=== PATIENT | female | born 1985 | race Caucasian/White ===

== ENCOUNTER 2018-09-29 18:09 | Emergency (ER) | payer SELFPAY ==
[2018-09-29] MEDS ORDERED: NA CHLORIDE 0.9% 1,000 ML ONE (18:46)
[2018-09-29 19:09] LABS: Absolute Lymphocytes (CBC) 2.2 K/uL (0.7-4.9); Basophils % 0.5 % (0-1.3); Eosinophils % 0.6 % (0-4.4); Hematocrit 40.8 % (36.0-45.0); Lymphocytes % 21.9 % (15.3-44.8); MPV 8.2 fL (7.6-11.3); Monocytes % 4.4 % (3.3-12.3); RBC Red Blood Cell Count 4.85 M/uL (3.86-4.86)
[2018-09-29 19:17] LABS: Albumin 3.6 g/dL (3.4-5.0); Bilirubin Direct 0.1 mg/dL (0-0.2); Bilirubin Total 0.5 mg/dL (0.2-1.0); Potassium 3.6 mmol/L (3.5-5.1); Protein, Total 6.9 g/dL (6.4-8.2)
--- NOTE | 2018-09-29 20:03 | RAD REPORT ---
EXAM DESCRIPTION: CTAbdomen Pelvis W Contrast - 09/29/2018 7:55 pm CLINICAL HISTORY: Abdominal pain. gi bleeding COMPARISON: Head C Spine Cap W Con dated 03/24/2017 TECHNIQUE: Biphasic CT imaging of the abdomen and pelvis was performed with 100 ml non-ionic IV cont rast. All CT scans are performed using dose optimization technique as appropriate and may include automated exposure control or mA/KV adjustment according to patient size. FINDINGS: The lung bases are clear. The liver, spleen, pancreas, adrenal glands and kidneys are within normal limits. No bowel obstruction, free air, free fluid or abscess. The appendix is not identified as a discrete structure, however, no secondary findings of appendicitis are identified. No evidence of significan t lymphadenopathy. No suspicious bony findings. IMPRESSION: No acute intra-abdominal or pelvic finding.
--- NOTE | 2018-09-29 20:43 | ER ---
Nurse's Notes [facility] Name: Latosha Wilkinson Age: 32 yrs Sex: Female : 1985 Arrival Date: 09/29/2018 Time: 18:11 Bed 17 Private MD: Diagnosis: Diarrhea, unspecified Presentation: 09/29 18:13 Presenting complaint: Patient states: valerio been having blood on my bowel movement for 2 hj weeks now and its daily and today im light headed; reports abd pain, N/V;. Transition of care: patient was not received from another setting of care. Onset of symptoms was September 29, 2018. Risk Assessment: Do you want to hurt yourself or someone else? Patient reports no desire to harm self or others. Initial Sepsis Screen: Does the patient meet any 2 criteria? No. Patient's initial sepsis screen is negative. Does the patient have a suspected source of infection? No. Patient's initial sepsis screen is negative. Care prior to arrival: None. 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 - Social history:: Smoking status: . - Ebola Screening: : Patient denies travel to an Ebola-affected area in the 21 days before illness onset. Screenin:21 Abuse screen: Denies threats or abuse. Nutritional screening: No deficits noted. tw2 Tuberculosis screening: No symptoms or risk factors identified. Fall Risk None identified. Assessment: 18:24 General: Appears in no apparent distress. slender, Behavior is calm, cooperative, tw2 appropriate for age. Pain: Denies pain. Neuro: Level of Consciousness is awake, alert, obeys commands, Oriented to person, place, time, situation. Cardiovascular: Heart tones S1 S2 Patient's skin is warm and dry. Respiratory: Airway is patent Respiratory effort is even, unlabored, Respiratory pattern is regular, symmetrical, Breath sounds are clear bilaterally. GI: Abdomen is flat, Bowel sounds present X 4 quads. Reports bloody stool. : No signs and/or symptoms were reported regarding the genitourinary system. EENT: No signs and/or symptoms were reported regarding the EENT system. Derm: No signs and/or symptoms reported regarding the dermatologic system. Musculoskeletal: Range of motion: intact in all extremities. 19:13 Reassessment: Patient appears in no apparent distress at this time. Patient and/or tl2 family updated on plan of care and expected duration. Pain level reassessed. Patient is alert, oriented x 3, equal unlabored respirations, skin warm/dry/pink. awaiting lab results, pt resting, no questions or concerns at this time. 21:10 Reassessment: Patient appears in no apparent distress at this time. Patient and/or tl2 family updated on plan of care and expected duration. Pain level reassessed. Patient is alert, oriented x 3, equal unlabored respirations, skin warm/dry/pink. pt verbalized understanding of discharge instructions, need for follow up and prescription usage. Vital Signs: 18:15 BP 100 / 62; Pulse 72; Resp 18; Temp 97.8(TE); Pulse Ox 99% on R/A; Weight 61.23 kg; hj Height 5 ft. 3 in. (160.02 cm); 19:14 BP 94 / 61; Pulse 66; Resp 18; Pulse Ox 98% on R/A; tl2 20:26 BP 100 / 68; Pulse 62; Resp 18; Pulse Ox 98% on R/A; tl2 20:26 BP 99 / 71 Supine; Pulse 58; tl2 20:26 BP 100 / 68 Sitting; Pulse 62; tl2 20:26 BP 102 / 77 Standing; Pulse 61; tl2 18:15 Body Mass Index 23.91 (61.23 kg, 160.02 cm) ED Course: 18:11 Patient arrived in ED. as 18:14 Triage completed. hj 18:14 Arm band placed on right wrist. hj 18:18 Charlie Rueda PA is PHCP. [facility] 18:18 Felix Diamond MD is Attending Physician. [facility] 18:21 Shi Lacey RN is Primary Nurse. tw2 18:21 Bed in low position. Call light in reach. Adult w/ patient. tw2 18:45 Inserted saline lock: 22 gauge in right antecubital area, using aseptic technique. tw2 Blood collected. 19:07 Report given to Nohemy,RN - pending results at this time. tw2 19:34 Radiology exam delayed due to test not completed at this time. vm2 19:57 CT Abd/Pelvis - IV Contrast Only In Process Unspecified. EDMS 20:43 Leo Kent MD is Referral Physician. jmm 21:10 No provider procedures requiring assistance completed. IV discontinued, intact, tl2 bleeding controlled, No redness/swelling at site. Pressure dressing applied. Administered Medications: 18:47 Drug: NS 0.9% 1000 ml Route: IV; Rate: 1 bolus; Site: right antecubital; tw2 19:50 Follow up: IV Status: Completed infusion; IV Intake: 1000ml tl2 Intake: 19:50 IV: 1000ml; Total: 1000ml. tl2 Outcome: 20:42 Discharge ordered by . jmm 21:10 Discharged to home ambulatory, with family. tl2 21:10 Condition: stable 21:10 Discharge instructions given to patient, Instructed on discharge instructions, follow up and referral plans. medication usage, Demonstrated understanding of instructions, follow-up care, medications, Prescriptions given X 1. 21:14 Patient left the ED. tl2 Signatures: Dispatcher [employer] EDMS Charlie Rueda PA PA jmm Martinez, Amelia as Joaquin, Henry, RN RN hj Wise, Tara, RN RN 2 Nohemy Zhou RN RN 2 Milvia Caputo 2 Corrections: (The following items were deleted from the chart) 18:16 18:15 61.23 kg; Height 5 ft. 3 in.; BMI: 23.9; hj hj 18:16 18:15 Pulse 72bpm; Resp 18bpm; Pulse Ox 99% RA; Temp 97.8F Temporal; 61.23 kg; Height 5 hj ft. 3 in.; BMI: 23.9; hj
--- NOTE | 2018-09-29 20:43 | EDPHYS ---
Physician Documentation [facility] Name: Latosha Wilkinson Age: 32 yrs Sex: Female : 1985 Arrival Date: 09/29/2018 Time: 18:11 Bed 17 Private MD: ED Physician Felix Diamond HPI: 09/29 18:21 This 32 yrs old Female presents to ER via Ambulatory with complaints of jmm Bloody Stools. 18:21 The patient presents to the emergency department with nausea, diarrhea, abdominal pain. jmm Onset: The symptoms/episode began/occurred gradually, 2 week(s) ago. Possible causes: unknown. The symptoms are aggravated by nothing. The symptoms are alleviated by nothing. Associated signs and symptoms: Pertinent positives: abdominal pain, diarrhea, Pertinent negatives: fever. The patient has experienced similar episodes in the past. This is a 32 year old female with no known chronic medical conditions that presents to the ED with complaints of abdominal pain, diarrhea, and blood stools for the past 2 weeks. Patient also complains of weakness and fatigue. Patient denies fever. Patient has had similar episode in the past when diagnosed with hemorrhoids. . 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 - Social history:: Smoking status: . - Ebola Screening: : Patient denies travel to an Ebola-affected area in the 21 days before illness onset. ROS: 18:21 Constitutional: Negative for fever, chills, and weight loss, Cardiovascular: Negative jmm for chest pain, palpitations, and edema, Respiratory: Negative for shortness of breath, cough, wheezing, and pleuritic chest pain. 18:21 Abdomen/GI: Positive for abdominal pain, diarrhea. 18:21 Neuro: Positive for weakness. 18:21 All other systems are negative. Exam: 18:21 Constitutional: This is a well developed, well nourished patient who is awake, alert, jmm and in no acute distress. Head/Face: atraumatic. Eyes: EOMI, no conjunctival erythema appreciated ENT: Moist Mucus Membranes Neck: Trachea midline, Supple Chest/axilla: Normal chest wall appearance and motion. Cardiovascular: Regular rate and rhythm. No edema appreciated Respiratory: Normal respirations, no respiratory distress appreciated 18:21 Back: Normal ROM Skin: General appearance color normal MS/ Extremity: Moves all extremities, no obvious deformities appreciated, no edema noted to the lower extremities Neuro: Awake and alert, normal gait Psych: Behavior is normal, Mood is normal, Patient is cooperative and pleasant 18:21 Abdomen/GI: Inspection: abdomen appears normal, Bowel sounds: normal, Palpation: abdomen is soft and non-tender, in all quadrants. Vital Signs: 18:15 BP 100 / 62; Pulse 72; Resp 18; Temp 97.8(TE); Pulse Ox 99% on R/A; Weight 61.23 kg; hj Height 5 ft. 3 in. (160.02 cm); 19:14 BP 94 / 61; Pulse 66; Resp 18; Pulse Ox 98% on R/A; tl2 20:26 BP 100 / 68; Pulse 62; Resp 18; Pulse Ox 98% on R/A; tl2 20:26 BP 99 / 71 Supine; Pulse 58; tl2 20:26 BP 100 / 68 Sitting; Pulse 62; tl2 20:26 BP 102 / 77 Standing; Pulse 61; tl2 18:15 Body Mass Index 23.91 (61.23 kg, 160.02 cm) hj MDM: 18:21 Patient medically screened. [facility] 20:40 Data reviewed: vital signs, nurses notes. Counseling: I had a detailed discussion with alexis the patient and/or guardian regarding: the historical points, exam findings, and any diagnostic results supporting the discharge/admit diagnosis, lab results, radiology results, the need for outpatient follow up, to return to the emergency department if symptoms worsen or persist or if there are any questions or concerns that arise at home. 21:09 ED course: Patient is alert and non toxic in appearance in the ED. Orthostatics normal. [facility] patient is advised to follow up with gi for further evaluation. patient is otherwise given strict return precautions. patient understood and agrees with the plan of care. . 09/29 18: Order name: Basic Metabolic Panel; Complete Time: 19:29 [facility] 09/29 18:27 Order name: CBC with Diff; Complete Time: 19:29 [facility] 09/29 18:27 Order name: Creatinine for Radiology; Complete Time: 19:29 [facility] 09/29 18:27 Order name: Hepatic Function; Complete Time: 19:29 [facility] 09/29 18:27 Order name: Lipase; Complete Time: 19:29 [facility] 09/29 18:27 Order name: Type And Screen; Complete Time: 19:43 [facility] 09/29 18:27 Order name: IV Saline Lock; Complete Time: 18:48 [facility] 09/29 18:27 Order name: Labs collected and sent; Complete Time: 18:48 [facility] 09/29 19:31 Order name: CT Abd/Pelvis - IV Contrast Only; Complete Time: 20:11 [facility] 09/29 19:31 Order name: Urine Test (obtain specimen); Complete Time: 19:35 [facility] 09/29 20:09 Order name: Urine Dipstick--Ancillary (enter results); Complete Time: 21:10 [facility] 09/29 20:09 Order name: Urine --Ancillary (enter results); Complete Time: 21:10 [facility] 09/29 20:22 Order name: Orthostatic Blood Pressure; Complete Time: 20:27 [facility] Administered Medications: 18:47 Drug: NS 0.9% 1000 ml Route: IV; Rate: 1 bolus; Site: right antecubital; tw2 19:50 Follow up: IV Status: Completed infusion; IV Intake: 1000ml tl2 Disposition: 09/29/18 20:42 Discharged to Home. Impression: Diarrhea, unspecified. - Condition is Stable. - Discharge Instructions: Food Choices to Help Relieve Diarrhea, Adult, Bloody Diarrhea. - Prescriptions for Bentyl 20 mg Oral Tablet - take 1 tablet by ORAL route every 6 hours As needed; 20 tablet. - Medication Reconciliation Form, Thank You Letter, Antibiotic Education, Prescription Opioid Use form. - Follow up: Private Physician; When: 2 - 3 days; Reason: Recheck today's complaints, Continuance of care, Re-evaluation by your physician. Follow up: Leo Kent MD; When: 2 - 3 days; Reason: Recheck today's complaints, Continuance of care, Re-evaluation by your physician. Signatures: Dispatcher [employer] EDMS Charlie Rueda PA PA jmm Joaquin, Henry, RN RN hj Wise, Tara, RN RN tw2 Nohemy Zhou RN RN tl2 Corrections: (The following items were deleted from the chart) 20:43 20:42 09/29/2018 20:42 Discharged to Home. Impression: Diarrhea, unspecified. Condition jmm is Stable. Forms are Medication Reconciliation Form, Thank You Letter, Antibiotic Education, Prescription Opioid Use. Follow up: Private Physician; When: 2 - 3 days; Reason: Recheck today's complaints, Continuance of care, Re-evaluation by your physician. [email or web address] 21:14 20:43 09/29/2018 20:42 Discharged to Home. Impression: Diarrhea, unspecified. Condition tl2 is Stable. Discharge Instructions: Food Choices to Help Relieve Diarrhea, Adult, Bloody Diarrhea. Forms are Medication Reconciliation Form, Thank You Letter, Antibiotic Education, Prescription Opioid Use. Follow up: Private Physician; When: 2 - 3 days; Reason: Recheck today's complaints, Continuance of care, Re-evaluation by your physician. Follow up: Leo Kent; When: 2 - 3 days; Reason: Recheck today's complaints, Continuance of care, Re-evaluation by your physician. [facility]
[2018-09-29 21:07] LABS: Urine Blood NEGATIVE (NEG); Urine Glucose NEGATIVE (NEG); Urine Protein 2+ (NEG); Urine Specific Gravity >1.030 (1.005-1.030)
== END 2018-09-29 21:14 | disposition home or self-care (01) ==
LOC: ER 18:09
DX: R19.7 Diarrhea, unspecified (principal)
CPT/HCPCS: 36415; 74177; 80048; 80076; 81003; 81025; 83690; 85025; 86850; 86900; 86901; J7030; Q9967

== ENCOUNTER 2019-06-02 10:22 | Emergency (ER) | payer SELFPAY ==
[2019-06-02] MEDS ORDERED: LIDOCAINE 1% MPF 5 ML VIAL ONE ×2 (11:49→12:23)
--- NOTE | 2019-06-02 12:45 | ER ---
Nurse's Notes [facility] Name: Latosha Wilkinson Age: 33 yrs Sex: Female : 1985 Arrival Date: 06/02/2019 Time: 10:28 Bed 20 Private MD: Diagnosis: Abscess of Bartholin's gland Presentation: 06/01 10:55 Chief complaint: Patient states: right side of labia is swollen X 4 days, feels like a iw knot is in it. Coronavirus screen: The patient has NOT traveled to a country currently being monitored by the [facility] within the last 14 days. Proceed with normal triage procedures. The patient has NOT had contact with any known and/or suspected case of coronavirus. Proceed with normal triage procedures. Ebola Screen: Patient negative for fever greater than or equal to 101.5 degrees Fahrenheit, and additional compatible Ebola Virus Disease symptoms Patient denies exposure to infectious person. Patient denies travel to an Ebola-affected area in the 21 days before illness onset. No symptoms or risks identified at this time. Initial Sepsis Screen: Does the patient meet any 2 criteria? No. Patient's initial sepsis screen is negative. Does the patient have a suspected source of infection? No. Patient's initial sepsis screen is negative. Risk Assessment: Do you want to hurt yourself or someone else? Patient reports no desire to harm self or others. 10:55 Method Of Arrival: Ambulatory iw 10:55 Acuity: MARIANNE 4 iw 11:15 Onset of symptoms is unknown. 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 - Social history:: Smoking status: Patient reports the use of cigarette tobacco products, smokes one-half pack cigarettes per day. Screenin:15 Abuse screen: Denies threats or abuse. Denies injuries from another. Nutritional screening: No deficits noted. Tuberculosis screening: No symptoms or risk factors identified. Fall Risk None identified. Assessment: 11:15 General: Appears in no apparent distress. Behavior is calm, cooperative, appropriate wh for age. Pain: Denies pain. Neuro: Level of Consciousness is awake, alert, obeys commands, Oriented to person, place, time, situation, Appropriate for age. Cardiovascular: Capillary refill < 3 seconds. Respiratory: Airway is patent Respiratory effort is even, unlabored, Respiratory pattern is regular, symmetrical. GI: Abdomen is flat, non-distended. : Reports right side of labia swelling. EENT: No signs and/or symptoms were reported regarding the EENT system. Derm: Skin is intact, is healthy with good turgor, Skin is pink, warm \T\ dry. normal. Musculoskeletal: Circulation, motion, and sensation intact. 12:22 Reassessment: Patient appears in no apparent distress at this time. No changes from previously documented assessment. Patient and/or family updated on plan of care and expected duration. Pain level reassessed. Patient is alert, oriented x 3, equal unlabored respirations, skin warm/dry/pink. I\T\D at bedside by provider. 13:01 Reassessment: Patient appears in no apparent distress at this time. No changes from previously documented assessment. Patient and/or family updated on plan of care and expected duration. Pain level reassessed. Patient is alert, oriented x 3, equal unlabored respirations, skin warm/dry/pink. Vital Signs: 10:55 BP 99 / 74; Pulse 82; Resp 16; Temp 97.4; Pulse Ox 100% on R/A; Weight 54.43 kg; Height iw 5 ft. 3 in. (160.02 cm); Pain 8/10; 12:30 BP 99 / 63; Pulse 78; Resp 18; Pulse Ox 99% ; wh 10:55 Body Mass Index 21.26 (54.43 kg, 160.02 cm) iw ED Course: 10:28 Patient arrived in ED. mr 10:56 Triage completed. iw 10:57 Arm band placed on. iw 11:12 Juan Carlos Snider is Primary Nurse. wh 11:15 Patient has correct armband on for positive identification. Placed in gown. Bed in low wh position. Call light in reach. Side rails up X 1. Pulse ox on. NIBP on. 11:17 Lex Pinedo PA is PHCP. jr8 11:17 Omid Duong MD is Attending Physician. jr8 12:19 Assist provider with I \T\ D: of an abscess on right labia Set up I\T\D tray. Performed by Lex HEDRICK Wound packed. Dressing with Patient tolerated well. 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 Patient did not have IV access during this emergency room visit. Administered Medications: 12:19 Drug: Lidocaine (1 %) 5 mg {Note: Administered by Provider Shahida.} Route: Infiltration; Outcome: 12:44 Discharge ordered by MD. hernandez 13:01 Discharged to home ambulatory. 13:01 Condition: stable 13:01 Discharge instructions given to patient, Instructed on discharge instructions, follow up and referral plans. no drinking with medication, no driving heavy equipment, medication usage, wound care, Demonstrated understanding of instructions, follow-up care, medications, wound care, POC Prescriptions given X 3. 13:02 Patient left the ED. Signatures: Anita Huertas HenryBailey RN Lex Ibrahim PA PA jr8 Juan Carlos Snider
--- NOTE | 2019-06-02 12:45 | EDPHYS ---
Physician Documentation [facility] Name: Latosha Wilkinson Age: 33 yrs Sex: Female : 1985 Arrival Date: 06/02/2019 Time: 10:28 Bed 20 Private MD: ED Physician Omid Duong HPI: 06/01 11:45 This 33 yrs old Female presents to ER via Ambulatory with complaints of jr8 Vaginal swelling. 11:45 The patient presents with vaginal swelling. Onset: The symptoms/episode began/occurred jr8 gradually, 4 day(s) ago. Modifying factors: The symptoms are alleviated by nothing, the symptoms are aggravated by movement, pressure, walking. Associated signs and symptoms: The patient has no apparent associated signs or symptoms. Severity of symptoms: At their worst the symptoms were moderate, in the emergency department the symptoms are unchanged. The patient has not experienced similar symptoms in the past. The patient has not recently seen a physician. 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 - Social history:: Smoking status: Patient reports the use of cigarette tobacco products, smokes one-half pack cigarettes per day. ROS: 11:45 Eyes: Negative for injury, pain, redness, and discharge, ENT: Negative for injury, jr8 pain, and discharge, Neck: Negative for injury, pain, and swelling, Cardiovascular: Negative for chest pain, palpitations, and edema, Respiratory: Negative for shortness of breath, cough, wheezing, and pleuritic chest pain, Abdomen/GI: Negative for abdominal pain, nausea, vomiting, diarrhea, and constipation, Back: Negative for injury and pain, MS/Extremity: Negative for injury and deformity, Skin: Negative for injury, rash, and discoloration, Neuro: Negative for headache, weakness, numbness, tingling, and seizure. 11:45 : Positive for vaginal swelling/pain. Exam: 11:56 Eyes: Pupils equal round and reactive to light, extra-ocular motions intact. Lids and jr8 lashes normal. Conjunctiva and sclera are non-icteric and not injected. Cornea within normal limits. Periorbital areas with no swelling, redness, or edema. ENT: Nares patent. No nasal discharge, no septal abnormalities noted. Tympanic membranes are normal and external auditory canals are clear. Oropharynx with no redness, swelling, or masses, exudates, or evidence of obstruction, uvula midline. Mucous membranes moist. Neck: Trachea midline, no thyromegaly or masses palpated, and no cervical lymphadenopathy. Supple, full range of motion without nuchal rigidity, or vertebral point tenderness. No Meningismus. Cardiovascular: Regular rate and rhythm with a normal S1 and S2. No gallops, murmurs, or rubs. Normal PMI, no JVD. No pulse deficits. Respiratory: Lungs have equal breath sounds bilaterally, clear to auscultation and percussion. No rales, rhonchi or wheezes noted. No increased work of breathing, no retractions or nasal flaring. Abdomen/GI: Soft, non-tender, with normal bowel sounds. No distension or tympany. No guarding or rebound. No evidence of tenderness throughout. Back: No spinal tenderness. No costovertebral tenderness. Full range of motion. Skin: Warm, dry with normal turgor. Normal color with no rashes, no lesions, and no evidence of cellulitis. MS/ Extremity: Pulses equal, no cyanosis. Neurovascular intact. Full, normal range of motion. Neuro: Awake and alert, GCS 15, oriented to person, place, time, and situation. Cranial nerves II-XII grossly intact. Motor strength 5/5 in all extremities. Sensory grossly intact. Cerebellar exam normal. Normal gait. 11:56 : Pelvic Exam: External exam: Bartholin's cyst present, erythema is noted, fluctuance noted suggestive of abscess formation . Vital Signs: 10:55 BP 99 / 74; Pulse 82; Resp 16; Temp 97.4; Pulse Ox 100% on R/A; Weight 54.43 kg; Height iw 5 ft. 3 in. (160.02 cm); Pain 8/10; 12:30 BP 99 / 63; Pulse 78; Resp 18; Pulse Ox 99% ; wh 10:55 Body Mass Index 21.26 (54.43 kg, 160.02 cm) iw Procedures: 12:43 I \T\ D: Incision and drainage was performed for an abscess of the right Bartholin's jr8 gland. Prepped with Betadine, Anesthetized with 6 ml's 1% Lidocaine. Incised with #11 blade. Drained moderate amount purulent fluid. bloody fluid. Loculations removed. Abscess cavity explored. Packed with word catheter . Dressing: None the patient tolerated the procedure well. MDM: 11:30 Patient medically screened. jr8 12:43 Data reviewed: vital signs, nurses notes, and as a result, I will discharge patient. jr8 Data interpreted: Pulse oximetry: on room air is 100 %. Interpretation: normal. Counseling: I had a detailed discussion with the patient and/or guardian regarding: the historical points, exam findings, and any diagnostic results supporting the discharge/admit diagnosis, the need for outpatient follow up, a family practitioner, to return to the emergency department if symptoms worsen or persist or if there are any questions or concerns that arise at home. 12:49 ED course: [facility] website for patient reviewed. Last and only prescription was in 08/2018. jr8 Patient at very low risk of abuse. Ok to have medication at this time . 06/01 11:39 Order name: I\T\D Setup; Complete Time: 11:47 jr8 Administered Medications: 12:19 Drug: Lidocaine (1 %) 5 mg {Note: Administered by Provider Shahida.} Route: Infiltration;wh Disposition: 18:29 Co-signature as Attending Physician, Omid Duong MD Signature for administrative ps1 purposes. Did not see or evaluate patient. . Disposition: 06/02/19 12:44 Discharged to Home. Impression: Abscess of Bartholin's gland. - Condition is Stable. - Discharge Instructions: Bartholin Cyst or Abscess, Incision and Drainage. - Prescriptions for Clindamycin HCl 300 mg Oral Capsule - take 1 capsule by ORAL route every 6 hours for 10 days; 40 capsule. Ibuprofen 800 mg Oral Tablet - take 1 tablet by ORAL route every 12 hours As needed take with food; 20 tablet. Tylenol- Codeine #3 300-30 mg Oral Tablet - take 2 tablets by ORAL route every 6 hours As needed; 20 tablet. - Medication Reconciliation Form, Thank You Letter, Antibiotic Education, Prescription Opioid Use form. - Follow up: Private Physician; When: 48 Hours; Reason: Wound Recheck, Recheck today's complaints, Continuance of care, Re-evaluation by your physician. - Problem is new. - Symptoms have improved. Signatures: Bailey Figueroa RN RN iw Lex Pinedo PA PA jr8 Juan Carlos Snider Omid Duong MD MD ps1 Corrections: (The following items were deleted from the chart) 13:02 12:44 06/02/2019 12:44 Discharged to Home. Impression: Abscess of Bartholin's gland. Condition is Stable. Forms are Medication Reconciliation Form, Thank You Letter, Antibiotic Education, Prescription Opioid Use. Follow up: Private Physician; When: 48 Hours; Reason: Wound Recheck, Recheck today's complaints, Continuance of care, Re-evaluation by your physician. Problem is new. Symptoms have improved. jr8
[2019-06-02 13:15] VITALS: TEMP 97.4
[2019-06-02 13:16] VITALS: BP 99/63; O2SAT 99
== END 2019-06-02 13:02 | disposition home or self-care (01) ==
LOC: ER 10:22
PROC: 0U9L0ZZ Drainage of Vestibular Gland, Open Approach (ICD-10-PCS; principal; 2019-06-02)
DX: N75.1 Abscess of Bartholin's gland (principal)
CPT/HCPCS: 99284

== ENCOUNTER 2019-11-10 14:37 | Emergency (ER) | payer SELFPAY ==
--- OUTSIDE RECORDS SUMMARY | 2019-11-10 14:40 | XMS REPORT | Summary of Care ---
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 0 Active DEXTRIN, Indications: OTC ORALIndications: OTC SUPPLEMENT SUPPLEMENT documented as of this encounter (statuses as of 10/24/2019) Active Problems Problem Noted Date Rectal adenocarcinoma 08/23/2019 documented as of this encounter (statuses as of 10/24/2019) Social History Tobacco Use Types Packs/Day Years Used Date Current Every Day Smoker Cigarettes 15 Alcohol Use Drinks/Week oz/Week Comments Not Currently Sex Assigned at Date Recorded Not on file COVID-19 Exposure Response Date Recorded In the last month, have you been in contact with No / Unsure 10/24/2019 2:38 PM CDT someone who was confirmed or suspected to have Coronavirus / COVID-19? documented as of this encounter Last Filed Vital Signs Not on filedocumented in this encounter Nursing Notes Princess Eva Jones - 10/24/2019 3:15 PM CDT Venipuncture collection performed by clean technique on the left anticubitus. Total of 1 attempts were made. Slight pressure and a bandage/dressing were applied to the site(s). The patient experienced no complications. The following specimens were processed according to instructions and sent to [facility] laboratories per lab order on 10/24/2019: LT BLUE 1 SST 2 RED LAV 1 PPT DK GREEN (LiHep) DK GREEN (SodH) SCHULER DK BLUE (K2) DK BLUE (S) ACD Blood Culture NIPT/NTD Drawn by Nyla Stoneectronically signed by Princess Eva Jones at 10/24/2019 3:43 PM CDTdocumented in this encounter Plan of Treatment Date Type Specialty Care Team Description 2019 Office Visit Oncology Brianna Buckley MD [address] [place] [address] [phone] Name Type Priority Associated Diagnoses Date/Ti me CBC WITH DIFF LAB Routine Rectal adenocarcinoma 10/23 3:42 PM CDT COMP. METABOLIC PANEL LAB Routine Rectal adenocarcino ma 10/24/2019 3:42 PM ([id number]) CDT CARCINOEMBRYONIC ANTIGEN LAB Routine Rectal adenocarc inoma 10/24/2019 3:42 PM CDT PROTHROMBIN TIME / INR LAB Routine Rectal adenocarcin eduardo 10/24/2019 3:42 PM CDT TOTAL IRON BINDING CAPACITY LAB Routine Rectal adenoc arcinoma 10/24/2019 3:42 PM CDT FERRITIN SERUM LAB Routine Rectal adenocarcinoma 10/14 3:42 PM CDT Health Maintenance Due Date Last Done Comments VARICELLA VACCINES (1 of 2 - 2-dose childhood series) 11/13/1984 PNEUMOCOCCAL 0-64 YEARS COMBINED SERIES (1 of 3 - 11/13/1989 PCV13) DTaP,Tdap,and Td Vaccines (1 - Tdap) 11/13/2002 PAP SMEAR 11/13/2004 INFLUENZA VACCINE (#1) 2019 Depression Screening 08/22/2020 08/23/2019 documented as of this encounter Results Not on filedocumented in this encounter Visit Diagnoses Diagnosis Rectal adenocarcinoma Malignant neoplasm of rectum documented in this encounter
--- OUTSIDE RECORDS SUMMARY | 2019-11-10 14:40 | XMS REPORT | Summary of Care ---
:1985 Author Organization [address] [address] Care Team Providers Name Role Phone Pcp, Patient Does Not Have A Primary Care Provider +1-000-00 0-0000 Reason for Visit Reason Comments Follow-up Encounter Details Date Type Department Care Team Description 08/23/[address] [facility] - [address] [place] [address] [address] [place] [phone] Allergies No Known Allergiesdocumented as of this encounter (statuses as of 08/25/2019) Medications Medication Sig Dispensed Refills Start Date End Date Status BENEFIBER, WHEAT Take by mouth. 0 Active DEXTRIN, Indications: OTC ORALIndications: OTC SUPPLEMENT SUPPLEMENT documented as of this encounter (statuses as of 08/25/2019) Active Problems Problem Noted Date Rectal adenocarcinoma 08/23/2019 documented as of this encounter (statuses as of 08/25/2019) Social History Tobacco Use Types Packs/Day Years Used Date Current Every Day Smoker Cigarettes 15 Alcohol Use Drinks/Week oz/Week Comments Not Currently Sex Assigned at Date Recorded Not on file Job Start Date Occupation Industry Not on file Not on file Not on file Travel History Travel Start Travel End No recent travel history available. COVID-19 Exposure Response Date Recorded In the last month, have you been in contact with No / Unsure 08/23/2019 2:03 PM CDT someone who was confirmed or suspected to have Coronavirus / COVID-19? documented as of this encounter Last Filed Vital Signs Not on filedocumented in this encounter Progress Notes Marti Leblanc [facility] - 08/23/2019 11:59 PM CDTSW Note: SW met with patient while in clinic re: funding follow-up Pt states she actually does have income of unemployment and therefore will not qualify for indigent in [facility]. Casebook will be initiated by the physician and SW asked patient to be diligent about turning documents in on time for proper consideration. Pt verbalized understanding and agreed. SW will remain available ALICIA Leblanc LMSW Brim Stitcher documented in this encounter Plan of Treatment Health Maintenance Due Date Last Done Comments VARICELLA VACCINES (1 of 2 - 2-dose childhood series) 11/13/1984 PNEUMOCOCCAL 0-64 YEARS COMBINED SERIES (1 of 3 - 11/13/1989 PCV13) DTaP,Tdap,and Td Vaccines (1 - Tdap) 11/13/1994 PAP SMEAR 11/13/2004 INFLUENZA VACCINE (Season Ended) 2019 Depression Screening 08/22/2020 08/23/2019 documented as of this encounter Results Not on filedocumented in this encounter
--- OUTSIDE RECORDS SUMMARY | 2019-11-10 14:40 | XMS REPORT | Summary of Care ---
:1985 Author Organization [address] [address] Care Team Providers Name Role Phone Pcp, Patient Does Not Have A Primary Care Provider +1-000-00 0-0000 Encounter Details Date Type Department Care Team Description 08/24/2019 Multidisciplinary [facility] August Silva, Conference Hematology / MD Oncology-[address] [address] [address] Floor [phone] [place] [address] Allergies No Known Allergiesdocumented as of this encounter (statuses as of 08/30/2019) Medications Medication Sig Dispensed Refills Start Date End Date Status BENEFIBER, WHEAT Take by mouth. 0 Active DEXTRIN, Indications: OTC ORALIndications: OTC SUPPLEMENT SUPPLEMENT documented as of this encounter (statuses as of 08/30/2019) Active Problems Problem Noted Date Rectal adenocarcinoma 08/23/2019 documented as of this encounter (statuses as of 08/30/2019) Social History Tobacco Use Types Packs/Day Years [...] Signs Not on filedocumented in this encounter Plan of Treatment Date Type Specialty Care Team Description 10/03/2019 Office Visit Oncology Brianna Buckley MD [address] [place] [phone] Health Maintenance Due Date Last Done Comments [...]
--- OUTSIDE RECORDS SUMMARY | 2019-11-10 14:40 | XMS REPORT | Summary of Care ---
:1985 Author Organization [facility] Address [address] [place] [address] Care Team Providers Name Role Phone Pcp, Patient Does Not Have A Primary Care Provider +1-000-00 0-0000 Reason for Visit Reason Comments Assessment Notification Encounter Details Date Type Department Care Team Description 10/17/2019 Telephone [facility] Brianna Buckley MD Assessment; Hematology-Oncology - [address] [place] [address] Notification [place], [place] [address] [phone] [place] [phone] [place] [address] Allergies No Known Allergiesdocumented as of this encounter (statuses as of 10/18/2019) Medications Medication Sig Dispensed Refills Start Date End Date Status JORDY FORD Take by mouth. 0 Active DEXTRIN, Indications: OTC ORALIndications: OTC SUPPLEMENT SUPPLEMENT documented as of this encounter (statuses as of 10/18/2019) Active Problems Problem Noted Date Rectal adenocarcinoma 08/23/2019 documented as of this encounter (statuses as of 10/18/2019) Social History Tobacco Use Types Packs/Day Years Used Date Current Every Day Smoker Cigarettes 15 Alcohol Use Drinks/Week oz/Week Comments Not Currently Sex Assigned at Date Recorded Not on file documented as of this encounter Last Filed Vital Signs Not on filedocumented in this encounter Miscellaneous Notes Telephone Encounter - Joy Berkowitz RN - 10/18/2019 3:[address] Buckley for follow up. elephone Encounter - Allyssa Asif - 10/18/2019 3:27 PM CDTPatient just wanted to let you know she went to the ER and they gave her 1. acetaminphen 2. methyltrad 3. Gabapetin And also a shot for the pain. She just wanted you to know Thank you Telephone Encounter - Joy Berkowitz RN - 10/17/2019 12:10 PM CDTPatient contacted and given advise to get evaluated. Patient intends to come to ER as she is in severe pain. elephone Encounter - Brianna Buckley MD - 10/17/2019 11:54 AM CDTShe can to urgent care or PCP For further eval- possible DVT study and a UA Telephone Encounter - Joy Berkowitz RN - 10/17/2019 11:03 AM CDTSpoke with patient identified patient by name and . Introduced myself as Joy Berkowitz RN, Dr. Buckley's support nurse. Informed patient I am following up on telephone call. Patient states thather legs are really hurting her. She is taking Advil and Tylenol with no relief. She also states she is having a brownish discharge from her vagina that has an odor. The completed casebook paper work and has sent this in. Christine Asif and Marti Leblanc were contacted to make sure they received this. Patient would like something for pain or go to ER. elephone Encounter - Araceli Pascual - 10/17/2019 9:45 AM CDT Patient called stating she is having severe leg pain that has worsened the past 2-3 days. She statedshe is also concerned she may have a UTI and is having blood in her bowel movements. She is requesting a call back from a nurse. Thank you. documented in this encounter Plan of Treatment Date Type Specialty Care Team Description 10/24/2019 Office Visit Oncology Brianna Buckley MD [address] [place] [phone] Health Maintenance Due Date Last Done [...]
--- OUTSIDE RECORDS SUMMARY | 2019-11-10 14:40 | XMS REPORT | Summary of Care ---
:1985 Author Organization [facility] Address [address] [place] [id number] Care Team Providers Name Role Phone Pcp, Patient Does Not Have A Primary Care Provider +1-000-00 0-0000 Reason for Visit Reason Comments Cancer Encounter Details Date Type Department Care Team Description 08/23/2019 Office Visit [facility] Brianna Buckley MD Rectal adenocarcinoma Hematology-Oncology [address] [facility] (Primary Dx) - [place], [place] [address] [place] [phone] [facility] [phone] [facility], [address] [place] [address] Allergies No Known Allergiesdocumented as of this encounter (statuses as of 08/24/2019) Medications Medication Sig Dispensed Refills Start Date End Date Status LOGAN WHEAT Take by mouth. 0 Active DEXTRIN, Indications: OTC ORALIndications: OTC SUPPLEMENT SUPPLEMENT documented as of this encounter (statuses as of 08/24/2019) Active Problems Problem Noted Date Rectal adenocarcinoma 08/23/2019 documented as of this encounter (statuses as of 08/24/2019) Social History Tobacco Use Types Packs/Day Years [...] of this encounter Last Filed Vital Signs Vital Sign Reading Time Taken Comments Blood Pressure 101/68 08/23/2019 2:06 PM CDT Pulse 74 08/23/2019 2:06 PM CDT Temperature 36.2 C (97.2 F) 08/23/2019 2:06 PM CDT Respiratory Rate 18 08/23/2019 2:06 PM CDT Oxygen Saturation 98% 08/23/2019 2:06 PM CDT Inhaled Oxygen Concentration - - Weight 51.6 kg (113 lb 11.2 oz) 08/23/2019 2:06 PM CDT Height 160 cm (5' 3") 08/23/2019 2:06 PM CDT Body Mass Index 20.14 08/23/2019 2:06 PM CDT documented in this encounter Progress Notes Brianna Buckley MD - 08/23/2019 2:00 PM CDT Medical Oncology Clinic Note Patient: Latosha Wilkinson Age: [age] year old Attending: Brianna Buckley MD Date of Visit: August 23, 2019 Chief Complaint: Chief Complaint Patient presents with Cancer Cancer History: Rectal Adenocarcinoma ? T1 NOM0 Stage I Onc history Rectal adenocarcinoma 07/15/2019 Tumor Markers CEA 9.9 07/18/[address] chest /abdomen/pelvis Rectal fullness 2 mm Lung nodule mostly benign 07/26/2019 Initial Diagnosis Rectal adenocarcinoma 07/26/2019 Biopsy Colonoscopy and biopsy shows Invasive colon adenocarcinoma - outs anne marie pathology - no slides at this time Subjective Mucous bleeding HPI: Latosha Wilkinson is a 33 year old female who presents for follow up for the above cancer. She reports having altered bowel movement and blood in stools going on 4 years for which she had work which as above shows 2 .5 cm rectal mass. H/o anal sex but not currently H/o weight loss 20 pounds over 6 months. H/o loss of appetite .Denies any nausea/vomiting .Continuesto have loose/mucosy stools mixed with Blood. Also reports left sided leg pain Starting her butt and radiating down her thighs Family h/o cancer +ve Mother had Breast and ovarian cancer . H/o skin cancer ? Melanoma in maternal grandmother . She does not have a father , so cancer h/o in the paternal side is unknown. She is going to try to find OUT . H/o drug abuse /amphetamine - but not for the past 2 years . Active smoker - smokes 4-5 cig per day for Several years . 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 Currently unemployed . She has 3 children, the eldest of whom is 18 years old . PMH H/o Drug abuse No Known Allergies Current Outpatient Medications Medication Sig Dispense Refill BENEFIBER, WHEAT DEXTRIN, ORAL Take by mouth. Indications: OTC SUPPLEMENT No current facility-administered medications for this visit. Social History Socioeconomic History Marital status: Single Spouse name: Not on file Number of children: Not on file Years of education: Not on file Highest education level: Not on file Occupational History Not on file Social Needs Financial resource strain: Not on file Food insecurity: Worry: Not on file Inability: Not on file Transportation needs: Medical: Not on file Non-medical: Not on file Tobacco Use Smoking status: Current Every Day Smoker Years: 15.00 Types: Cigarettes Substance and Sexual Activity Alcohol use: Not Currently Drug use: Not Currently Types: Amphetamines Sexual activity: Yes Lifestyle Physical activity: Days per week: Not on file Minutes per session: Not on file Stress: Not on file Relationships Social connections: Talks on phone: Not on file Gets together: Not on file Attends buddhism service: Not on file Active member of club or organization: Not on file Attends meetings of clubs or organizations: Not on file Relationship status: Not on file Intimate partner violence: Fear of current or ex partner: Not on file Emotionally abused: Not on file Physically abused: Not on file Forced sexual activity: Not on file Other Topics Concern Not on file Social History Narrative Not on file Family History Problem Relation Age of Onset Cancer Mother Cancer Maternal Grandmother OB History No data available Review of systems: Objective BP 101/68 | Pulse 74 | Temp 36.2 C (97.2 F) (Temporal Artery) | Resp 18 | Ht 5' 3" (1.6 m) | Wt 113 lb 11.2 oz (51.6 kg) | SpO2 98% | BMI 20.14 kg/m Review of Systems 10 point ROS negative except for that mentioned in HPI Physical examination: Performance status: ECOG 1 Physical Exam GEN: NAD Eyes: EOMI Mouth: Moist mucous membranes RS: clear breath sounds b/l CVS: s1 s2 normal, no M/R/G GI: soft, NT,ND, no apparent organomegaly, BS+ EXT: no C/C/E Neuro: cranial nerves 1 to 12 intact. Sensations: intact b/l Strength: intact and symmetric. Skin: no apparent rash Laboratory/Imaging: Reviewed outside records which included labs, imaging and path report which are scanned in [employer]. CEA was 9 ON 07/14 Assessment Diagnosis: Rectal Adenocarcinoma ? T1 NOM0 Stage I Based on Outside hospital records . Will need to obtain path slides and imaging disc . Patient has signed the release form to obtain records.. The path slides , need to be read by our pathologist To confirm diagnosis and will need comment on MSI status and KRAS,NRAS AND BRAF mutation status Plan Will initiate Casebook application for further work up and treatment as she is currently unemployedand states that She has applied for Medicaid and is waiting to hear back regarding to see if will qualify . Social work Evaluation and follow up Obtain all path slides, imaging work up done at outside hospital, to be read by our pathologist as above Lab work at the time of next visit CBC,CMP,CEA ,HIV and hepatitis serologies Colorectal surgery eval Radiation Oncology evaluation . Will discuss the case in the GI tumor board # Supportive Care - Pain:none - Constipation: discussed patient can use OTC laxatives and stool softeners as needed. - Emotional Distress: none # Counseling Smoking Cessation: Discussed harmful effects of tobacco consumption, importance of quitting and participation in smoking cessation assistance programs. # Code Status Full Code # Therapy Intent Curative Follow Up: Orders Placed This Encounter Procedures HIV 1/2 AG-AB WITH REFLEX All of the patient's questions were answered to their satisfaction. They will return to clinic as above. Patient was seen and discussed with Dr. Silva . RTC in 3 weeks Brianna Buckley MD, Oncology Fellow, Dept of Hematology/Oncology, PGY4 Pager: [phone] I personally examined the patient on 08/23/[address] Buckley's Medical Oncology fellowOncology Clinic New Patient note. I actively participated in the decision-making process. Please seeDr. Marcio's Medical Oncology fellow's Oncology Clinic New Patient note for additional details. August Silva MD, FACP Karen Byrne - 08/23/2019 2:00 PM CDT Vitals: 08/23/19 1406 BP: 101/68 Pulse: 74 Resp: 18 Temp: 36.2 C (97.2 F) TempSrc: Temporal Artery SpO2: 98% Weight: 113 lb 11.2 oz (51.6 kg) Height: 5' 3" (1.6 m) Vitals taken and documented. Medication list and allergies reconciled with patient . Awake, alert and oriented x3. documented in this encounter Plan of Treatment Name Type Priority Associated Diagnoses Order S chedule HIV 1/2 AG-AB WITH REFLEX LAB Routine Rectal adenocar cinoma Expected: 08/23/2019, Expires: 2020 HCV ANTIBODY LAB Routine Rectal adenocarcinoma Expect ed: 08/23/2019, Expires: 2020 HEPATITIS B SURFACE LAB Routine Rectal adenocarcinoma Expected: 08/23/2019, ANTIGEN Expires: 2020 HEPATITIS B CORE ANTIBODY LAB Routine Rectal adenocar cinoma Expected: 08/23/2019, IGM Expires: 2020 HEPATITIS B SURFACE LAB Routine Rectal adenocarcinoma Expected: 08/23/2019, ANTIBODY Expires: 2020 Health Maintenance Due Date Last Done Comments [...] this encounter Visit Diagnoses Diagnosis Rectal adenocarcinoma - Primary Malignant neoplasm of rectum documented in this encounter
--- OUTSIDE RECORDS SUMMARY | 2019-11-10 14:40 | XMS REPORT | Summary of Care ---
:1985 Author Organization [facility] Address [address] [place] [address] Care Team Providers Name Role Phone Pcp, Patient Does Not Have A Primary Care Provider +1-000-00 0-0000 Reason for Visit Reason Comments Assessment Encounter Details Date Type Department Care Team Description 10/17/2019 Telephone [facility] Brianna Buckley MD Assessment Hematology-Oncology - [address] [place] [phone] [facility] [phone] [facility], [address] [phone] ( Fax) 1.936 [place] [address] Allergies No Known Allergiesdocumented as of this encounter (statuses as of 10/17/2019) Medications Medication Sig Dispensed Refills Start Date End Date Status JORDY FORD Take by mouth. 0 Active DEXTRIN, Indications: OTC ORALIndications: OTC SUPPLEMENT SUPPLEMENT documented as of this encounter (statuses as of 10/17/2019) Active Problems Problem Noted Date Rectal adenocarcinoma 08/23/2019 documented as of this encounter (statuses as of 10/17/2019) Social History Tobacco Use Types Packs/Day Years [...] 10/24/2019 Office Visit Oncology Brianna Buckley MD [address] [place] [address] [phone] Health Maintenance Due Date Last Done [...]
--- OUTSIDE RECORDS SUMMARY | 2019-11-10 14:40 | XMS REPORT | Summary of Care ---
:1985 Author Organization [facility] Address [address] [place] [address] Care Team Providers Name Role Phone Pcp, Patient Does Not Have A Primary Care Provider +1-000-00 0-0000 Reason for Visit Reason Comments Case Management Latosha Wilkinson C asebook Request Incomplete Encounter Details Date Type Department Care Team Description 10/17/2019 Case Management [facility] Case Management Beulah Mondragon Case Management and Utilization C, RN (Latosha Wilkinson MRN Review [address] [place] [id number] Casebook [address] [place] [address] Request Incomplete) [place] [address] [place], [place] [phone] Allergies No Known Allergiesdocumented as of this [...] on filedocumented in this encounter Progress Notes Nuha Asif - 10/17/2019 2:12 PM CDT From: Nuha Asif On Behalf Of Care Management Case Book Coordinator Sent: Thursday, October 17, 2019 2:12 PM To: Kelley Dhillon <[email or web address]> Cc: Reinier Becerra <[email or web address]>; August Silva <[email or web address]>; Care Management Case Book Coordinator <[email or web address]>; Santo Newman <[email or web address]>; Marti Leblanc <[email or web address]>; Joy Berkowitz <[email or web address]>; Maggy Rowe <[email or web address]>; Brianna Buckley <[email or web address]>; Evelyn Reed <[email or web address]>; Allyssa Asif <[email or web address]>; Nuha Asif <[email or web address]> Subject: RE: Latosha Wilkinson Casebook Request Incomplete Dr. Dhillon, Thank you for your Casebook submission on 08/30/19 for Latosha Wilkinson . The Casebook Request for Latosha Wilkinson is incomplete. The patient/family must comply with the financial screening process and submit the required documents to determine eligibility for financial discounts. Each Casebook submission is reviewed medically and financially. The Casebook Committee will make a recommendation base on medical and financial eligibility. Each submission must be approved prior to the patient receiving services. The Casebook submission began the Financial Screening process on 08/30/19. According to [facility] [employer] Policy 9.8.2, patient/family must comply with the financial screening processand submit the required documents below to determine eligibility for financial discounts. The graph below displays the required and missing documents. Documentation Received Date Application for Financial Assistance Proof of [place] Identification Proof of dependents Proof of income Proof of [place] Residency Provide resource/asset information Provide proofs of [place] coverage The Casebook Coordinator monitors all financially pending cases. The graph below represents the communication and attempts to educate and collaborate with the patient/family to complete the financial screening process. Date Intervention 08/30/19 Mailed financial packet 09/20/19 Left voice message/ financial packet was mailed to pt 09/29/19 Left voice message, no proofs received as of today 10/17/19 Talked to pt will resend proofs, stated she already send info The CBC will continue to communicate with the patient/family to complete the financial screening process. As the sponsoring physician, feel free to contact the patient/family to engage, remind and reinforce the need to comply and complete the financial screening process to receive the request care. Please let me know if you have any questions or concerns. Respectfully, The Casebook Coordinator Update:08/30/19, 09/20/19, 09/29/19, 10/17/19 Thank you, Nuha Asif Casebook Coordinator Department of Care Management P: [phone] F: [phone] M: [id number] E: [email or web address] Casebook E: [email or web address] documented in this encounter Plan of Treatment Date Type Specialty Care Team Description 10/24/2019 Office Visit Oncology Brianna Buckley MD [address] [place] [address] [phone] Health Maintenance Due Date Last [...]
--- OUTSIDE RECORDS SUMMARY | 2019-11-10 14:40 | XMS REPORT | Summary of Care ---
:1985 Author Organization [facility] Address [address] [place] [address] Care Team Providers Name Role Phone Pcp, Patient Does Not Have A Primary Care Provider +[id number] Reason for Referral Radiology Services (MARY) Status Reason Specialty Diagnoses / Referred By Referred To Procedures Contact Contact New Request Diagnostic Diagnoses Rectal adenocarcinoma Brianna Buckley, Radiology Procedures IR CENTRALLY INSERTED DEVICE TUNNELED CATHETER WITH PORT 5 OR OLDER IR VENOUS ACCESS [address] [place] [phone] (Routine) Status Reason Specialty Diagnoses / Referred By Referred To Procedures Contact Contact New Request Pediatric Diagnoses Rectal adenocarcinoma Brianna Buckley, Genetics Procedures CONSULT/REFERRAL CANCER GENETICS [address] [place] [phone] (MARY) Status Reason Specialty Diagnoses / Referred By Referred To Procedures Contact Contact New Request Radiation Diagnoses Rectal adenocarcinoma Brianna Buckley, Therapy Procedures CONSULT RADIATION ONCOLOGY [address] [place] [phone] (MARY) Status Reason Specialty Diagnoses / Procedures Referred By Scooby junior To Contact Contact New Request Surgery Diagnoses Rectal adenocarcinoma Brianna Buckley, Procedures CONSULT/REFERRAL COLORECTAL SURGERY [address] [place] [phone] MRI/CAT Scan (MARY) Status Reason Specialty Diagnoses / Referred By Referred To Procedures Contact Contact New Request Diagnostic Diagnoses Rectal adenocarcinoma Brianna Buckley, Radiology Procedures MR PELVIS W WO CONTRAST [address] [place] [phone] MRI/CAT Scan (MARY) Status Reason Specialty Diagnoses / Referred By Referred To Procedures Contact Contact New Request Diagnostic Diagnoses Rectal adenocarcinoma Brianna Buckley, Radiology Procedures CT ABDOMEN PELVIS W CONTRAST [address] [place] [phone] MRI/CAT Scan (MARY) Status Reason Specialty Diagnoses / Referred By Referred To Procedures Contact Contact New Request Diagnostic Diagnoses Rectal adenocarcinoma Brianna Buckley, Radiology Procedures CT THORAX W CONTRAST [address] [place] [phone] Reason for Visit Reason Comments Cancer Encounter Details Date Type Department Care Team Description 10/24/2019 Office Visit [facility] Brianna Buckley MD Rectal adenocarcinoma Hematology-Oncology [address] [place] [address] (Primary Dx) - [employer] [address] [address] [address] [phone] [facility], [address] [place] [address] Allergies No Known Allergiesdocumented as of this encounter (statuses as of 10/24/2019) Medications Medication Sig Dispensed Refills Start Date End Date Status BENEFIBER, WHEAT Take by mouth. 0 Active DEXTRIN, Indications: OTC ORALIndications: OTC SUPPLEMENT SUPPLEMENT documented as of this encounter (statuses as of 10/24/2019) Active Problems Problem Noted Date Rectal adenocarcinoma 08/23/2019 Cancer Staging: Clinical: Stage Unknown (cTX, cNX, cM0) - Unsigned Pathologic: Stage Unknown - Unsigned documented as of this encounter (statuses as [...] Sign Reading Time Taken Comments Blood Pressure 100/72 10/24/2019 2:31 PM CDT Pulse 80 10/24/2019 2:31 PM CDT Temperature 36.2 C (97.1 F) 10/24/2019 2:31 PM CDT Respiratory Rate 17 10/24/2019 2:31 PM CDT Oxygen Saturation 98% 10/24/2019 2:31 PM CDT Inhaled Oxygen Concentration - - Weight 50.1 kg (110 lb 6.4 oz) 10/24/2019 2:31 PM CDT Height 160 cm (5' 3") 10/24/2019 2:31 PM CDT Body Mass Index 19.56 10/24/2019 2:31 PM CDT documented in this encounter Progress Notes Brianna Buckley MD - 10/24/2019 2:30 PM CDT Medical Oncology Clinic Note Patient: Latosha Wilkinson Age: [age] year old Attending: Brianna Buckley MD Date of Visit: October 24, 2019 Chief Complaint: Chief Complaint Patient presents with Cancer Cancer History: Cancer Staging Rectal adenocarcinoma Staging form: Colon and Rectum, AJCC 8th Edition - Clinical: Stage Unknown (cTX, cNX, cM0) - Unsigned - Pathologic: No stage assigned - Unsigned Oncology History Rectal adenocarcinoma 07/15/2019 Tumor Markers CEA 9.9 07/18/[address] chest /abdomen/pelvis Rectal fullness 2 mm Lung nodule mostly benign 07/26/2019 Initial Diagnosis Rectal adenocarcinoma 07/26/2019 Biopsy Colonoscopy and biopsy shows Invasive colon adenocarcinoma - outs anne marie pathology - no slides at this time Subjective C/o rectal Pain/bleeding HPI: Latosha Wilkinson is a 33 year old female who presents for follow up for Rectal cancer . She was awaiting funding to start treatment . She continues to have rectal pain. She states that she was started on Neurontin for ? sciatica in her legs . She reports abdominal pain, nausea/vomiting relived by defecation. Her bowel movements usually occurevery 2 days . PMH - Rectal Adenocarcinoma Past Surgical History: Procedure Laterality Date SECTION COLON SURGERY No Known Allergies Current Outpatient Medications Medication [...] Financial resource strain: Not on file Food insecurity Worry: Not on file Inability: Not on file Transportation needs Medical: Not on file Non-medical: Not on file Tobacco Use Smoking status: Current Every Day Smoker Years: 15.00 Types: Cigarettes Substance and Sexual Activity Alcohol use: Not Currently Drug use: Not Currently Types: Amphetamines Sexual activity: Yes Lifestyle Physical activity Days per week: Not on file Minutes per session: Not on file Stress: Not on file Relationships Social connections Talks on phone: Not on file Gets together: Not on file Attends voodoo service: Not on file Active member of club or organization: Not on file Attends meetings of clubs or organizations: Not on file Relationship status: Not on file Intimate partner violence Fear of current or ex partner: Not on file Emotionally abused: Not on file Physically abused: Not on file Forced sexual activity: Not on file Other Topics Concern Not on file Social History Narrative Not on file Family History Problem Relation Age of Onset Cancer Mother Cancer Maternal Grandmother OB History No obstetric history on file. Review of systems: Objective BP 100/72 | Pulse 80 | Temp 36.2 C (97.1 F) (Temporal Artery) | Resp 17 | Ht 5' 3" (1.6 m) | Wt 110 lb 6.4 oz (50.1 kg) | SpO2 98% | BMI 19.56 kg/m Review of Systems 10 point ROS negative except for that mentioned in HPI Physical examination: Performance status: ECOG 2 Physical Exam GEN: NAD Eyes: EOMI Mouth: Moist mucous membranes RS: clear breath sounds b/l CVS: s1 s2 normal, no M/R/G GI: soft, NT,ND, no apparent organomegaly, BS+ EXT: no C/C/E Neuro: cranial nerves 1 to 12 intact. Sensations: intact b/l Strength: intact and symmetric. Skin: no apparent rash Laboratory/Imaging: No visits with results within 1 Month(s) from this visit. Latest known visit with results is: Lab Requisition on 09/14/2019 Component Date Value Case Report 09/14/2019 Value:Surgical Pathology Outside Consult Case: [id number] Authorizing Provider: Brianna Buckley MD Collected: 09/14/2019 1139 Ordering Location: [facility] Received: 09/14/2019 1141 Laboratory Pathologist: Shweta Pelaez MD Specimens: A) - RECTUM, colon, rectum, biopsy B) - COLON, Colon, descending, poypectomy; Colon, rectum, biopsy Addendum 09/14/2019 Value:This result contains rich text formatting which cannot be displayed here. Final Diagnosis 09/14/2019 Value:This result contains rich text formatting which cannot be displayed here. Final Diagnosis Comment 09/14/2019 Value:This result contains rich text formatting which cannot be displayed here. Clinical Information 09/14/2019 Value:Clinical History: 33 year old female. Received on 09/14/2019, are six slides, consisting of two cases; from [employer] [employer] [address] [place] [address], [address], [place] [address]. PH# [phone]. . Two slides labeled '[id number]' (A1 lvl 1/. Col date: 07/26/2019). Four slides labeled '[id number]' (A1, B1 [lvl 1/2]. Col date: 07/14/2019). BRAF Mutation 09/14/2019 Negative KRAS Mutation 09/14/2019 Positive NRAS Mutation 09/14/2019 Negative Assessment Diagnosis: Rectal Adenocarcinoma Cancer Staging Rectal adenocarcinoma Staging form: Colon and Rectum, AJCC 8th Edition - Clinical: Stage Unknown (cTX, cNX, cM0) - Unsigned - Pathologic: No stage assigned - Unsigned Pending staging work up ? Stage I Last imaging/colonoscopy was in 08/02 which 2.5 cm rectal mass Case was discussed in GI tumor- await completion of funding prior to initiation of staging work up and treatment options Her case book was approved today /patient complied with submission of paper work Rectal pain/bleeding- secondary to underlying cancer Will need ct imaging to r/o Any partial obstruction. Plan Cbc/cmp/Iron studies and CEA level MRI pelvis /CT chest/abdomen/pelvis for staging work up and r/o obstruction Colorectal surgery evaluation for possible surgical evaluation- resection if stage I vs palliative colostomy for Advanced disease Rad Onc evaluation Consider neoadjuvant chemo if localized disease - IR for port placement Vs CHEMO RT or palliative chemo if advance Disease . # Supportive Care - Pain: not well controlled - Plan for Pain: Tylenol no 3 - Constipation: discussed patient can use OTC laxatives and stool softeners as needed. - Emotional Distress: none # Counseling counseled about staging work up # Code Status Full Code # Therapy Intent Curative Follow Up: Orders Placed This Encounter Procedures CT THORAX W CONTRAST CT ABDOMEN PELVIS W CONTRAST MR PELVIS W WO CONTRAST IR CENTRALLY INSERTED DEVICE TUNNELED CATHETER WITH PORT 5 OR OLDER CBC WITH DIFF COMP. METABOLIC PANEL (79772) CARCINOEMBRYONIC ANTIGEN BASIC METABOLIC PANEL (NA, K, CL, CO2, GLUCOSE, BUN, CREATININE, CA) PROTHROMBIN TIME / INR TOTAL IRON BINDING CAPACITY FERRITIN SERUM HEPATITIS B SURFACE ANTIGEN HCV ANTIBODY HEPATITIS B SURFACE ANTIBODY HEPATITIS B CORE ANTIBODY IGM HIV 1/2 AG-AB WITH REFLEX CONSULT/REFERRAL COLORECTAL SURGERY CONSULT RADIATION ONCOLOGY CONSULT/REFERRAL CANCER GENETICS RTC 4 weeks All of the patient's questions were answered to their satisfaction. They will return to clinic as above. Patient was seen and discussed with Medical Oncology Faculty Dr. Trent Buckley MD, Medical Oncology Fellow PG5 Dept of Hematology/Oncology, Pager: [phone] signed by Brianna Buckley MD at 10/24/2019 7:03 PM Karen Byrne - 10/24/2019 2:30 PM CDT Vitals: 10/24/19 1431 BP: 100/72 Pulse: 80 Resp: 17 Temp: 36.2 C (97.1 F) TempSrc: Temporal Artery SpO2: 98% Weight: 110 lb 6.4 oz (50.1 kg) Height: 5' 3" (1.6 m) Vitals taken and documented. Medication list and allergies unchanged per the patient. Awake, alert and oriented x3. Review of System: Constitutional: Negative for appetite change, chills and fever. HENT: Negative for congestion, mouth sores, nosebleeds, sore throat, trouble swallowing and voice change. Eyes: Negative for visual disturbances and or drainage from eyes Respiratory: Negative for chest pain, cough and or chest tightness. Cardiovascular: Negative for chest pain, palpitations and leg swelling. Gastrointestinal: Negative for abdominal distention, abdominal pain, +anal bleeding, blood in stool, constipation, diarrhea, nausea, rectal pain and vomiting. Genitourinary:+difficulty urinating and hematuria. Musculoskeletal: Negative for arthralgias and back pain. Skin: Negative for rash Neurological: AAOx3, Negative for headaches or disorientation, numbness or tingling Hematological: Negative for bruising and or bleeding documented in this encounter Plan of Treatment Date Type Specialty Care Team Description 11/10/2019 Appointment Radiology Brianna Buckley MD [address] [place] [address] [phone] 11/10/2019 Appointment Radiology Brianna Buckley MD [address] [place] [address] [phone] 11/10/2019 Appointment Radiology Brianna Buckley MD [address] [place] [address] [phone] Office Visit Oncology Brianna Buckley MD [address] [place] [address] [phone] Name Type Priority Associated Diagnoses Date/Ti me HIV 1/2 AG-AB WITH REFLEX LAB Add-on Rectal adenocar cinoma 10/24/2019 3:42 PM CDT Name Type Priority Associated Diagnoses Order S chedule CT THORAX W CONTRAST IMAGING MARY Rectal adenocarcinom a Expected: 10/24/2019, Expires: 2020 CT ABDOMEN PELVIS W IMAGING MARY Rectal adenocarcinoma Expected: 10/24/2019, CONTRAST Expires: 2020 MR PELVIS W WO CONTRAST IMAGING MARY Rectal adenocarci noma Expected: 10/24/2019, Expires: 2020 IR CENTRALLY INSERTED IMAGING MARY Rectal adenocarcino ma Expected: 10/24/2019, DEVICE TUNNELED CATHETER Exp ires: 10/23/2020 WITH PORT 5 OR OLDER HEPATITIS B CORE LAB Routine Rectal adenocarcinoma Ex pected: 10/24/2019, ANTIBODY IGM Expires: 2020 HIV 1/2 AG-AB WITH LAB Add-on Rectal adenocarcinoma Expected: 10/24/2019, REFLEX Expires: 2020 Health Maintenance Due Date Last Done Comments VARICELLA VACCINES (1 of 2 - 2-dose childhood series) 11/13/1984 PNEUMOCOCCAL 0-64 YEARS COMBINED SERIES (1 of 3 - 11/13/1989 PCV13) DTaP,Tdap,and Td Vaccines (1 - Tdap) 11/13/2002 PAP SMEAR 11/13/2004 INFLUENZA VACCINE (#1) 2019 Depression Screening 08/22/2020 08/23/2019 documented as of this encounter Results HEPATITIS B SURFACE ANTIBODY (10/24/2019 3:42 PM CDT) Pathologist Sig nature HBsAB Negative [facility] HBsAb 0.00 mIU/mL [facility] Semi-Quantitative SERVICES Specimen Blood - ARM, LEFT Narrative Performed At Interpretation: Hepatitis B Surface An tibody [facility] Negative - Patient is considered to be not immu ne to infection with HBV. Positive - Anti-HBs detected at greater than or equal to 12 mIU/mL. Patient is considered to be immune to infection with HBV. Performing Organization Address City/[facility]/Zipcode Phone Number [facility] CLIA: [id number] [place] [address] [address] [facility] HCV ANTIBODY (10/24/2019 3:42 PM CDT) Pathologist Sig nature HCV Ab Negative [facility] HCV Semi-Quantitative 0.01 [facility] Specimen Blood - ARM, LEFT Performing Organization Address City/State/Zipcode Phone Number [facility] CLIA: [id number] [place], [place] [id number] [facility] HEPATITIS B SURFACE ANTIGEN (10/24/2019 3:42 PM CDT) Pathologist Sig nature HBsAg Negative Negative [facility] HBsAg 0.10 [facility] Semi-Quantitative SERVICES Specimen Blood - ARM, LEFT Performing Organization Address City/[facility] CLIA: [id number] [place] [address] [address] [facility] FERRITIN SERUM (10/24/2019 3:42 PM CDT) Pathologist Sig nature FERRITIN 8.3 6.0 - 137.0 ng/mL [facility] S Specimen Blood - ARM, LEFT Narrative Performed At Biotin has been reported to cause a negative bias, int erpret [facility] results relative to patient's use of biotin. Performing Organization Address City/[facility] Phone Number [facility] CLIA: [id number] [place] [address] [place] [address] TOTAL IRON BINDING CAPACITY (10/24/2019 3:42 PM CDT) Pathologist Sig nature TIBC 333 250 - 410 ug/dL [facility] Specimen Blood - ARM, LEFT Performing Organization Address City/[facility] Phone Number [facility] CLIA: [id number] [place] [address] [place] [address] PROTHROMBIN TIME / INR (10/24/2019 3:42 PM CDT) PROTIME PATIENT 12.0 10.1 - 12.6 [facility] Seconds SERVICES INR 1.1Comment: Normal [facility] INR <1.1; Warfarin SERVICES Therapeutic range 2.0 to 3.0 or 2.5 to 3.5, depending upon the indications. Specimen Blood - ARM, LEFT Performing Organization Address [facility] Phone Number [facility] CLIA: [id number] [place] [address] [place] [address] CARCINOEMBRYONIC ANTIGEN (10/24/2019 3:42 PM CDT) Pathologist Sig nature CEA 33.2 (H) 0.0 - 10.0 ng/mL [facility] Specimen Blood - ARM, LEFT Narrative Performed At CEA Ranges: [facility] Non-Smokers 0-5.0 ng/mL Smokers 0-10.0 ng/mL Performing Organization Address City/[facility] Phone Number [facility] CLIA: [id number] [place] [address] [phone] 301 [facility] COMP. METABOLIC PANEL (82075) (10/24/2019 3:42 PM CDT) Pathologist Sig nature NA 140 135 - 145 mmol/L [facility] K 3.8 3.5 - 5.0 mmol/L [facility] CL 101 98 - 108 mmol/L [facility] CO2 TOTAL 29 23 - 31 mmol/L [facility] AGAP 10 2 - 16 [facility] BUN 13 7 - 23 mg/dL [facility] GLUCOSE 70 70 - 110 mg/dL [facility] CREATININE 0.63 0.50 - 1.04 [facility] mg/dL SERVICES TOTAL BILI 0.3 0.1 - 1.1 mg/dL [facility] CALCIUM 10.0 8.6 - 10.6 mg/dL [facility] T PROTEIN 7.6 6.3 - 8.2 g/dL [facility] ALBUMIN 4.6 3.5 - 5.0 g/dL [facility] ALK PHOS 52 34 - 122 U/L [facility] ALTv 8 5 - 35 U/L [facility] AST(SGOT) 17 13 - 40 U/L [facility] eGFR Calculation 107.5 mL/min/1.73m2 [facility] (Non-) SERVICES eGFR Calculation 130.3 mL/min/1.73m2 [facility] () SERVICES Specimen Blood - ARM, LEFT Narrative Performed At Association of Glomerular Filtration Rate (GFR) and St aging [facility] of Kidney Disease* + + +------- ------ + | GFR (mL/min/1.73 m2) | With Kidney Damage | Wi thout Kidney Damage + + +------- ------ + | >90 | Stage one | Normal + + +------- ------ + | 60-89 | Stage two | Decreased GFR + + +------- ------ + | 30-59 | Stage three | Stage three + + +------- ------ + | 15-29 | Stage four | Stage four + + +------- ------ + | <15 (or dialysis) | Stage five | Stage five + + +------- ------ + *Each stage assumes the associated GFR level has been in effect for at least three months. Stages 1 to 5, wit h or without kidney disease, indicate chronic kidney disease. Notes: Determination of stages one and two (with eGFR >59mL/min/1.73 m2) requires estimation of kidney damag e for at least three months as defined by structural or func tional abnormalities of the kidney, manifested by either: Pathological abnormalities or Markers of kidney damage (including abnormalities in the composition of the blo od or urine or abnormalities in imaging tests) . Performing Organization Address City/State/Zipcode Phone Number [facility] CLIA: [id number] [facility] [place] [address] [place] [address] CBC WITH DIFF (10/24/2019 3:42 PM CDT) Pathologist [facility] nature WBC 17.00 (H) 4.30 - 11.10 [facility] 10*3/L SERVICES RBC 4.92 3.93 - 5.25 [facility] 10*6/L SERVICES HGB 14.1 11.6 - 15.0 [facility] g/dL SERVICES HCT 43.2 35.7 - 45.2 % [facility] MCV 87.8 80.6 - 95.5 fL [facility] MCH 28.7 25.9 - 32.8 pg [facility] MCHC 32.6 31.6 - 35.1 [facility] g/dL SERVICES RDW-SD 43.9 39.0 - 49.9 fL [facility] RDW-CV 13.7 12.0 - 15.5 % [facility] PLT 475 (H) 166 - 358 [facility] 10*3/L SERVICES MPV 9.8 9.5 - 12.9 fL [facility] NRBC/100 WBC 0.0 0.0 - 10.0 /100 [facility] WBCs SERVICES NRBC x10^3 <0.01 10*3/L [facility] GRAN MAT (NEUT) % 54.1 % [facility] IMM GRAN % 0.50 % [facility] LYMPH % 36.2 % [facility] MONO % 7.5 % [facility] EOS % 1.2 % [facility] BASO % 0.5 % [facility] GRAN MAT x10^3(ANC) 9.20 (H) 1.88 - 7.09 [facility] 10*3/uL SERVICES IMM GRAN x10^3 0.09 (H) 0.00 - 0.06 [facility] 10*3/uL SERVICES LYMPH x10^3 6.16 (H) 1.32 - 3.29 [facility] 10*3/uL SERVICES MONO x10^3 1.27 (H) 0.33 - 0.92 [facility] 10*3/uL SERVICES EOS x10^3 0.20 0.03 - 0.39 [facility] 10*3/uL SERVICES BASO x10^3 0.08 (H) 0.01 - 0.07 [facility] 10*3/uL SERVICES Specimen Blood - ARM, LEFT Performing Organization Address City/State/Zipcode Phone Number [facility] CLIA: [id number] [place] [address] [place] [address] documented in this encounter Visit Diagnoses Diagnosis Rectal adenocarcinoma - Primary Malignant neoplasm of rectum documented in this encounter Insurance Payer Benefit Plan / Subscriber ID Effective Dates Phone Addre ss Type Group [facility] [id number] 2019- [address] [place] [address] [employer]book [employer] [address] [place] [address] documented as of this encounter
--- OUTSIDE RECORDS SUMMARY | 2019-11-10 14:40 | XMS REPORT | Continuity of Care Document ---
:1985 Author Organization [facility] t Address [address] [place] [address] Care Team Providers Name Role Phone Marcio BELLAMY Attending Clinician Pietro BELLAMY, Josué Attending Clinician Problems This patient has no known problems. Allergies, Adverse Reactions, Alerts This patient has no known allergies or adverse reactions. Medications This patient has no known medications. Procedures This patient has no known procedures. Encounters Start End Encounter Admission Attending Care Care Encounter Source Date/Time Date/Time Type Type Clinicians Facility Department ID 2019-11-08 2019-11-08 [facility] [id number] 10:39:48 23:59:00 Encounter Brianna Boston [id number] [place] [id number] [place] [id number] 2019-10-31 2019-10-31 [facility] [id number] 09:56:42 23:59:00 Encounter Brianna BERKLEY [id number] [facility] [id number] 2019-10-27 2019-10-27 Office Pietro MNJACOBY [id number] 14:13:13 23:00:04 Visit [facility] [id number] Josué Cancer [id number] [facility] [phone] MDA 408 Results This patient has no known results.
--- OUTSIDE RECORDS SUMMARY | 2019-11-10 14:40 | XMS REPORT | Summary of Care ---
:1985 Author Organization [facility] Address [address] [place] [address] Care Team Providers Name Role Phone Pcp, Patient Does Not Have A Primary Care Provider +1-000-00 0-0000 Reason for Visit Reason Comments Forms Encounter Details Date Type Department Care Team Description 09/20/2019 Telephone [facility] Brianna Buckley MD Forms Hematology-Oncology - [address] [place] [phone] [facility] [phone] [facility], [phone] ( Fax) [address].105 [place] [address] Allergies No Known Allergiesdocumented as of this encounter (statuses as of 09/20/2019) Medications Medication Sig Dispensed Refills Start Date End Date Status BENEFRAMONITA, WHEAT Take by mouth. 0 Active DEXTRIN, Indications: OTC ORALIndications: OTC SUPPLEMENT SUPPLEMENT documented as of this encounter (statuses as of 09/20/2019) Active Problems Problem Noted Date Rectal adenocarcinoma 08/23/2019 documented as of this encounter (statuses as of 09/20/2019) Social History Tobacco Use Types Packs/Day Years [...] 10/03/2019 Office Visit Oncology Brianna Buckley MD [address] [place] [address] [phone] Health Maintenance Due Date Last Done Comments VARICELLA VACCINES (1 of 2 - 2-dose childhood series) 11/13/1984 PNEUMOCOCCAL 0-64 YEARS COMBINED SERIES (1 of 3 - 11/13/1989 PCV13) DTaP,Tdap,and Td Vaccines (1 - Tdap) 11/13/1994 PAP SMEAR 11/13/2004 INFLUENZA VACCINE (#1) 2019 Depression Screening 08/22/2020 08/23/2019 documented as of this encounter Results Not on filedocumented in this encounter
--- OUTSIDE RECORDS SUMMARY | 2019-11-10 14:40 | XMS REPORT | Summary of Care ---
:1985 Author Organization [facility] - Health Address [address] [place] [address] Care Team Providers Name Role Phone Pcp, Patient Does Not Have A Primary Care Provider +1-000-00 0-0000 Encounter Details Date Type Department Care Team Description 10/14/2019 Orders Only [facility] Doctor Unassigned, No [address] [facility] [place] [address] [address] [place] [address] Allergies No Known Allergiesdocumented as of this encounter (statuses as of 10/14/2019) Medications Medication Sig Dispensed Refills Start Date End Date Status BENEFIBER, WHEAT Take by mouth. 0 Active DEXTRIN, Indications: OTC ORALIndications: OTC SUPPLEMENT SUPPLEMENT documented as of this encounter (statuses as of 10/14/2019) Active Problems Problem Noted Date Rectal adenocarcinoma 08/23/2019 documented as of this encounter (statuses as of 10/14/2019) Social History Tobacco Use Types Packs/Day Years Used Date Current Every Day Smoker Cigarettes 15 Alcohol Use Drinks/Week oz/Week Comments Not Currently Sex Assigned at Date Recorded Not on file Job Start Date Occupation Industry Not on file Not on file Not on file Travel History Travel Start Travel End No recent travel history available. documented as of this encounter Last Filed Vital Signs Not on filedocumented in this encounter Plan of Treatment Date Type Specialty Care Team Description 10/24/2019 Office Visit Oncology Brianna Buckley MD [address] [place] [address] [phone] Health Maintenance Due Date Last Done Comments VARICELLA VACCINES (1 of 2 - 2-dose childhood series) 11/13/1984 PNEUMOCOCCAL 0-64 YEARS COMBINED SERIES (1 of 3 - 11/13/1989 PCV13) DTaP,Tdap,and Td Vaccines (1 - Tdap) 11/13/1994 PAP SMEAR 11/13/2004 INFLUENZA VACCINE (#1) 2019 Depression Screening 08/22/2020 08/23/2019 documented as of this encounter Procedures Procedure Name Priority Date/Time Associated Diagnosis Comme nts SCANNED LAB RESULTS Routine 10/14/2019 12:01 AM CDT documented in this encounter Results SCANNED LAB RESULTS (10/14/2019 12:01 AM CDT) Specimen Performing Organization Address City/State/Zipcode Phone Number HIM documented in this encounter
--- OUTSIDE RECORDS SUMMARY | 2019-11-10 14:40 | XMS REPORT | Summary of Care ---
:1985 Author Organization [facility] Address [address] [place] [address] Care Team Providers Name Role Phone Pcp, Patient Does Not Have A Primary Care Provider +1-000-00 0-0000 Reason for Visit Reason Comments Assessment Encounter Details Date Type Department Care Team Description 10/17/2019 Telephone [facility] Brianna Buckley MD Assessment Hematology-Oncology - [address] [place] [phone] 100 [facility] [phone] [facility], [address] [phone] ( Fax) 1.684 [place] [address] Allergies No Known Allergiesdocumented as of this encounter (statuses as of 10/17/2019) Medications Medication Sig Dispensed Refills Start Date End Date Status BENEFRAMONITA WHEAT Take by mouth. 0 Active DEXTRIN, [...] this encounter Miscellaneous Notes Telephone Encounter - Brianna Buckley MD - 10/17/2019 11:54 AM CDTShe can to urgent care or PCP For further eval- possible DVT study and a UA elephone Encounter - Joy Berkowitz RN - 10/17/2019 [...] something for pain or go to ER. Telephone Encounter - Araceli Pascual - 10/17/2019 9:45 AM CDTPatient called stating she is having severe leg [...] 10/24/2019 Office Visit Oncology Brianna Buckley MD [address] [place] [address] [phone] Health Maintenance Due Date Last [...]
--- OUTSIDE RECORDS SUMMARY | 2019-11-10 14:40 | XMS REPORT | Summary of Care ---
:1985 Author Organization [facility] Address [address] [place] [address] Care Team Providers Name Role Phone Pcp, Patient Does Not Have A Primary Care Provider +1-000-00 0-0000 Reason for Visit Reason Comments Assessment Notification Encounter Details Date Type Department Care Team Description 10/17/2019 Telephone [facility] Brianna Buckley MD Assessment; Hematology-Oncology - [address] [place] [address] [place], [place] [address] [place] [phone] [place] [phone] [address] [place] [address] Allergies No Known Allergiesdocumented as [...] this encounter Miscellaneous Notes Telephone Encounter - Allyssa Asif - 10/18/2019 3:27 [...] 10/24/2019 Office Visit Oncology Brianna Buckley MD [address] [place] [address] [phone] Health Maintenance Due Date Last [...]
--- OUTSIDE RECORDS SUMMARY | 2019-11-10 14:40 | XMS REPORT | Summary of Care ---
:1985 Author Organization [address] [address] Care Team Providers Name Role Phone Pcp, Patient Does Not Have A Primary Care Provider +1-000-00 0-0000 Reason for Visit Reason Comments Forms Encounter Details Date Type Department Care Team Description 09/20/2019 Patient Outreach [facility] Marti Leblanc [facility] Hematology-Oncology [address] [place] [address] [address] [place] [phone] Allergies No Known Allergiesdocumented as of this encounter (statuses as of 09/26/2019) Medications Medication Sig Dispensed Refills Start Date End Date Status BENEFRAMONITA, WHEAT Take by mouth. 0 Active DEXTRIN, Indications: OTC ORALIndications: OTC SUPPLEMENT SUPPLEMENT documented as of this encounter (statuses as of 09/26/2019) Active Problems Problem Noted Date Rectal adenocarcinoma 08/23/2019 documented as of this encounter (statuses as of 09/26/2019) Social History Tobacco Use Types Packs/Day Years [...] in this encounter Progress Notes Marti Leblanc [facility] - 09/20/2019 11:59 PM CDTSW Note: SW received an email requesting patient be sent another casebook application. Pt moved recently and misplaced previous one. SW emailed one to the patient and sent one via postal mail. GUSTAVO will remain available PRChristopher Leblanc LMSW Director Of Field Coordination documented in this encounter Plan of Treatment Date Type Specialty Care Team Description 10/03/2019 Office Visit Oncology Brianna Buckley MD [address] [place] [address] [phone] Health Maintenance Due Date Last [...]
--- OUTSIDE RECORDS SUMMARY | 2019-11-10 14:40 | XMS REPORT | Summary of Care ---
:1985 Author Organization [facility] Address [address] [place] [address] Care Team Providers Name Role Phone Pcp, Patient Does Not Have A Primary Care Provider +1-000-00 0-0000 Reason for Visit Reason Comments Assessment Encounter Details Date Type Department Care Team Description 10/17/2019 Telephone [facility] rBianna Buckley MD Assessment Hematology-Oncology - [address] [place] [phone] 1006 [facility] [phone] [facility], [phone] ( Fax) [address]813 [place] [address] Allergies No Known Allergiesdocumented [...] 10/24/2019 Office Visit Oncology Brianna Buckley MD [address] [place] [address] [phone] Health Maintenance Due Date Last [...]
--- OUTSIDE RECORDS SUMMARY | 2019-11-10 14:40 | XMS REPORT | Summary of Care ---
:1985 Author Organization [facility] Address [address] [place] [address] Care Team Providers Name Role Phone Pcp, Patient Does Not Have A Primary Care Provider +1-000-00 0-0000 Reason for Visit Reason Comments Treatment Encounter Details Date Type Department Care Team Description 08/24/2019 Case Management [facility] Brianna Buckley MD Treatment Hematology-Oncology - [address] [place] [address] 1005 [facility] [phone] [facility] [place] [phone] [address] [place] [address] Allergies No Known Allergiesdocumented [...] filedocumented in this encounter Plan of Treatment Health [...]
--- OUTSIDE RECORDS SUMMARY | 2019-11-10 14:41 | XMS REPORT | Summary of Care ---
:1985 Author Organization [facility] Address [address] [place] [address] Care Team Providers Name Role Phone Pcp, Patient Does Not Have A Primary Care Provider +1-000-00 0-0000 Reason for Referral (STAT) Status Reason Specialty Diagnoses / Referred By Referred To Procedures Contact Contact New Request Radiation Diagnoses Rectal adenocarcinoma Arnaldo Westbrook Therapy Procedures CONSULT RADIATION ONCOLOGY CONSULT RADIATION ONCOLOGY MD Josué [address] [place] [address] [place] [address] Reason for Visit Reason Comments Referral/consult Rectal Adenocarcinoma (MARY) Status Reason Specialty Diagnoses / Referred By Referred To Procedures Contact Contact Closed CRS-COLON & RECTAL Diagnoses Rectal adenocarcinoma Brianna Buckley Walker, John SURGERY / Procedures CONSULT/REFERRAL COLORECTAL SURGERY MD Josué MD Colorectal Surgery [address] [place] [address] [place] [phone] Phone: Encounter Details Date Type Department Care Team Description 10/27/2019 Office Visit [facility] Arnaldo Westbrook Rectal ad enocarcinoma Center-Colorectal MD Josué (Primary Dx) Surgery [address] [place] [address] [facility] [address], [address] [place] [address] [place], [place] [phone] [phone] Allergies No Known Allergiesdocumented as of this encounter (statuses as of 10/27/2019) Medications Medication Sig Dispensed Refills Start Date End Date Status BENEFIBER, WHEAT Take by mouth. 0 Active DEXTRIN, Indications: OTC ORALIndications: OTC SUPPLEMENT SUPPLEMENT acetaminophen-codein TAKE 1 TABLET BY 0 10/17/2019 Active e 300-30 mg tablet MOUTH EVERY 6 HOURS NEEDED FOR PAIN documented as of this encounter (statuses as of 10/27/2019) Active Problems Problem Noted Date Sciatica of left side 10/27/2019 Rectal adenocarcinoma 08/23/2019 Cancer Staging: Clinical: Stage Unknown (cTX, cNX, cM0) - Unsigned Pathologic: Stage Unknown - Unsigned documented as of this encounter (statuses as of 10/27/2019) Social History Tobacco Use Types Packs/Day Years Used Date Current Every Day Smoker Cigarettes 15 Smokeless Tobacco: Never Used Alcohol Use Drinks/Week oz/Week Comments Not Currently Sex Assigned at Date Recorded Not on file COVID-19 Exposure Response Date Recorded In the last month, have you been in contact with No / Unsure 10/25/2019 6:39 PM CDT someone who was confirmed or suspected to have Coronavirus / COVID-19? documented as of this encounter Last Filed Vital Signs Vital Sign Reading Time Taken Comments Blood Pressure 100/65 10/27/2019 2:31 PM CDT Pulse 96 10/27/2019 2:31 PM CDT Temperature 37.1 C (98.7 F) 10/27/2019 2:31 PM CDT Respiratory Rate - - Oxygen Saturation 97% 10/27/2019 2:31 PM CDT Inhaled Oxygen Concentration - - Weight 49.1 kg (108 lb 4.8 oz) 10/27/2019 2:31 PM CDT Height 160 cm (5' 3") 10/27/2019 2:31 PM CDT Body Mass Index 19.18 10/27/2019 2:31 PM CDT documented in this encounter H&P Notes Jarad Whiting MD - 10/27/2019 2:30 PM CDT General Surgery Clinic Note Date of Service: 10/27/2019 Chief Complaint: Referral/consult (Rectal Adenocarcinoma) SUBJECTIVE/HPI: Latosha Wilkinson is a 33 year old female with rectal adenocarcinoma diagnosed at outside hospital presenting for workup and staging of cancer. The patient initially states that she had changes in her bowel habits and blood in her stools in June/July of this year, about 4-5 months ago. She also reports weight loss of >30 lbs over a period of 1 month. Other symptoms include nausea/vomiting that is relieved by bowel movements, denies hematemesis. For the past week she has been having vaginal discharge that she states looks like blood tinged mucous and feces, however she states it is "difficult to tell because of my period." She was seen at OSH for colonoscopy and biopsy found to have a rectal adenocarcinoma, KRAS +, circumfirential and measuring 2 cm at the anal verge. Her workup has since been delayed due to COVID restrictions, but has since seen Dr. Silva and Dr. Newman with medical oncology. She is currently planned for MRIof the abdomen for staging, CT a/p and thorax for metastatic workup, and IR placement of hemaport. Patient reports that her mother has a history of breast cancer around age 35-40 and was found to have a mutation in the BRITTON gene. Medications Current Outpatient Medications Medication Sig Dispense Refill acetaminophen-codeine 300-30 mg tablet TAKE 1 TABLET BY MOUTH EVERY 6 HOURS NEEDED FOR PAIN BENEFIBER, WHEAT DEXTRIN, ORAL Take by mouth. Indications: OTC SUPPLEMENT No current facility-administered medications for this visit. Past Medical History: Sciatica, Left side, currently treated with gabapentin. Past Surgical History: Past Surgical History: Procedure Laterality Date SECTION COLON SURGERY Allergies: No Known Allergies Social History: Current every day smoker, 1ppd x 20 years Former alcohol and methamphetamine use, sober x2.5 years. Social History Socioeconomic History Marital status: Single [...] Every Day Smoker Years: 15.00 Types: Cigarettes Smokeless tobacco: Never Used Substance and Sexual Activity Alcohol use: Not Currently Drug use: Not Currently Types: Amphetamines Sexual activity: Yes Lifestyle Physical activity Days per week: Not on file Minutes per session: Not on file Stress: Not on file Relationships Social connections Talks on phone: Not on file Gets together: Not on file Attends hindu service: Not on file Active member of [...] file Social History Narrative Not on file REVIEW OF SYSTEMS: BOLDED if positive, otherwise negative Constitutional: fevers, chills, unintentional weight loss HEENT: changes in vision, headaches, changes in hearing, congestion, sore throat Cardiovascular: chest pain, palpitations Respiratory: cough, shortness of breath Gastrointestinal: nausea, vomiting, diarrhea, tenesmus, bright red blood per rectum, change in stoolcalibur Genitourinary: negative for dysuria, hematuria, dyspareunia, vaginal discharge Musculoskeletal: negative for joint swelling or pain Skin: negative for rashes or lesions Psych: negative for depression, anxiety Endocrine: negative for polyuria, polydipsia, cold/heat intolerance Hem/Lymph: negative for bleeding disorder PHYSICAL EXAM BP 100/65 (BP Location: Left arm, Patient Position: Sitting, BP CUFF SIZE: Adult Medium) | Pulse 96 | Temp 37.1 C (98.7 F) (Oral) | Ht 1.6 m (5' 3") | Wt 49.1 kg (108 lb 4.8 oz) | LMP 10/25/2019 (Exact Date) | SpO2 97% | BMI 19.18 kg/m General: alert and oriented, appears thin, in mild emotional distress Psych: normal mood and affect, slightly anxious, judgement intact Eyes: extraocular movements intact, no scleral icterus HENT: normocephalic, atraumatic, no rhinorrhea, moist mucous membranes Resp: unlabored, no increased work of breathing, equal bilateral chest rise Abdomen: soft, non-tender, non-distended, scaphoid Rectal: tumor palpable on anterior wall of rectum on exam. Normal external anal exam. Tender to palpation. Circumfirential tumor at anal verge, somewhat fixed. LABORATORY: CBC WBC (10*3/L) Date Value 10/24/2019 17.00 (H) RBC (10*6/L) Date Value 10/24/2019 4.92 PLT (10*3/L) Date Value 10/24/2019 475 (H) HGB (g/dL) Date Value 10/24/2019 14.1 HCT (%) Date Value 10/24/2019 43.2 BMP NA (mmol/L) Date Value 10/24/2019 140 K (mmol/L) Date Value 10/24/2019 3.8 CALCIUM (mg/dL) Date Value 10/24/2019 10.0 CL (mmol/L) Date Value 10/24/2019 101 BUN (mg/dL) Date Value 10/24/2019 13 CREATININE (mg/dL) Date Value 10/24/2019 0.63 GLUCOSE (mg/dL) Date Value 10/24/2019 70 CO2 TOTAL (mmol/L) Date Value 10/24/2019 29 10/24/2019: CEA: 33.2 PATHOLOGY: RECEIVED TWO OUTSIDE SLIDES LABELED "[id number]" (COLLECTED ON 07/26/2019) AND DESIGNATED : A. RECTAL COLON, MASS, BIOPSY: - ADENOCARCINOMA, MODERATELY DIFFERENTIATED, ARISING IN TUBULOVILLOUS ADENOMA RECEIVED FOUR OUTSIDE SLIDES LABELED "[id number]" (COLLECTED ON 07/14/2019) AND DESIGNATED : A. COLON, DESCENDING, POLYPECTOMY: - TUBULAR ADENOMA - NO HIGH GRADE DYSPLASIA IDENTIFIED B. RECTUM, MASS, BIOPSY: - SUPERFICIAL FRAGMENTS OF TUBULOVILLOUS ADENOMA Addendum No change in final diagnosis. This addendum is issued to report the MSI result. Molecular study for KRAS/BRAF/NRAS has been ordered for the block A1 and the result will be issued in [facility] separately. These areresults of microsatellite instability (MSI) by immunohistochemistry (IHC). The immunostain form MSI was performed on the outside block A1 at [facility] with appropriate controls andshow the following results: MLH 1Positive nuclear staining [id number] nuclear staining [id number] nuclear staining [id number] nuclear staining Interpretation of MSI phenotype by IHC result: Microsatellite stable Clinical Significance of Staining Patterns: Pattern: MLH1: PMS2: MSH2: MSH6: MSI Clinical Etiology 1 + + + + TAWANA or MSI-L Sporadic 2 - - + + MSI-H Knight syndrome or sporadic Carcinoma Germline hMLH1 mutation of promoter hyper-methylation 3 + + - - MSI-H Knight Germline hMSH2 mutation 4 + + + - MSI-H Knight Germline hMSH6 mutation 5 + - + + MSI-H Knihgt Germline PMS2 mutation TAWANA microsatellite stable, MSI L or H: microsatellite instable probability low or high References: 1. Colorectal cancer due to deficiency in DNA mismatch repair function. Adv Marlene Pathol 16(6): 405-417, 2009. 2. DNA mismatch repair deficiency in sporadic colorectal cancer and Knight syndrome. Histopathology 56: 167-179, 2010. MICROBIOLOGY: There are no current results on file for these tests and/or test for 1 year.QUANTATIVE CULTURE There are no current results on file for these tests and/or test for 1 year.wound culture RADIOLOGY Radiology reports from outside hospital not available, include colonoscopy x2, MRI, CT. Procedure Note Rectal exam performed ASSESSMENT/PLAN Latosha Wilkinson is a 33 year old female with a past medical history of rectal adenocarcinoma diagnosedat outside hospital presenting for staging and plan for treatment. The patient is unfortunately self-pay and has had workup delayed due to the COVID 19 pandemic restrictions. Based one examination, the patient has a locally advanced tumor with no evidence of metastatic disease and would benefit fromrapid initiation of neoadjuvant chemotherapy and radiotherapy. Extensive discussion was had with the patient about the plan for upcoming treatment including the logistics and side effects of radiation therapy, the possibility of chemotherapy and side-effects, eventual need for surgery and the dependence of options on the final staging of the cancer and the extentof prior neoadjuvant therapy damage to other tissues and the extent of response to therapy. -Follow up with Dr. Quinones and Dr. Silva for medical oncology plan -Tumor board 11/02/2019 -MRI moved up to 11/01/2019 -Referral placed to radiation therapy -Follow up with Dr. Westbrook in 1 month. 10/27/2019 Jarad Whiting MD. PGY-1 [facility] Surgery Service Pager: [phone] Ano - Rectal adenocarcinoma. Needs neoadjuvant after pelvic MRI. I have discussed this with Ms Wilkinson and agree with the note by Dr Whiting. JPW documented in this encounter Plan of Treatment Date Type Specialty Care Team Description 10/31/2019 Appointment Brianna Barnett MD [address] [place] [address] [phone] 11/01/2019 Appointment Brianna Barnett MD [address] [place] [address] [phone] 11/10/2019 Appointment Brianna Barnett MD [address] [place] [address] [phone] 11/10/2019 Appointment Radiology Brianna Buckley MD [address] [place] [address] [phone] Office Visit Oncology Brianan Buckley MD [address] [place] [address] [phone] 11/24/2019 Office Visit Colorectal Surgery Arnaldo Westbrook MD [address] [place], [place] [address] 15 Health Maintenance Due Date Last Done Comments [...] Effective Dates Phone Addre ss Type Group [facility] [phone] 2019- [address] [place] [address] Casebook [employer] [address] [place] [address] documented as of this encounter
--- OUTSIDE RECORDS SUMMARY | 2019-11-10 14:41 | XMS REPORT | Summary of Care ---
:1985 Author Organization [facility] Address [address] [place] [id number] Care Team Providers Name Role Phone Pcp, Patient Does Not Have A Primary Care Provider +[id number] Reason for Referral Radiology Services (MARY) Status Reason Specialty Diagnoses / Referred By Referred To Procedures Contact Contact Closed Diagnostic Diagnoses Rectal adenocarcinoma Brianna Buckley, Radiology Procedures IR CENTRALLY INSERTED DEVICE TUNNELED CATHETER WITH PORT 5 OR OLDER IR VENOUS ACCESS [address] [place] [phone] Reason for Visit Radiology Services (MARY) Status Reason Specialty Diagnoses / Referred By Referred To Procedures Contact Contact Closed Diagnostic Diagnoses Rectal adenocarcinoma Brianna Buckley, Radiology Procedures IR CENTRALLY INSERTED DEVICE TUNNELED CATHETER WITH PORT 5 OR OLDER IR VENOUS ACCESS [address] [place] [phone] Encounter Details Date Type Department Care Team Description 10/31/2019 Hospital Encounter [facility] Byrd MD Arrived Interventional Radio logy [address] [place] [address] [place], [place] [phone] Allergies No Known Allergiesdocumented as of this encounter (statuses as of 11/01/2019) Medications Medication Sig Dispensed Refills Start Date End Date Status BENEFIBER, WHEAT Take by mouth. 0 Active DEXTRIN, Indications: OTC ORALIndications: OTC SUPPLEMENT SUPPLEMENT acetaminophen-codeine TAKE 1 TABLET BY 0 10/17/2019 Active 300-30 mg tablet MOUTH EVERY 6 HOURS NEEDED FOR PAIN ciprofloxacin HCl 500 Take 1 tablet by 14 tablet 0 10/31/2019 11/07/2019 Active mg tablet mouth every 12 (twelve) hours for 7 days. documented as of this encounter (statuses as of 11/01/2019) Active Problems Problem Noted Date Sciatica of left side 10/27/2019 Rectal adenocarcinoma 08/23/2019 Cancer Staging: Clinical: Stage Unknown (cTX, cNX, cM0) - Unsigned Pathologic: Stage Unknown - Unsigned documented as of this encounter (statuses as of 11/01/2019) Social History Tobacco Use Types Packs/Day Years Used Date Current Every Day Smoker Cigarettes 15 Smokeless Tobacco: Never Used Alcohol Use Drinks/Week oz/Week Comments Not Currently Sex Assigned at Date Recorded Not on file COVID-19 Exposure Response Date Recorded In the last month, have you been in contact with No / Unsure 10/31/2019 9:55 AM CDT someone who was confirmed or suspected to have Coronavirus / COVID-19? documented as of this encounter Last Filed Vital Signs Vital Sign Reading Time Taken Comments Blood Pressure 120/80 10/31/2019 1:00 PM CDT Pulse 61 10/31/2019 1:00 PM CDT Temperature 36.5 C (97.7 F) 10/31/2019 10:17 AM CDT Respiratory Rate 16 10/31/2019 12:20 PM CDT Oxygen Saturation 98% 10/31/2019 1:00 PM CDT Inhaled Oxygen Concentration - - Weight 49 kg (108 lb) 10/31/2019 10:17 AM CDT Height 160 cm (5' 3") 10/31/2019 10:17 AM CDT Body Mass Index 19.13 10/31/2019 10:17 AM CDT documented in this encounter Discharge Instructions Ava Witt RN - 10/31/2019 Patient Discharge Instructions Follow instructions as indicated below: Today you had a procedure in the radiology department. We want to make sure that you have the information that you need to care for yourself after you go home. The nurse has explained the things that you need to do and has indicated the instruction that apply to your procedure below. General You received sedation-do not drive, operate machinery or make important decisions for the next 24hours. Resume diet and Medications Increase fluid intake over the next 24 hours. No heavy lifting (more than 5 pounds) or strenuous exercise for the next 24 hours. Avoid aspirin or aspirin containing products for 24 hours. Unless directed by your doctor, use non-aspirin pain relievers. Watch for signs and symptoms of infection (chills, fever of 101F, drainage, redness, edema, swelling). Diet Instructions: regular Take Home Medications: These are medications ordered for you by your healthcare provider. Do not take any other medicationsor supplements unless advised by your healthcare provider. Patient's Medications START taking these medications CIPROFLOXACIN HCL 500 MG TABLET Take 1 tablet by mouth every 12 (twelve) hours for 7 days. CONTINUE taking these medications which have NOT CHANGED ACETAMINOPHEN-CODEINE 300-30 MG TABLET TAKE 1 TABLET BY MOUTH EVERY 6 HOURS NEEDED FOR PAIN BENEFIBER, WHEAT DEXTRIN, ORAL Take by mouth. Indications: OTC SUPPLEMENT START taking Modified Medications as Prescribed No medications on file STOP taking these medications No medications on file Follow-up appointments: To schedule other appointments, call the [facility] at or . You may also make appointments online by going to [email or web address] and follow the RequestAppointment quicklink. For worsening symptoms/problems/questions: Non-emergency/urgent: call the [facility] at or and ask for the Interventional radiologist recreation attendant. Patient and Family member provided with preferred teaching of verbal information and written information. Shows readiness to learn. Verbal instruction and Written material teaching provided. Individualis able to read and verbalizes understanding of teaching provided. Our Goal is to Always Provide You with Very Good Care! We will be mailing you a survey, Please complete and return at your convenience. Thank You TOBACCO AVOIDANCE Exposure to tobacco either from smoking or from second hand (environmental) smoke or smokeless tobacco (snuff) is damaging to your health. This information is to encourage everyone to avoid tobacco exposure. It is recommended that you: ? If you smoke or use smokeless tobacco, we encourage you to quit. ? If you have already quit smoking, continue your good work! ? If you do not smoke or use smokeless tobacco, do not start. ? Avoid secondhand smoke. Additional Resources You may want to contact these organizations for further information on smoking and how to quit. [employer], http://www.lungusa.org/stop-smoking/ [employer], http://www.cancer.org/Healthy/StayAwayfromTobacco/index [employer] [employer], http://www.heart.org/HEARTORG/GettingHealthy/QuitSmoking/Quit-Smoking_[facility] _001085_SubHomePage.jspPatient Discharge Instructions Follow instructions as indicated below: Today you had a procedure in the radiology department. We want to make sure that you have the information that you need to care for yourself after you go home. The nurse has explained the things that you need to do and has indicated the instruction that apply to your procedure below. General You received sedation-do not drive, operate machinery or make important decisions for the next 24hours. Resume diet and Medications Increase fluid intake over the next 24 hours. No heavy lifting (more than 5 pounds) or strenuous exercise for the next 24 hours. Avoid aspirin or aspirin containing products for 24 hours. Unless directed by your doctor, use non-aspirin pain relievers. Watch for signs and symptoms of infection (chills, fever of 101F, drainage, redness, edema, swelling). Avoid hot baths or showers for 24 hours, after 24 hours showers are preferred until the area has healed. The arm vein where medication was given may be tender. Apply a warm compress. If pain persists for more than 12 hours, call the number listed below. Keep port site dry and clean. If bleeding occurs at the site, place a clean cloth over the area and apply firm pressure for 15 minutes, If the area does not stop bleeding or you notice your site swelling, call the number listed below. Diet Instructions: Resume your normal diet Take Home Medications: These are medications ordered for you by your healthcare provider. Do not take any other medicationsor supplements unless advised by your healthcare provider. Patient's Medications START taking these medications CIPROFLOXACIN HCL 500 MG TABLET Take 1 tablet by mouth every 12 (twelve) hours for 7 days. CONTINUE taking these medications which have NOT CHANGED ACETAMINOPHEN-CODEINE 300-30 MG TABLET TAKE 1 TABLET BY MOUTH EVERY 6 HOURS NEEDED FOR PAIN BENEFIBER, WHEAT DEXTRIN, ORAL Take by mouth. Indications: OTC SUPPLEMENT START taking Modified Medications as Prescribed No medications on file STOP taking these medications No medications on file Follow-up appointments: To schedule other appointments, call the [facility] at or . You may also make appointments online by going to [email or web address] and follow the RequestAppointment quicklink. For worsening symptoms/problems/questions: Non-emergency/urgent: call the [facility] at or and ask for the Interventional radiologist recreation attendant. Patient and Family member provided with preferred teaching of verbal information and written information on 10/31/19. Shows readiness to learn. Verbal instruction and Written material teaching provided.Individual is able to read and verbalizes understanding of teaching provided. Our Goal is to Always Provide You with Very Good Care! We will be mailing you a survey, Please complete and return at your convenience. Thank You TOBACCO AVOIDANCE Exposure to tobacco either from smoking or from second hand (environmental) smoke or smokeless tobacco (snuff) is damaging to your health. This information is to encourage everyone to avoid tobacco exposure. It is recommended that you: ? If you smoke or use smokeless tobacco, we encourage you to quit. ? If you have already quit smoking, continue your good work! ? If you do not smoke or use smokeless tobacco, do not start. ? Avoid secondhand smoke. Additional Resources You may want to contact these organizations for further information on smoking and how to quit. [employer], http://www.lungusa.org/stop-smoking/ [employer], http://www.cancer.org/Healthy/StayAwayfromTobacco/index [employer], http://www.heart.org/HEARTORG/GettingHealthy/QuitSmoking/Quit-Smoking_[facility] _001085_SubHomePage.jsp documented in this encounter Procedure Notes [facility] 10/31/2019 10:30 AM CDTVASCULAR AND INTERVENTIONAL RADIOLOGY PROCEDURE NOTE Pre-procedure diagnosis: Chemotherapy. Post-procedure diagnosis: Same. Procedure: The right IJ was identified with the US with confirmed patency. A micropuncture kit was used to access the right IJ under US and fluoro guidance. A small pocket was created in the right upper chest wall after injection of 2% lidocaine. The pocket was flushed with a 60 cc of normal saline.The port was placed in the pocket. A 21 cm long port was tunneled along the right chest wall. The catheter was then introduced in the Rt IJ through a peel-away sheath. Post placement fluoro demonstrated appropriate placement. Findings: Successful right IJ port placement. Complications: None. Condition: Stable. Estimated blood loss: < 10 ml. Full dictated note to follow in PACS. Associated attestation - Saravanan Anguiano DO - 10/31/2019 3:52 PM CDTI, as a teaching physician, was present during the entire procedure and/or during the leyva components. I agree with the resident/fellow note. Saravanan Anguiano DO Faculty [facility]-Vascular and Interventional Radiology [phone] documented in this encounter Plan of Treatment Date Type Specialty Care Team Description 11/01/2019 Appointment Radiology Brianna Buckley MD [address] [place] [phone] 11/10/2019 Appointment Radiology Brianna Buckley MD [address] [place] [phone] 11/10/2019 Appointment Radiology Brianna Buckley MD [address] [place] [address] [phone] Office Visit Oncology Brianna Buckley MD [address] [place] [address] [phone] 11/24/2019 Office Visit Colorectal Surgery Arnaldo Westbrook MD [address] [place], [place] [phone] 15 Name Type Priority Associated Diagnoses Date/Ti me IR CENTRALLY INSERTED IMAGING MARY Rectal adenocarcino ma 10/31/2019 12:24 PM CDT DEVICE TUNNELED CATHETER WITH PORT 5 OR OLDER Health Maintenance Due Date Last Done Comments VARICELLA VACCINES (1 of 2 - 2-dose childhood series) 11/13/1984 PNEUMOCOCCAL 0-64 YEARS COMBINED SERIES (1 of 3 - 11/13/1989 PCV13) DTaP,Tdap,and Td Vaccines (1 - Tdap) 11/13/2002 PAP SMEAR 11/13/2004 INFLUENZA VACCINE (#1) 2019 Depression Screening 08/22/2020 08/23/2019 documented as of this encounter Procedures Procedure Name Priority Date/Time Associated Diagnosis Comme nts IR CENTRALLY INSERTED MARY 10/31/2019 12:24 PM Rectal adeno carcinoma DEVICE TUNNELED CDT CATHETER WITH PORT 5 OR OLDER Procedure Note - [facility], Radia nt Results Inft User - 10/31/2019 4:46 PM CDT EXAMINATION: PORT PLACEMENT USING ULTRASOUND AND FLUOROSCOPIC GUIDANCE. HISTORY: for chemo for Recta l Adenocarcinoma SEDATION: Moderate sedation was administered under the supervision of a trained nurse specialist who was independent from those actually performing the procedure. Please refer to [facility] note regarding sedation time. RADIATION DOSE: 4.3 mGy. TECHNIQUE: The risks, benefits and alte rnatives were discussed and informed consent was obtained. Prior to begin luis fernando the procedure, [place] Protocol was used to confirm the patient's anne marie ntity and planned procedure. Maximum sterile barriers including cap, mask , hand hygiene, sterile gloves, sterile gown, large sterile drape and cuta neous antisepsis were used. Prior to the procedure, the central veins were evaluated by ultrasound, and an image was recorded and sa ant in PACS. The skin over the right inte rnal jugular vein was sterilely prepped, draped and infiltrated with 1 perce nt lidocaine. The vein was accessed with a 21 gauge needle using realtime ultrasound guidance. A guidewire and catheter were then passed centrally u sing fluoroscopic guidance. The intravascular length from the access site to the right atrium was then assessed. After infiltrating the skin in the subclavicular region with 1 percent lidocaine, a short transverse incision was made and the pocket for the port reservoir was formed by blunt dissecti on. The catheter was tunneled to the IJ access site, cut to the appropriate length and inserted through a peel-away sheath. The catheter was flushed with 100 U/mL heparin and th e access needle was removed. The deep tissues were approx imated using 4-0 Vicryl, and the incision closed using Dermabond. The incision in the lower neck was closed with Dermabond. ESTIMATED BLOOD LOSS: Less t mary 30 mL. DISCHARGED TO: Outpatient re covery and then discharged. CONDITION: Stable. FINDINGS: Ultrasound image shows a pat ent vein in the lower neck. The final fluoroscopic image demonstra laura the catheter with its tip at the superior cavoatrial junction. No com plications are seen. IMPRESSION Successful right chest wall port placement. PLAN: The port is ready for immedi ate use. Please note that a power injectable port was placed. When treatm ent is completed, removal can be scheduled by calling VIR. [facility] nics: [phone]. [facility] [place]: . Preliminary Report Dictated by Resident: Georges Pat URINALYSIS Routine 10/31/2019 10:13 AM Rectal adenocarcinoma Results for this CDT procedure are i n the results section . CBC WITH DIFF Routine 10/31/2019 10:13 AM Rectal adenocarcinom a Results for this CDT procedure are i n the results section . documented in this encounter Results URINALYSIS (10/31/2019 10:13 AM CDT) Pathologist Sig nature APPEARANCE Hazy (A) Clear [facility] COLOR Yellow Yellow [facility] PH 5.0 4.8 - 8.0 [facility] SP GRAVITY 1.013 1.003 - 1.030 [facility] GLU U QUAL Normal Normal [facility] BLOOD 1+ (A) Negative [facility] KETONES Negative Negative [facility] PROTEIN Negative Negative [facility] UROBILIN 2.0 mg/dL (A) Normal [facility] BILIRUBIN Negative Negative [facility] NITRITE Negative Negative [facility] LEUK MERRITT 25/uL (A) Negative [facility] RBC/HPF 2 0 - 3 HPF [facility] WBC/HPF 2 0 - 5 HPF [facility] BACTERIA Few (A) Negative [facility] MUCOUS Slight (A) Negative LPF [facility] SQ EPITH 5 (H) <=2 HPF [facility] Specimen Urine - URINE, CLEAN CATCH Performing Organization Address City/State/Zipcode Phone Number [facility] CLIA: [id number] [place] [address] [place] [address] CBC WITH DIFF (10/31/2019 10:13 AM CDT) Pathologist Sig nature WBC 14.82 (H) 4.30 - 11.10 [facility] 10*3/L SERVICES RBC 5.12 3.93 - 5.25 [facility] 10*6/L SERVICES HGB 14.5 11.6 - 15.0 [facility] g/dL SERVICES HCT 44.1 35.7 - 45.2 % [facility] MCV 86.1 80.6 - 95.5 fL [facility] MCH 28.3 25.9 - 32.8 pg [facility] MCHC 32.9 31.6 - 35.1 [facility] g/dL SERVICES RDW-SD 42.7 39.0 - 49.9 fL [facility] RDW-CV 13.6 12.0 - 15.5 % [facility] SERVICES PLT 429 (H) 166 - 358 [facility] 10*3/L SERVICES MPV 9.0 (L) 9.5 - 12.9 fL [facility] NRBC/100 WBC 0.0 0.0 - 10.0 /100 [facility] WBCs SERVICES NRBC x10^3 <0.01 10*3/L [facility] GRAN MAT (NEUT) % 69.8 % [facility] IMM GRAN % 0.40 % [facility] LYMPH % 23.4 % [facility] MONO % 5.4 % [facility] EOS % 0.7 % [facility] BASO % 0.3 % [facility] GRAN MAT x10^3(ANC) 10.33 (H) 1.88 - 7.09 [facility] 10*3/uL SERVICES IMM GRAN x10^3 0.06 0.00 - 0.06 [facility] 10*3/uL SERVICES LYMPH x10^3 3.47 (H) 1.32 - 3.29 [facility] 10*3/uL SERVICES MONO x10^3 0.80 0.33 - 0.92 [facility] 10*3/uL SERVICES EOS x10^3 0.11 0.03 - 0.39 [facility] 10*3/uL SERVICES BASO x10^3 0.05 0.01 - 0.07 [facility] 10*3/uL SERVICES Specimen Blood Performing Organization Address City/State/Zipcode Phone Number [facility] CLIA: [id number] [place] [address] [place] [address] documented in this encounter Visit Diagnoses Diagnosis Rectal adenocarcinoma Malignant neoplasm of rectum documented in this encounter Administered Medications Medication Order MAR Action Action Date Dose Rate Site ceFAZolin (ANCEF) injection Given 10/31/2019 11:27 AM CDT 1,000 mg Slow IV Push, PRN, Starting 10/31/19 at 1127, Until Thu10/31/19 at 1127, MARY FENTanyl PF (SUBLIMAZE (PF)) injection Given 10/31/2019 11:35 AM CDT 50 mcg Slow IV Push, PRN, Starting 10/31/19 at 1127, Until Thu10/31/19 at 1135, Routine Given 10/31/2019 11:27 AM CDT 50 mcg midazolam (VERSED) injection Given 10/31/2019 11:35 AM CDT 1 mg IV Push, PRN, Starting 10/31/19 at 1127, Until Thu10/31/19 at 1135, Routine Given 10/31/2019 11:27 AM CDT 1 mg documented in this encounter Insurance Payer Benefit Plan / Subscriber ID Effective Dates Phone Addre ss Type Group [facility] [id number] 2019- [address] [place] [address] [employer] [id number] [place] [address] documented as of this encounter
--- OUTSIDE RECORDS SUMMARY | 2019-11-10 14:41 | XMS REPORT | Summary of Care ---
:1985 Author Organization [facility] Address [address] [place] [id number] Care Team Providers Name Role Phone Pcp, Patient Does Not Have A Primary Care Provider +[id number] 0-0000 Reason for Referral MRI/CAT Scan (MARY) Status Reason Specialty Diagnoses / Referred By Referred To Procedures Contact Contact Closed Diagnostic Diagnoses Rectal adenocarcinoma Rectal adenocarcinoma Brianna Buckley, Radiology Procedures MR PELVIS W WO CONTRAST CHG MRI, PELVIS, COMBO MR PELVIS W WO CONTRAST [address] [place] [phone] Reason for Visit MRI/CAT Scan (MARY) Status Reason Specialty Diagnoses / Referred By Referred To Procedures Contact Contact Closed Diagnostic Diagnoses Rectal adenocarcinoma Rectal adenocarcinoma Brianna Buckley, Radiology Procedures MR PELVIS W WO CONTRAST CHG MRI, PELVIS, COMBO MR PELVIS W WO CONTRAST [address] [place] [phone] Encounter Details Date Type Department Care Team Description 11/08/2019 Hospital Encounter [facility] Brianna Abernathy MD Arrived [address] [address] [place], [place] [phone] Allergies No Known Allergiesdocumented as of this encounter (statuses as of 11/09/2019) Medications Medication Sig Dispensed Refills Start Date End Date Status BENEFIBER, WHEAT Take by mouth. 0 Active DEXTRIN, Indications: OTC ORALIndications: OTC SUPPLEMENT SUPPLEMENT acetaminophen-codein TAKE 1 TABLET BY 0 10/17/2019 Active e 300-30 mg tablet MOUTH EVERY 6 HOURS NEEDED FOR PAIN documented as of this encounter (statuses as of 11/09/2019) Active Problems Problem Noted Date Sciatica of left side 10/27/2019 Rectal adenocarcinoma 08/23/2019 Cancer Staging: Clinical: Stage Unknown (cTX, cNX, cM0) - Unsigned Pathologic: Stage Unknown - Unsigned documented as of this encounter (statuses as of 11/09/2019) Social History Tobacco Use Types Packs/Day Years Used Date Current Every Day Smoker Cigarettes 15 Smokeless Tobacco: Never Used Alcohol Use Drinks/Week oz/Week Comments Not Currently Sex Assigned at Date Recorded Not on file COVID-19 Exposure Response Date Recorded In the last month, have you been in contact with No / Unsure 11/01/2019 3:29 PM CDT someone who was confirmed or suspected to have Coronavirus / COVID-19? documented as of this encounter Last Filed Vital Signs Not on filedocumented in this encounter Plan of Treatment Date Type Specialty Care Team Description 2019 Telemedicine Visit Oncology Byrd MD [address] [place] [address] [phone] Appointment Radiology Brianna Buckley MD [address] [place] [address] [phone] Appointment Radiology Brianna Buckley MD [address] [place] [address] [phone] 11/15/2019 Office Visit Radiation Therapy Rafal May MD [address] [place] [phone] 11/24/2019 Office Visit Colorectal Surgery Arnaldo Westbrook MD [address] [place], [place] [phone] 15 Health Maintenance Due Date Last Done Comments VARICELLA VACCINES (1 of 2 - 2-dose childhood series) 11/13/1984 PNEUMOCOCCAL 0-64 YEARS COMBINED SERIES (1 of 3 - 11/13/1989 PCV13) DTaP,Tdap,and Td Vaccines (1 - Tdap) 11/13/2002 PAP SMEAR 11/13/2004 INFLUENZA VACCINE (#1) 2019 Depression Screening 08/22/2020 08/23/2019 documented as of this encounter Procedures Procedure Name Priority Date/Time Associated Diagnosis Comme nts MR PELVIS W WO MARY 11/08/2019 12:33 Rectal adenocarcinoma Results for this CONTRAST PM CDT procedure are i n the results section. documented in this encounter Results MR PELVIS W WO CONTRAST (11/08/2019 12:33 PM CDT) Specimen Impressions Performed At Impression: PACS/VR/DOSE 1. A low rectal tumor is seen measuring approximatel y 5 cm in length and approaching the anal verge. There is ext ension outside the muscularis involving the left lateral wall (2 to 5: 00 position) with involvement of the internal anal sphincter and abutment of the external anal sphincter. More inferiorly there is extension to in volve the perineal soft tissues (9:26) and suspected involvement of the anterior wall of the vagina (6:39). Tumor characteristics suggest a T3c tumo r. 2. A right inguinal lymph node measures 0.8 cm in sh ort axis. Small lymph nodes seen in the right perirectal fat m easuring 0.6 cm and 0.4 cm (9:14 and 13) are suspicious for paula metastases. Findings suggest N1 disease. Narrative Performed At Exam: MR PELVIS W WO CONTRAST PACS/VR/DOSE Clinical History: Follow up of Rectal Ad enocarcinoma Comparison: None Findings: The uterus and cervix are unremarkable. Tiny nabothian cysts are seen in the cervix (6:43). The endometrial thickness measures 0.6 cm. The urinary bladder is unremarkable. The vagina is within normal limits. Bilaterally the ov everett show presence of developing follicles (8:18 and 20). A corpus luteal cyst is seen in the left ovary. A low rectal tumor is seen measuring carolina roximately 5 cm in length and approaching the anal verge. The tumor is seen extending outside the anal canal to involve the internal anal sphincter. The tumo r abuts the external anal sphincter (7:20). It involves the r ectum/anal canal at this level circumferentially. The extension outside the musculari s (measuring 0.8 cm) is seen predominantly involving the left lateral wall (9:17 and 7:19), 2 to 5:00 position. More inferiorly there is extension to i nvolve the perineal soft tissues (9:26) and suspected involvement of the a nterior wall of the vagina (6:39). Minimal free fluid is seen in the pelvis . A right inguinal lymph node is seen measuring 0.8 cm in short axis (9:7 ). No evidence of pelvic lymphadenopathy. No focal bone lesions a re seen. Procedure Note [facility], Radiant Results Inft User - 2019 1:56 PM CDT Exam: MR PELVIS W WO CONTRAST Clinical History: Follow up of Rectal Ad enocarcinoma Comparison: None Findings: The uterus and cervix are unremarkable. Tiny nabothian cysts are seen in the cervix (6:43). The endometrial thick ness measures 0.6 cm. The urinary bladder is unremarkable. The vagina is within normal limits. Bila terally the ovaries show presence of developing follicles (8:18 and 20). A corpus luteal cyst is seen in the left ovary. A low rectal tumor is seen measuring carolina roximately 5 cm in length and approaching the anal verge. The tumor is seen extending outside the anal canal to involve the internal anal sphin cter. The tumor abuts the external anal sphincter (7:20). It involves the r ectum/anal canal at this level circumferentially. The extension outside the muscularis (measuring 0.8 cm) is seen predominantly involving the left lateral wall (9:17 and 7:19), 2 to 5:00 position. More inferiorly there is extension to involve the perineal soft tissues (9:26) and suspected involv ement of the anterior wall of the vagina (6:39). Minimal free fluid is seen in the pelvis . A right inguinal lymph node is seen measuring 0.8 cm in short axis (9:7 ). No evidence of pelvic lymphadenopathy. No focal bone lesions a re seen. IMPRESSION Impression: 1. A low rectal tumor is seen measuring approximately 5 cm in length and approaching the anal verge. There is ext ension outside the muscularis involving the left lateral wall (2 to 5: 00 position) with involvement of the internal anal sphincter and abutment of the external anal sphincter. More inferiorly there is extension to in volve the perineal soft tissues (9:26) and suspected involvement of the anterior wall of the vagina (6:39). Tumor characteristics suggest a T3c tumo r. 2. A right inguinal lymph node measures 0.8 cm in short axis. Small lymph nodes seen in the right perirectal fat m easuring 0.6 cm and 0.4 cm (9:14 and 13) are suspicious for paula metasta ses. Findings suggest N1 disease. Performing Organization Address City/State/Zipcode Phone Number PACS/VR/DOSE documented in this encounter Visit Diagnoses Diagnosis Rectal adenocarcinoma Malignant neoplasm of rectum documented in this encounter Administered Medications Medication Order MAR Action Action Date Dose Rate Site gadoteridol (PROHANCE-15 mL) Given 11/08/2019 11:30 AM CDT 10 mL injection 0.2 mL/kg 0.2 mL/kg, Intravenous, ONCE, 1 dose, 11/08/19 at 1130, Routine documented in this encounter Insurance Payer Benefit Plan / Subscriber ID Effective Dates Phone Addre ss Type Group [facility] [id number] 2019- [address] [place] [address] [address] [employer] [address] [place] [address] documented as of this encounter
--- OUTSIDE RECORDS SUMMARY | 2019-11-10 14:41 | XMS REPORT | Summary of Care ---
:1985 Author Organization [facility] Address [address] [place] [address] Care Team Providers Name Role Phone Pcp, Patient Does Not Have A Primary Care Provider +1-000-00 0-0000 Reason for Referral (STAT) Status Reason Specialty Diagnoses / Referred By Referred To Procedures Contact Contact New Request Radiation Diagnoses Rectal adenocarcinoma Arnaldo Westbrook Therapy Procedures CONSULT RADIATION ONCOLOGY CONSULT RADIATION ONCOLOGY MD Josué [address] [place] [address] [place] [address] Reason for Visit Reason Comments Referral/consult Rectal Adenocarcinoma (MARY) Status Reason Specialty Diagnoses / Referred By Referred To Procedures Contact Contact Closed CRS-COLON & RECTAL Diagnoses Rectal adenocarcinoma Brianna Buckley Walker, John SURGERY / Procedures CONSULT/REFERRAL COLORECTAL SURGERY MD Josué MD Colorectal Surgery [address] [place] [address] [place] [phone] Phone: Encounter Details Date Type Department Care Team Description 10/27/2019 Office Visit [facility] Cancer Arnaldo Westbrook Rectal ad enocarcinoma Center-Colorectal MD Josué (Primary Dx) Surgery [address] [place] [address] [place] [address] [place], [place] [phone] Allergies No Known Allergiesdocumented as of this [...] file Gets together: Not on file Attends restorationism service: Not on file Active member of [...] 33.2 PATHOLOGY: RECEIVED TWO OUTSIDE SLIDES LABELED "[id number]" (COLLECTED ON 07/26/2019) AND DESIGNATED : A. RECTAL COLON, MASS, BIOPSY: - ADENOCARCINOMA, MODERATELY DIFFERENTIATED, ARISING IN TUBULOVILLOUS ADENOMA RECEIVED FOUR OUTSIDE SLIDES LABELED "[id number]" (COLLECTED ON 07/14/2019) AND DESIGNATED : A. COLON, DESCENDING, POLYPECTOMY: - TUBULAR ADENOMA - NO HIGH GRADE DYSPLASIA IDENTIFIED B. RECTUM, MASS, BIOPSY: - SUPERFICIAL FRAGMENTS OF TUBULOVILLOUS ADENOMA Addendum No change in final diagnosis. This addendum is issued to report the MSI result. Molecular study for KRAS/BRAF/NRAS has been ordered for the block A1 and the result will be issued in [facility] separately. These areresults of microsatellite instability (MSI) by immunohistochemistry (IHC). 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 10/27/2019 Jarad Whiting MD. PGY-1 [facility] General Surgery Service Pager: [phone] documented in this encounter Plan of Treatment Date Type Specialty Care Team Description 10/31/2019 Appointment Brianna Barnett MD [address] [place] [address] [phone] 11/01/2019 Appointment Brianna Barnett MD [address] [place] [address] [phone] 11/10/2019 Appointment Brianna aBrnett MD [address] [place] [address] [phone] 11/10/2019 Appointment Radiology Brianna Buckley MD [address] [place] [address] [phone] Office Visit Oncology Brianna Buckley MD [address] [place] [address] [phone] 11/24/2019 Office Visit Colorectal Surgery Arnaldo Westbrook MD [address] [place] [address]75 15 Health Maintenance Due Date Last Done [...] Addre ss Type Group [facility] [phone] 2019- [address] [place] [address] [address] [employer] [address] [place] [address] documented as of this encounter
--- OUTSIDE RECORDS SUMMARY | 2019-11-10 14:41 | XMS REPORT | Summary of Care ---
:1985 Author Organization [facility] Address [address] [place] [address] Care Team Providers Name Role Phone Pcp, Patient Does Not Have A Primary Care Provider +[phone] 0-0000 Reason for Referral Radiology Services (MARY) Status Reason Specialty Diagnoses / Referred By Referred To Procedures Contact Contact Authorized Diagnostic Diagnoses Rectal adenocarcinoma Brianna Buckley, Radiology Procedures IR CENTRALLY INSERTED DEVICE TUNNELED CATHETER WITH PORT 5 OR OLDER IR VENOUS ACCESS [address] [place] [phone] (Routine) Status Reason Specialty Diagnoses / Referred By Referred To Procedures Contact Contact New Request Pediatric Diagnoses Rectal adenocarcinoma Brianna Buckley, Genetics Procedures CONSULT/REFERRAL CANCER GENETICS [address] [place] [phone] (MARY) Status Reason Specialty Diagnoses / Referred By Referred To Procedures Contact Contact New Request Radiation Diagnoses Rectal adenocarcinoma Brianna Buckley, Therapy Procedures CONSULT RADIATION ONCOLOGY [address] [place] [phone] (MARY) Status Reason Specialty Diagnoses / Referred By Referred To Procedures Contact Contact Authorized CRS-COLON & Diagnoses Rectal adenocarcinoma Brianna Buckley Walker, John RECTAL SURGERY / Procedures CONSULT/REFERRAL COLORECTAL SURGERY MD Josué MD Colorectal [address] [place] [address] Dr [place], [place] Tamiko Barker [phone] Phone: Fax: MRI/CAT Scan (MARY) Status Reason Specialty Diagnoses / Referred By Referred To Procedures Contact Contact New Request Diagnostic Diagnoses Rectal adenocarcinoma Brianna Buckley, Radiology Procedures MR PELVIS W WO CONTRAST [address] [place] [phone] MRI/CAT Scan (MARY) Status Reason Specialty Diagnoses / Referred By Referred To Procedures Contact Contact New Request Diagnostic Diagnoses Rectal adenocarcinoma Brianna Buckley, Radiology Procedures CT ABDOMEN PELVIS W CONTRAST [address] [place] [phone] MRI/CAT Scan (MARY) Status Reason Specialty Diagnoses / Referred By Referred To Procedures Contact Contact New Request Diagnostic Diagnoses Rectal adenocarcinoma Brianna Buckley, Radiology Procedures CT THORAX W CONTRAST [address] [place] [phone] Reason for Visit Reason Comments Cancer Encounter Details Date Type Department Care Team Description 10/24/2019 Office Visit [facility] Brianna Buckley MD Rectal adenocarcinoma Hematology-Oncology [address] [place] [address] (Primary Dx) [place] [address] [place] [phone] [facility] [phone] [facility], [address] [place] [address] Allergies No Known Allergiesdocumented as of this encounter (statuses as of 10/26/2019) Medications Medication Sig Dispensed Refills Start Date End Date Status BENEFIBER, WHEAT Take by mouth. 0 Active DEXTRIN, Indications: OTC ORALIndications: OTC SUPPLEMENT SUPPLEMENT documented as of this encounter (statuses as of 10/26/2019) Active Problems Problem Noted Date Rectal adenocarcinoma 08/23/2019 Cancer Staging: Clinical: Stage Unknown (cTX, cNX, cM0) - Unsigned Pathologic: Stage Unknown - Unsigned documented as of this encounter (statuses as of 10/26/2019) Social History Tobacco Use Types Packs/Day Years [...] CDT documented in this encounter Progress Notes Santo Newman MD - 10/24/2019 2:30 PM CDTI personally examined the patient on 10/24/[address] Buckley's fellow note as written. I actively participated in the decision-making process. Please see the resident's note for additional details. Labs today, Need MARY staging imaging. Clinically not obstructed. Will discuss in GI TB after CT andMRI complete. Brianna Buckley MD - 10/24/2019 2:30 PM [...] file Gets together: Not on file Attends samaritan service: Not on file Active member of [...] Report 09/14/2019 Value:Surgical Pathology Outside Consult Case: [id number] Authorizing Provider: Brianna Buckley MD Collected: 09/14/2019 1139 Ordering Location: [facility] Received: 09/14/2019 1141 Laboratory Pathologist: Shweta Pelaez [...] six slides, consisting of two cases; from [facility] [address] [place] [address], [address], [place] [address]. # [phone]. . Two slides labeled '[id number]' (A1 lvl 03/17. Col date: 07/26/2019). Four slides labeled '[id number]' (A1, B1 [lvl 1]. Col date: 07/14/2019). BRAF Mutation 09/14/2019 Negative [...] OLDER CBC WITH DIFF COMP. METABOLIC PANEL (55803) CARCINOEMBRYONIC ANTIGEN BASIC METABOLIC PANEL (NA, K, [...] Oncology Fellow PG5 Dept of Hematology/Oncology, Pager: [phone] signed by Brianna Buckley MD at 10/24/2019 [...] Treatment Date Type Specialty Care Team Description 10/27/2019 Office Visit Colorectal Surgery Arnaldo Westbrook MD [address] [place], [place] [address] 15 [phone] 10/31/2019 Appointment Brianna Barnett MD [address] [place] [address] [phone] 11/10/2019 Appointment Brianna Barnett MD [address] [place] [phone] 11/10/2019 Appointment Brianna Barnett MD [address] [place] [address] [phone] 11/10/2019 Appointment Brianna Barnett MD [address] [place] [address] [phone] Office Visit Oncology Brianna Buckley MD [address] [place] [address] B [place], [place] [phone] Name Type Priority Associated Diagnoses Order S [...] Ex pected: 10/24/2019, ANTIBODY IGM Expires: 2020 Health Maintenance Due Date Last Done Comments VARICELLA VACCINES (1 of 2 - 2-dose childhood series) 11/13/1984 PNEUMOCOCCAL 0-64 YEARS COMBINED SERIES (1 of 3 - 11/13/1989 PCV13) DTaP,Tdap,and Td Vaccines (1 - Tdap) 11/13/2002 PAP SMEAR 11/13/2004 INFLUENZA VACCINE (#1) 2019 Depression Screening 08/22/2020 08/23/2019 documented as of this encounter Results HIV 1/2 AG-AB WITH REFLEX (10/24/2019 3:42 PM CDT) Pathologist Sig nature HIV 1/2 Ag-Ab with Negative Negative [facility] Reflex SERVICES HIV Semi-quantitative 0.12 [facility] Specimen Blood - ARM, LEFT Narrative Performed At Non-reactive for HIV-1 antigen and HIV-1/HIV-2 antibod ies. [facility] No laboratory evidence of HIV infection. Repeat in 2-4 weeks if acute HIV infection is suspected. Performing Organization Address City/State/Zipcode Phone Number [facility] CLIA: [id number] [place] [address] [place] [address] HEPATITIS B SURFACE ANTIBODY (10/24/2019 3:42 PM CDT) Pathologist Sig nature HBsAB Negative [facility] HBsAb 0.00 mIU/mL [facility] Semi-Quantitative SERVICES Specimen Blood - ARM, LEFT Narrative Performed At Interpretation: Hepatitis B Surface An tibody [facility] Negative - Patient is considered to be not immu ne to infection with HBV. Positive - Anti-HBs detected at greater than or equal to 12 mIU/mL. Patient is considered to be immune to infection with HBV. Performing Organization Address City/[facility] Phone Number [facility] CLIA: [id number] [place] [address] [place] [address] HCV ANTIBODY (10/24/2019 3:42 PM CDT) Pathologist Sig nature HCV Ab Negative [facility] HCV Semi-Quantitative 0.01 [facility] Specimen Blood - ARM, LEFT Performing Organization Address [facility] Phone Number [facility] CLIA: [id number] [place] [address] [place] [address] HEPATITIS B SURFACE ANTIGEN (10/24/2019 3:42 PM CDT) Pathologist Sig nature HBsAg Negative Negative [facility] HBsAg 0.10 [facility] Semi-Quantitative SERVICES Specimen Blood - ARM, LEFT Performing Organization Address [facility] Phone Number [facility] CLIA: [id number] [place] [address] [place] [address] FERRITIN SERUM (10/24/2019 3:42 PM CDT) Pathologist Sig nature FERRITIN 8.3 6.0 - 137.0 ng/mL [facility]ICE S Specimen Blood - ARM, LEFT Narrative Performed At Biotin has been reported to cause a negative bias, int erpret [facility] results relative to patient's use of biotin. Performing Organization Address City/[facility] Cent[facility] Phone Number [facility] CLIA: [id number] [place] [address] [place] [address] TOTAL IRON BINDING CAPACITY (10/24/2019 3:42 PM CDT) Pathologist Sig nature TIBC 333 250 - 410 ug/dL [facility] Specimen Blood - ARM, LEFT Performing Organization Address City/State/Zipcode Phone Number [facility] CLIA: [id number] [place] [address] [place] [address] PROTHROMBIN TIME / INR (10/24/2019 3:42 PM CDT) PROTIME PATIENT 12.0 10.1 - 12.6 [facility] Seconds SERVICES INR 1.1Comment: Normal [facility] INR <1.1; Warfarin SERVICES Therapeutic range 2.0 to 3.0 or 2.5 to 3.5, depending upon the indications. Specimen Blood - ARM, LEFT Performing Organization Address City/[facility]/Zipcode Phone Number [facility] CLIA: [id number] [place] [address] [place] [address] CARCINOEMBRYONIC ANTIGEN (10/24/2019 3:42 PM CDT) Pathologist Sig nature CEA 33.2 (H) 0.0 - 10.0 ng/mL [facility] Specimen Blood - ARM, LEFT Narrative Performed At CEA Ranges: [facility] Non-Smokers 0-5.0 ng/mL Smokers 0-10.0 ng/mL Performing Organization Address City/[facility]/Zipcode Phone Number [facility] CLIA: [id number] [place] [address] [place] [address] COMP. METABOLIC PANEL (77780) (10/24/2019 3:42 PM CDT) Pathologist Sig nature NA 140 135 - 145 mmol/L [facility] K 3.8 3.5 - 5.0 mmol/L [facility] CL 101 98 - 108 mmol/L [facility] CO2 TOTAL 29 23 - 31 mmol/L [facility] AGAP 10 2 - 16 [facility] BUN 13 7 - 23 mg/dL [facility] GLUCOSE 70 70 - 110 mg/dL [facility] CREATININE 0.63 0.50 - 1.04 [facility] mg/dL SERVICES TOTAL BILI 0.3 0.1 - 1.1 mg/dL [facility] CALCIUM 10.0 8.6 - 10.6 mg/dL [facility] T PROTEIN 7.6 6.3 - 8.2 g/dL [facility] ALBUMIN 4.6 3.5 - 5.0 g/dL [facility] ALK PHOS 52 34 - 122 U/L [facility] ALTv 8 5 - 35 U/L [facility] AST(SGOT) 17 13 - 40 U/L [facility] SERVICES eGFR Calculation 107.5 mL/min/1.73m2 [facility] (Non-) SERVICES eGFR Calculation 130.3 mL/min/1.73m2 [facility] () SERVICES Specimen Blood - ARM, LEFT Narrative Performed At Association of Glomerular Filtration Rate (GFR) and St aging [facility] SERVICES of Kidney Disease* + + [...] . Performing Organization Address City/State/Zipcode Phone Number [facility] CLIA: [id number] [place] [address] [place] [address] CBC WITH DIFF (10/24/2019 3:42 PM CDT) Pathologist Sig nature WBC 17.00 (H) 4.30 - 11.10 [facility] 10*3/L SERVICES RBC 4.92 3.93 - 5.25 [facility] 10*6/L SERVICES HGB 14.1 11.6 - 15.0 [facility] g/dL SERVICES HCT 43.2 35.7 - 45.2 % [facility] SERVICES MCV 87.8 80.6 - 95.5 fL [facility] SERVICES MCH 28.7 25.9 - 32.8 pg [facility] MCHC 32.6 31.6 - 35.1 [facility] g/dL SERVICES RDW-SD 43.9 39.0 - 49.9 fL [facility] RDW-CV 13.7 12.0 - 15.5 % [facility] PLT 475 (H) 166 - 358 [facility] 10*3/L SERVICES MPV 9.8 9.5 - 12.9 fL [facility] [...] BASO x10^3 0.08 (H) 0.01 - 0.07 [facility] 10*3/uL SERVICES Specimen Blood - ARM, LEFT Performing Organization Address City/State/Zipcode Phone Number [facility] CLIA: [id number] [place] [address] [place] [address] documented in this encounter Visit Diagnoses Diagnosis Rectal adenocarcinoma - Primary Malignant neoplasm of rectum documented in this encounter Insurance Payer Benefit Plan / Subscriber ID Effective Dates Phone Addre ss Type Group [facility] [phone] 2019- [address] [place] [address] Casebook [employer] 0[address] [place] [address] documented as of this encounter
--- OUTSIDE RECORDS SUMMARY | 2019-11-10 14:41 | XMS REPORT | Summary of Care ---
:1985 Author Organization [facility] Address [address] [place] [address] Care Team Providers Name Role Phone Pcp, Patient Does Not Have A Primary Care Provider +[id number] 0-0000 Reason for Referral Radiology Services (MARY) Status Reason Specialty Diagnoses / Referred By Referred To Procedures Contact Contact New Request Diagnostic Diagnoses Rectal adenocarcinoma Brianna Buckley, Radiology Procedures IR CENTRALLY INSERTED DEVICE TUNNELED CATHETER WITH PORT 5 OR OLDER IR VENOUS ACCESS [address] [place] [phone] (Routine) Status Reason Specialty Diagnoses / Referred By Referred To Procedures Contact Contact New Request Pediatric Diagnoses Rectal adenocarcinoma Brianna Buckley, Genetics Procedures CONSULT/REFERRAL CANCER GENETICS [address] [place] [phone] (MARY) Status Reason Specialty Diagnoses / Referred By Referred To Procedures Contact Contact New Request Radiation Diagnoses Rectal adenocarcinoma Brianna Buckley, Therapy Procedures CONSULT RADIATION ONCOLOGY [address] [place] [phone] (MARY) Status Reason Specialty Diagnoses / Procedures Referred By Scooby junior To Contact Contact New Request Surgery Diagnoses Rectal adenocarcinoma Brianna Buckley, Procedures CONSULT/REFERRAL COLORECTAL SURGERY [address] [place] [phone] MRI/CAT Scan (MARY) Status Reason Specialty Diagnoses / Referred By Referred To Procedures Contact Contact New Request Diagnostic Diagnoses Rectal adenocarcinoma Brianna Buckley, Radiology Procedures MR PELVIS W WO CONTRAST [address] [place] [phone] MRI/CAT Scan (MARY) Status Reason Specialty Diagnoses / Referred By Referred To Procedures Contact Contact New Request Diagnostic Diagnoses Rectal adenocarcinoma Brianna Buckley, Radiology Procedures CT ABDOMEN PELVIS W CONTRAST [address] [place] [phone] MRI/CAT Scan (MARY) Status Reason Specialty Diagnoses / Referred By Referred To Procedures Contact Contact New Request Diagnostic Diagnoses Rectal adenocarcinoma Brianna Buckley, Radiology Procedures CT THORAX W CONTRAST [address] [place] [phone] Reason for Visit Reason Comments Cancer Encounter Details Date Type Department Care Team Description 10/24/2019 Office Visit [facility] Brianna Buckley MD Rectal adenocarcinoma Hematology-Oncology [address] [place] [address] (Primary Dx) - [place], [place] [address] [address] [address] [phone] [facility], [address] [place] [address] Allergies No Known Allergiesdocumented as [...] file Gets together: Not on file Attends faith service: Not on file Active member of [...] Report 09/14/2019 Value:Surgical Pathology Outside Consult Case: [id number] Authorizing Provider: Brianna Buckley MD Collected: 09/14/2019 1139 [facility] Received: 09/14/2019 1141 Laboratory Pathologist: Shweta Pelaez [...] consisting of two cases; from [facility] [address] [place] [address], [address], [place] [address]. PH# [phone]. . Two slides labeled '[id number]' (A1 lvl 1/. Col date: 07/26/2019). Four slides labeled '[id number]' (A1, B1 [lvl 1/2]. Col date: 07/14/2019). [...] OLDER CBC WITH DIFF COMP. METABOLIC PANEL (78217) CARCINOEMBRYONIC ANTIGEN BASIC METABOLIC PANEL (NA, K, [...] Oncology Fellow PG5 Dept of Hematology/Oncology, Pager: [phone] signed by Brianna Buckley MD at 10/24/2019 [...] Description 11/10/2019 Appointment Radiology Brianna Buckley MD [address] [place] [address] [phone] 11/10/2019 Appointment Radiology Brianna Buckley MD [address] [place] [address] [phone] 11/10/2019 Appointment Radiology Brianna Buckley MD [address] [place] [address] [phone] Office Visit Oncology Brianna Buckley MD [address] [place] [address] [phone] Name Type Priority Associated Diagnoses Date/Ti [...] PM CDT) Pathologist Sig nature HBsAB Negative [facility] HBsAb 0.00 mIU/mL [facility] Semi-Quantitative SERVICES Specimen Blood - ARM, LEFT Narrative Performed At Interpretation: Hepatitis B Surface An tibody [facility] Negative - Patient is considered to be not immu ne to infection with HBV. Positive - Anti-HBs detected at greater than or equal to 12 mIU/mL. Patient is considered to be immune to infection with HBV. Performing Organization Address City/[facility]/Zipcode Phone Number [facility] CLIA: [id number] [place] [address] [address] [facility] HCV ANTIBODY (10/24/2019 3:42 PM CDT) Pathologist Sig nature HCV Ab Negative [facility] HCV Semi-Quantitative 0.01 [facility] Specimen Blood - ARM, LEFT Performing Organization Address City/State/Zipcode Phone Number [facility] CLIA: [id number] [place], [place] [id number] [address] [facility] HEPATITIS B SURFACE ANTIGEN (10/24/2019 3:42 PM CDT) Pathologist Sig nature HBsAg Negative Negative [facility] HBsAg 0.10 [facility] Semi-Quantitative SERVICES Specimen Blood - ARM, LEFT Performing Organization Address City/[facility] Phone Number [facility] CLIA: [id number] [place] [address] [address] [facility] FERRITIN SERUM (10/24/2019 3:42 PM CDT) Pathologist Sig nature FERRITIN 8.3 6.0 - 137.0 ng/mL [facility] S Specimen Blood - ARM, LEFT Narrative Performed At Biotin has been reported to cause a negative bias, int erpret [facility] results relative to patient's use of biotin. Performing Organization Address City/[facility] Mex[facility]ode Phone Number [facility] CLIA: [id number] [place] [address] [place] [address] TOTAL IRON BINDING CAPACITY (10/24/2019 3:42 PM CDT) Pathologist Sig nature TIBC 333 250 - 410 ug/dL [facility] Specimen Blood - ARM, LEFT Performing Organization Address City/[facility] Mex[facility] Phone Number [facility] CLIA: [id number] [place] [address] [place] [address] PROTHROMBIN TIME / INR (10/24/2019 3:42 PM CDT) PROTIME PATIENT 12.0 10.1 - 12.6 [facility] Seconds SERVICES INR 1.1Comment: Normal [facility] INR <1.1; Warfarin SERVICES Therapeutic range 2.0 to 3.0 or 2.5 to 3.5, depending upon the indications. Specimen Blood - ARM, LEFT Performing Organization Address [facility] Phone Number [facility] CLIA: [id number] [place] [address] [place] [address] CARCINOEMBRYONIC ANTIGEN (10/24/2019 3:42 PM CDT) Pathologist Sig nature CEA 33.2 (H) 0.0 - 10.0 ng/mL [facility] Specimen Blood - ARM, LEFT Narrative Performed At CEA Ranges: [facility] Non-Smokers 0-5.0 ng/mL Smokers 0-10.0 ng/mL Performing Organization Address City/[facility] Mexicocode Phone Number [facility] CLIA: [id number] [place] [address] [phone] 301 [facility] COMP. METABOLIC PANEL (30015) (10/24/2019 3:42 PM CDT) Pathologist Sig nature NA 140 135 - 145 mmol/L [facility] K 3.8 3.5 - 5.0 mmol/L [facility] CL 101 98 - 108 mmol/L [facility] CO2 TOTAL 29 23 - 31 mmol/L [facility] AGAP 10 2 - 16 [facility] BUN 13 7 - 23 mg/dL [facility] GLUCOSE 70 70 - 110 mg/dL [facility] CREATININE 0.63 0.50 - 1.04 [facility] mg/dL SERVICES TOTAL BILI 0.3 0.1 - 1.1 mg/dL [facility] CALCIUM 10.0 8.6 - 10.6 mg/dL [facility] T PROTEIN 7.6 6.3 - 8.2 g/dL [facility] ALBUMIN 4.6 3.5 - 5.0 g/dL [facility] ALK PHOS 52 34 - 122 U/L [facility] ALTv 8 5 - 35 U/L [facility] AST(SGOT) 17 13 - 40 U/L [facility] eGFR Calculation 107.5 mL/min/1.73m2 [facility] (Non-) SERVICES eGFR Calculation 130.3 mL/min/1.73m2 [facility] () SERVICES Specimen Blood - ARM, LEFT Narrative Performed At Association of Glomerular Filtration Rate (GFR) and St aging [facility] SERVICES of Kidney Disease* + [...] . Performing Organization Address City/State/Zipcode Phone Number [facility] CLIA: [id number] [place] [address] [place] [address] CBC WITH DIFF (10/24/2019 3:42 PM CDT) Pathologist [facility] nature WBC 17.00 (H) 4.30 - 11.10 [...] SERVICES MPV 9.8 9.5 - 12.9 fL [facility] NRBC/100 WBC 0.0 0.0 - [...] BASO x10^3 0.08 (H) 0.01 - 0.07 [facility] 10*3/uL SERVICES Specimen Blood - ARM, LEFT Performing Organization Address City/State/Zipcode Phone Number [facility] CLIA: [id number] [place] [address] [place] [address] documented in this encounter Visit Diagnoses Diagnosis Rectal adenocarcinoma - Primary Malignant neoplasm of rectum documented in this encounter Insurance Payer Benefit Plan / Subscriber ID Effective Dates Phone Addre ss Type Group [facility] [phone] 2019- [address] [place] [address] Casebook [employer] 021 [place] [address] documented as of this encounter
--- OUTSIDE RECORDS SUMMARY | 2019-11-10 14:41 | XMS REPORT | Summary of Care ---
:1985 Author Organization [facility] Address [address] [place] [address] Care Team Providers Name Role Phone Pcp, Patient Does Not Have A Primary Care Provider +[phone] 0-0000 Reason for Referral (STAT) Status Reason Specialty Diagnoses / Referred By Referred To Procedures Contact Contact New Request Radiation Diagnoses Rectal adenocarcinoma Arnaldo Westbrook Therapy Procedures CONSULT RADIATION ONCOLOGY CONSULT RADIATION ONCOLOGY MD Josué [address] [place] [address] [place] [address] Reason for Visit Reason Comments Referral/consult Rectal Adenocarcinoma (MARY) Status Reason Specialty Diagnoses / Referred By Referred To Procedures Contact Contact Closed CRS-COLON & RECTAL Diagnoses Rectal adenocarcinoma Brianna Buckley Walker, John SURGERY / Procedures CONSULT/REFERRAL COLORECTAL SURGERY MD Josué MD Colorectal Surgery [address] [place] [address] [place] [phone] Phone: Encounter Details Date Type Department Care Team Description 10/27/2019 Office Visit [facility] Cancer Arnaldo Westbrook Rectal ad enocarcinoma Center-Colorectal MD Josué (Primary Dx) Surgery [address] [place] [address] [address] [facility], 2nd [place] [address] [place], [place] [phone] [phone] Allergies No Known Allergiesdocumented as of this [...] file Gets together: Not on file Attends adventism service: Not on file Active member of [...] 33.2 PATHOLOGY: RECEIVED TWO OUTSIDE SLIDES LABELED "[id number]" (COLLECTED ON 07/26/2019) AND DESIGNATED : A. RECTAL COLON, MASS, BIOPSY: - ADENOCARCINOMA, MODERATELY DIFFERENTIATED, ARISING IN TUBULOVILLOUS ADENOMA RECEIVED FOUR OUTSIDE SLIDES LABELED "[id number]" (COLLECTED ON 07/14/2019) AND DESIGNATED : A. COLON, DESCENDING, POLYPECTOMY: - TUBULAR ADENOMA - NO HIGH GRADE DYSPLASIA IDENTIFIED B. RECTUM, MASS, BIOPSY: - SUPERFICIAL FRAGMENTS OF TUBULOVILLOUS ADENOMA Addendum No change in final diagnosis. This addendum is issued to report the MSI result. Molecular study for KRAS/BRAF/NRAS has been ordered for the block A1 and the result will be issued in [facility] separately. These areresults of microsatellite instability (MSI) by immunohistochemistry (IHC). The immunostain form MSI was performed on the outside block A1 at [facility] with appropriate controls andshow the following results: MLH 1Positive nuclear staining MZF5Nhcafnus nuclear staining CDD4Totcpxze nuclear staining LZD1Ahnknjge nuclear staining Interpretation of MSI phenotype by [...] 1 month. 10/27/2019 Jarad Whiting MD. PGY-1 [facility] General Surgery Service Pager: [phone] documented in this encounter Plan of Treatment Date Type Specialty Care Team Description 10/31/2019 Appointment Brianna Barnett MD [address] [place] [address] [phone] 11/01/2019 Appointment Brianna Barnett MD [address] [place] [address] [phone] 11/10/2019 Appointment Brianna Barnett MD [address] [place] [address] [phone] 11/10/2019 Appointment Radiology Brianna Buckley MD [address] [place] [address] [phone] Office Visit Oncology Brianna Buckley MD [address] [phone] 11/24/2019 Office Visit Colorectal Surgery Arnaldo Westbrook MD [address] [place] [address] [phone] Health Maintenance Due Date Last [...] Addre ss Type Group [facility] [phone] 2019- [address] [place] [address] Case[address] [address] [place] [address] documented as of this encounter
--- OUTSIDE RECORDS SUMMARY | 2019-11-10 14:41 | XMS REPORT | Summary of Care ---
:1985 Author Organization [facility] - Health Address [address] [place] [address] Care Team Providers Name Role Phone Pcp, Patient Does Not Have A Primary Care Provider +1-000-00 0-0000 Reason for Visit Reason Comments Case Management Approved/Casebook Request Encounter Details Date Type Department Care Team Description 10/24/2019 Case Management [facility] Case Management eBulah Mondragon Case Management and Utilization C, RN (Approved/Casebook Review [address] [facility] Request) [address] [place] [address] [place], [place] [phone] Allergies No Known Allergiesdocumented as of this [...] this encounter Progress Notes Nuha Asif - 10/24/2019 11:59 PM CDT From: Nuha Asif <[email or web address]> Sent: Thursday, October 24, 2019 2:32 PM To: August Silva <[email or web address]> Cc: Reinier Becerra <[email or web address]>; Nuha Asif <[email or web address]>; Care Management Case Book Coordinator <[email or web address]>; Santo Newman <[email or web address]>; Marti Leblanc <[email or web address]>; Joy Berkowitz <[email or web address]>; Maggy Rowe <[email or web address]>; Brianna Buckley <[email or web address]>; Evelyn Reed <[email or web address]>; Allyssa Asif <[email or web address]>; Kelley Dhillon <[email or web address]>; Katerin Hook <[email or web address]> Subject: Latosha Wilkinson / [id number] Approved/Casebook Request Dr. Silva, This letter serves as a notification that patient Latosha Wilkinson / [id number] is medically and financially approved for the requested Casebook services below. The approval started 10/24/19 expires on 04/25/20 or the date the approved plan of care is completed, whichever occurs first. Please be advised that the approved plan of care below includes only the items that will be covered for this Casebook request. If any further treatment is needed, a new Casebook request will need to besubmitted to the Casebook Committee or an Addendum to your Casebook needs to be submitted for approval before services are provided. The patients financial responsibility (To Be Determined) for the approved services is displayed in the table below. Items Date Scheduled Patients co-pay Completion date Med/Onc consult w/labs prn TBD $35. Colorectal eval w/labs prn TBD $35. Rad/Onc Eval TBD $35. MRI TBD TBD CT TBD TBD Financial Counseling has been notified and will load the appropriate plan code to only the approved referrals in the EPIC system. You may proceed with the approved plan of care as outlined above. Additionally, [facility] does not have an outpatient pharmacy license and there is no mechanism for Casebook to cover outpatient medications. Patients can obtain assistance thru various medication assistance programs. Additionally, patients are required to complete financial screening, a minimum of every 6 months or with each casebook submission. The goal of financial screening is to assist the patient/family in identifying and utilizing local/state/federal resources to access care, facilitate health promotion, and health wellness. Patients must comply with the financial re-screening requirements to maintain eligibility according to [facility] [employer] Policy 9.8.2. In the event the patient does not cooperate with financial screening, or does not qualify for a go discount, treatment may be denied and/or the patient may be responsible for all charges and fees. Please let me know if you have any questions or concerns. Respectfully, The Casebook Coordinator Thank you, Nuha Asif Casebook Coordinator Department of Care Management P: [phone] F: [phone] M: [phone] E: [email or web address] E: [email or web address] documented in this encounter Plan of Treatment Date Type Specialty Care Team Description 10/27/2019 Office Visit Colorectal Surgery Arnaldo Westbrook MD [address] [place] [address]75 15 10/31/2019 Appointment Radiology Brianna Buckley MD [address] [place] [address] [phone] 11/10/2019 Appointment Radiology Brianna Buckley MD [address] [place] [address] [phone] 11/10/2019 Appointment Radiology Brianna Buckley MD [address] [place] [address] [phone] 11/10/2019 Appointment Radiology Brianna Buckley MD [address] [place] [address] [phone] Office Visit Oncology Biranna Buckley MD [address] [place] [address] [phone] Health Maintenance Due Date Last Done Comments VARICELLA VACCINES (1 of 2 - 2-dose childhood series) 11/13/1984 PNEUMOCOCCAL 0-64 YEARS COMBINED SERIES (1 of 3 - 11/13/1989 PCV13) DTaP,Tdap,and Td Vaccines (1 - Tdap) 11/13/2002 PAP SMEAR 11/13/2004 INFLUENZA VACCINE (#1) 2019 Depression Screening 08/22/2020 08/23/2019 documented as of this encounter Results Not on filedocumented in this encounter Insurance Payer Benefit Plan / Subscriber ID Effective Dates Phone Addre ss Type Group [facility] [id number] 2019- [address] [place] [address] Casebook [facility] [address] [place] [address] documented as of this encounter
[2019-11-10] MEDS ORDERED: LIDOCAINE 1% MPF 5 ML VIAL ONE (15:19)
--- NOTE | 2019-11-10 15:46 | ER ---
Nurse's Notes [facility] Name: Latosha Wilkinson Age: 33 yrs Sex: Female : 1985 Arrival Date: 11/10/2019 Time: 14:39 Bed 26 Private MD: Diagnosis: Abscess of Bartholin's gland Presentation: 11/09 14:41 Chief complaint: Patient states: vaginal abscess x 2 days. Coronavirus screen: Client sv denies travel out of the [place] in the last 14 days. At this time, the client does not indicate any symptoms associated with coronavirus-19. Ebola Screen: No symptoms or risks identified at this time. Risk Assessment: Do you want to hurt yourself or someone else? Patient reports no desire to harm self or others. Onset of symptoms was November 08, 2019. 14:41 Method Of Arrival: Ambulatory sv 14:41 Acuity: MARIANNE 3 sv 14:43 Initial Sepsis Screen: Does the patient meet any 2 criteria? No. Patient's initial sv sepsis screen is negative. Does the patient have a suspected source of infection? No. Patient's initial sepsis screen is negative. Triage Assessment: 14:42 General: Appears in no apparent distress. comfortable, Behavior is calm, cooperative. ls4 Neuro: Oriented to person, place, time, situation. Cardiovascular: No deficits noted. Respiratory: No deficits noted. GI: No deficits noted. No signs and/or symptoms were reported involving the gastrointestinal system. 14:45 Pain: Complains of pain in right labia minora Pain currently is 8 out of 10 on a pain ls4 scale. Historical: - Allergies: 14:42 No Known Allergies; sv - PMHx: 14:42 kidney infection; Colon cancer; sv - PSHx: 14:42 ; sv - Immunization history:: Adult Immunizations up to date. Screenin:42 Abuse screen: Denies threats or abuse. Denies injuries from another. Nutritional ls4 screening: No deficits noted. Tuberculosis screening: No symptoms or risk factors identified. Fall Risk None identified. Vital Signs: 14:43 BP 119 / 72; Pulse 89; Resp 16; Temp 98.8; Pulse Ox 98% ; sv 15:30 BP 128 / 70; Pulse 78; Resp 16; Temp 98.6(O); Pulse Ox 98% on R/A; Pain 5/10; ls4 ED Course: 14:39 Patient arrived in ED. ds1 14:41 Arm band placed on. sv 14:42 Triage completed. sv 14:42 Patient has correct armband on for positive identification. Bed in low position. Call ls4 light in reach. Side rails up X 1. Pulse ox on. NIBP on. Verbal reassurance given. 14:48 Lex Pinedo PA is PHCP. jr8 14:48 Felix Diamond MD is Attending Physician. jr8 15:02 Bea Cui, RN is Primary Nurse. ls4 15:30 Assist provider with I \T\ D: of an abscess on Bartholin's gland Set up I\T\D tray. ls 4 Performed by Lex HEDRICK Patient tolerated well. 15:30 Patient did not have IV access during this emergency room visit. ls4 Administered Medications: No medications were administered Outcome: 15:46 Discharge ordered by . jr8 16:22 Patient left the ED. ls4 18:19 Discharged to home ambulatory. ls4 18:19 Condition: improved 18:19 Discharge instructions given to patient, Instructed on discharge instructions, follow up and referral plans. Demonstrated understanding of instructions, follow-up care, medications, Prescriptions given X 1. Signatures: Christine De Dios RN RN Roberta Stevenson ds1 Lex Pinedo PA PA jrBea Chatterjee, RN RN ls4 Corrections: (The following items were deleted from the chart) 18:19 18:11 General: Appears in no apparent distress. comfortable, Behavior is calm, ls4 cooperative, ls4 18:19 18:11 Pain: Complains of pain in right labia minora Pain currently is 8 out of 10 on a ls4 pain scale. ls4 18:19 18:11 Neuro: Oriented to person, place, time, situation, ls4 ls4 18:19 18:11 Cardiovascular: No deficits noted. ls4 ls4 18:19 18:11 Respiratory: No deficits noted. ls4 ls4 18:19 18:11 GI: No deficits noted. No signs and/or symptoms were reported involving the ls4 gastrointestinal system. ls4 18:19 18:11 : No deficits noted. No signs and/or symptoms were reported regarding the ls4 genitourinary system. ls4 18:19 18:11 Derm: No deficits noted. No signs and/or symptoms reported regarding the ls4 dermatologic system. ls4 18:11 Musculoskeletal: No deficits noted. No signs and/or symptoms reported regarding ls4 the musculoskeletal system. ls4
--- NOTE | 2019-11-10 15:47 | EDPHYS ---
Physician Documentation [facility] Name: Latosha Wilkinson Age: 33 yrs Sex: Female : 1985 Arrival Date: 11/10/2019 Time: 14:39 Bed 26 Private MD: ED Physician Felix Diamond HPI: 11/09 15:57 This 33 yrs old Female presents to ER via Ambulatory with complaints of Cyst. jr8 15:57 Onset: The symptoms/episode began/occurred gradually, 1 day(s) ago. Associated signs jr8 and symptoms: The patient has no apparent associated signs or symptoms. The patient has experienced a previous episode. The patient has not recently seen a physician. History of Bartholin abscess in past. Feels she has another one to right lower labial region . Historical: - Allergies: 14:42 No Known Allergies; sv - PMHx: 14:42 kidney infection; Colon cancer; sv - PSHx: 14:42 ; sv - Immunization history:: Adult Immunizations up to date. ROS: 15:57 Eyes: Negative for injury, pain, redness, and discharge, ENT: Negative for injury, jr8 pain, and discharge, Neck: Negative for injury, pain, and swelling, Cardiovascular: Negative for chest pain, palpitations, and edema, Respiratory: Negative for shortness of breath, cough, wheezing, and pleuritic chest pain, Abdomen/GI: Negative for abdominal pain, nausea, vomiting, diarrhea, and constipation, Back: Negative for injury and pain, MS/Extremity: Negative for injury and deformity, Skin: Negative for injury, rash, and discoloration, Neuro: Negative for headache, weakness, numbness, tingling, and seizure. 15:57 : Positive for pelvic pain. Exam: 15:57 Constitutional: This is a well developed, well nourished patient who is awake, alert, jr8 and in no acute distress. Cardiovascular: Regular rate and rhythm with a normal S1 and S2. No gallops, murmurs, or rubs. Normal PMI, no JVD. No pulse deficits. Respiratory: Lungs have equal breath sounds bilaterally, clear to auscultation and percussion. No rales, rhonchi or wheezes noted. No increased work of breathing, no retractions or nasal flaring. Abdomen/GI: Soft, non-tender, with normal bowel sounds. No distension or tympany. No guarding or rebound. No evidence of tenderness throughout. Skin: Warm, dry with normal turgor. Normal color with no rashes, no lesions, and no evidence of cellulitis. MS/ Extremity: Pulses equal, no cyanosis. Neurovascular intact. Full, normal range of motion. Neuro: Awake and alert, GCS 15, oriented to person, place, time, and situation. Cranial nerves II-XII grossly intact. Motor strength 5/5 in all extremities. Sensory grossly intact. Cerebellar exam normal. Normal gait. 15:57 : Pelvic Exam: External exam: Bartholin's cyst present, discharge, is not appreciated, the nurse was present for the exam. Vital Signs: 14:43 BP 119 / 72; Pulse 89; Resp 16; Temp 98.8; Pulse Ox 98% ; sv 15:30 BP 128 / 70; Pulse 78; Resp 16; Temp 98.6(O); Pulse Ox 98% on R/A; Pain 5/10; ls4 Procedures: 15:43 I \T\ D: Incision and drainage was performed for an abscess of the right Bartholin's jr8 gland. Prepped with Betadine, Anesthetized with 2 ml's 1% Lidocaine. Incised with #11 blade. Drained small amount purulent fluid. bloody fluid. Abscess cavity explored. Packed with none due to close malignant tumor. Dressing: sterile 4x4 gauze, the patient tolerated the procedure well. MDM: 14:48 Patient medically screened. [facility] 15:43 Data reviewed: vital signs, nurses notes, and as a result, I will discharge patient. jr8 Data interpreted: Pulse oximetry: on room air is 98 %. Interpretation: normal. Counseling: I had a detailed discussion with the patient and/or guardian regarding: the historical points, exam findings, and any diagnostic results supporting the discharge/admit diagnosis, the need for outpatient follow up, an OB/Gyne specialist, to return to the emergency department if symptoms worsen or persist or if there are any questions or concerns that arise at home. 15:47 ED course: Discussed with patient that abscess was superficial in nature. Questioned jr8 patient after seing and palpating region if she knew where her colon cancer was because it felt like there was a mass like structure to the anterior vaginal wall. Patient stated that she had been having pain with intercourse and that they said it was lower in that region. 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 Incision was superficial and I felt no mass like structure with incision. Bluntly felt area in which no abnormal drainage was seen and no mass superficially was felt. Advised her to keep close eye on it and to f/u soon to make sure it does not get worse. . Administered Medications: No medications were administered Disposition: 18:38 Co-signature as Attending Physician, Felix Diamond MD. rn Disposition: 11/10/19 15:46 Discharged to Home. Impression: Abscess of Bartholin's gland. - Condition is Stable. - Discharge Instructions: Bartholin Cyst or Abscess, Incision and Drainage. - Prescriptions for Clindamycin HCl 300 mg Oral Capsule - take 1 capsule by ORAL route every 6 hours for 7 days; 28 capsule. - Medication Reconciliation Form, Thank You Letter, Antibiotic Education, Prescription Opioid Use form. - Follow up: Private Physician; When: 5 - 6 days; Reason: Wound Recheck, Recheck today's complaints, Continuance of care, Re-evaluation by your physician. - Problem is new. - Symptoms have improved. Signatures: Christine De Dios RN RN sv Nieto, Roman, MD MD rn Roszak, Josh, PA PA jr8 Bea Cui RN RN ls4 Corrections: (The following items were deleted from the chart) 16:22 15:46 11/10/2019 15:46 Discharged to Home. Impression: Abscess of Bartholin's gland. ls4 Condition is Stable. Forms are Medication Reconciliation Form, Thank You Letter, Antibiotic Education, Prescription Opioid Use. Follow up: Private Physician; When: 5 - 6 days; Reason: Wound Recheck, Recheck today's complaints, Continuance of care, Re-evaluation by your physician. Problem is new. Symptoms have improved. jr8
[2019-11-15 01:53] VITALS: BP 119/72; TEMP 98.8; O2SAT 98
== END 2019-11-10 16:22 | disposition home or self-care (01) ==
LOC: ER 14:37
PROC: 0U9L0ZX Drainage of Vestibular Gland, Open Approach, Diagnostic (ICD-10-PCS; principal; 2019-11-10)
DX: N75.1 Abscess of Bartholin's gland (principal); Z85.038 Personal history of other malignant neoplasm of large intestine
CPT/HCPCS: 99283

== ENCOUNTER 2022-05-07 19:02 | Emergency (ER) | payer SELFPAY ==
--- OUTSIDE RECORDS SUMMARY | 2022-05-07 19:11 | XMS REPORT | Continuity of Care Document ---
:1985 Author Organization [facility] t Address [address] [place] [address] Care Team Providers Name Role Phone PCP, PATIENT DOES NOT HAVE A Primary Care Physician UnavailGERI Moreno Attending Clinician Unavailable MAGDI PELAYO Attending Clinician Unavailable IMELDA DAILY Attending Clinician Unavailable SYSTEM, PROVIDER NOT IN Attending Clinician Unavailable MARIANA AVINA Attending Clinician Unavailable JUSTIN AGGARWAL Attending Clinician Unavailable JUSTIN AGGARWAL Attending Clinician Unavailable ANDIE DOW Attending Clinician Unavailable Margaret Martinez DO Attending Clinician [phone] Justin Aggarwal MD Attending Clinician [facility] Attending Clinician Unavailable Doctor Unassigned, [place] Attending Clinician Unavailable ABENA AREVALO Attending Clinician Unavailable Andie Dow MD Attending Clinician Grazyna Narayanan MD Attending Clinician GRAZYNA NARAYANAN Attending Clinician Unavailable 4, [facility] Infusion Chair Attending Clinician Unavailable Moses Dyer MD Attending Clinician MOSES DYER Attending Clinician Unavailable 1, [facility] Infusion Chair Attending Clinician Unavailable 7, [facility] Infusion Chair Attending Clinician Unavailable 2, [facility] Infusion Chair Attending Clinician Unavailable Renee Lim RN Attending Clinician Unavailable Marti Leblanc LMSW Attending Clinician Unavailable Pob, [facility] Attending Clinician Unavailable RADIOLOGY Attending Clinician Unavailable JESUS ANGUIANO Attending Clinician Unavailable Jesus Anguiano DO Attending Clinician Only, [facility] Test Attending Clinician Unavailable Radiology Attending Clinician Unavailable Geri Figueredo MD Attending Clinician 1, [facility] Attending Clinician Unavailable Pietro BELLAMY, Mamta Attending Clinician MAMTA WESTBROOK Attending Clinician Unavailable Zachary HUMPHREYS, Anita Macias Attending Clinician DACIA HAMLIN Attending Clinician Unavailable Joy Najera RN Attending Clinician Unavailable Quincy Muir MD Attending Clinician Arturo Juarez MD Attending Clinician Mamta Orozco MD Attending Clinician MAMTA OROZCO Attending Clinician Unavailable Mariana Avina MD Attending Clinician Yakelin BELLAMY, Dacia Attending Clinician 5, [facility] Infusion Chair Attending Clinician Unavailable JOVON RAMIREZ Attending Clinician Unavailable SYLVIA HARP Attending Clinician Unavailable OMI BUCKLEY Attending Clinician Unavailable JANE GUPTA Attending Clinician Unavailable DHARA CURIEL Attending Clinician Unavailable COLIN TORRES Attending Clinician Unavailable IMNI DONATO Attending Clinician Unavailable MINI DONATO Attending Clinician Unavailable CLEVE OLIVER Attending Clinician Unavailable Unknown, Attending Attending Clinician Unavailable Banjillian Jenkins DO, Cleve Attending Clinician [phone] Jadyn Mondragon RN Attending Clinician 1, [facility] Rad Oncology Linac Attending Clinician Unavailable Omi Buckley MD Attending Clinician Ct, [facility] Rad Oncology Attending Clinician Unavailable GERI FIGUEREDO Admitting Clinician Unavailable MAGDI PELAYO Admitting Clinician Unavailable IMELDA DAILY Admitting Clinician Unavailable JUSTIN AGGARWAL Admitting Clinician Unavailable ANDIE DOW Admitting Clinician Unavailable Geri Figueredo MD Admitting Clinician Arturo Juarez MD Admitting Clinician ARTURO JUAREZ Admitting Clinician Unavailable OMI BUCKLEY Admitting Clinician Unavailable Payers Payer Name Policy Type Policy Number Effective Date Expiration Date Anatoly avendano [facility] CASEBOOK [id number] 2021 2021 00:00:00 00:00:00 [facility] [id number] SENIOR LIVING 00:00:00 MEDICAID 365 [id number] 2021 2021 VENDOR 00:00:00 00:00:00 [facility] [place] [id number] 2020 WOMEN 00:00:00 MEDICAID PENDING PENDING 2020 00:00:00 Problems Condition Condition Condition Status Onset Resolution Last Treating Co mments Source Name Details Category Date Date Treatment Clinician Date 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 Added automatic ally from request for surgery [id number] Tooth pain Tooth pain Disease Active 2019-03 U nivers 1-22 ity of 00:00: [place] 00 Medical Branch E44.0 E44.0 Disease Active 2019-03 Univers Moderate Moderate 1-21 ity of protein protein 00:00: [place] calorie calorie 00 Medical malnutriti malnutriti Br anch on on Observed Observed Disease Active 2019-03 Unive rs seizure-li seizure-li 1-06 it y of ke ke 00:00: [place] activity activity 00 Medica l Branch Seizures Seizures Disease Active 2019-03 Unive rs 1-06 ity of 00:00: [place] 00 Medical Branch Sciatica Sciatica Disease Active Unive rs of left of left 8-13 ity of side side 00:00: [place] 00 Medical Branch Rectal Rectal Disease Active Univers adenocarci adenocarci 6-09 it y of noma noma 00:00: [place] 00 Medical [place] Allergies, Adverse Reactions, Alerts Allergy Allergy Status Severity Reaction(s) Onset Inactive Treating Comm ents Source Name Type Date Date Clinician Alexia Propensi Active Extra 2019-03 Univer s tin ty to pyramidal 2-08 ity of adverse effects 00:00: [place] reaction 00 Medical s to Branch drug OXALIPLA DRUG Active EP Effects 2019-03 Univ ers TIN INGREDI 2-08 ity of 00:00: [place] 00 Medical Branch NO KNOWN Drug Active Univers ALLERGIE Class ity of S [facility] Social History Social Habit Start Date Stop Date Quantity Comments Source History of tobacco Cigarette Smoker University of use [facility] Sex Assigned At Universit y of [facility] Exposure to 2022-03-30 2022-04-09 Not sure University of SARS-CoV-2 (event) 00:00:00 09:46:00 [facility] Tobacco use and 2021-10-02 2021-10-02 Smokeless Universit y of exposure 00:00:00 00:00:00 tobacco non-user [facility] dical [place] Tobacco Comment 2021-10-02 2021-10-02 1ppd Universit y of 00:00:00 00:00:00 [place] [facility] History SDSC 2020-02-03 2020-02-03 1 University o f Financial 00:00:00 00:00:00 [facility] Education 2020-02-03 2020-02-03 16 University of 00:00:00 00:00:00 [place] [facility] History [facility] Food 2019-12-06 2019-12-06 1 Univers ity of Worry 00:00:00 00:00:00 [place] [facility] History SDSC Food 2019-12-06 2019-12-06 1 Univers ity of Scarcity 00:00:00 00:00:00 [place] [facility] History SDOH 2019-12-06 2019-12-06 2 University o f Transport Med 00:00:00 00:00:00 [place] Medic al Branch History SDOH 2019-12-06 2019-12-06 2 University o f Transport Non-Med 00:00:00 00:00:00 [facility] edical Branch Cigarettes smoked 2019-11-29 2019-11-29 Univers ity of current (pack per 00:00:00 00:00:00 [facility] ) - Reported Branch Cigarette 2019-11-29 2019-11-29 University of pack-years 00:00:00 00:00:00 [facility] Alcohol intake 2019-11-29 2019-11-29 Ex-drinker [facility] 00:00:00 00:00:00 (finding) [facility] Smoking Status Start Date Stop Date Source Smokes tobacco daily 2021-10-02 00:00:00 Univers ity of [facility] Medications Ordered Filled Start Stop Current Ordering Indication Dosage Frequency Signature Comments Components Source Medication Medication Date Date Medication? Clinician (SIG) Name Name No known No No known Unive rs medications 04-13 medication it y of 01:19: s [address] No known No No known Unive rs medications 04-13 medication it y of :19: s [address] gadobenate 2022- No [id number] .2mL/kg 0.2 mL/kg, Univers dimeglumine 03-26 Intravenou i ty of (MULTIHANCE 16:00: 15:50 s, ONCE, 1 [place] -15 mL) 00 :00 dose, On Medical injection [facility] Branch 0.2 mL/kg 03/26/22 at 1000, Routine iopamidol 2021-03- No [id number] 99mL 99 mL, Univers (ISOVUE 30 -30 Intravenou ity o f 370-500 mL) 18:30: 17:38 s, ONCE, 1 [place] injection 00 :00 dose, On Medica l 99 mL [facility] Branch 03/14/22 at 1230, Routine No known 2021-03 No No known Unive rs medications 2-18 medication it y of 15:28: s [address] No known 2021-03 No No known Unive rs medications 2-18 medication it y of 15:28: s [address] No known 2021-03 No No known Unive rs medications 2-18 medication it y of 15:28: s [address] No known 2021-03 No No known Unive rs medications 2-18 medication it y of 15:28: s [address] No known 2021-03 No No known Unive rs medications 2-18 medication it y of 15:28: s [place] 29 Medical Branch PARoxetine 2021-0 Yes [id number] 20mg Take 1 U nivers 20 mg 5-03 tablet by ity of tablet 00:00: mouth [place] 00 daily. Medical Branch PARoxetine 2021-0 Yes [id number] 20mg Take 1 U nivers 20 mg 5-03 tablet by ity of tablet 00:00: mouth [place] 00 daily. Medical Branch PARoxetine 2021-0 Yes [id number] 20mg Take 1 U nivers 20 mg 5-03 tablet by ity of tablet 00:00: mouth [place] 00 daily. Medical Branch PARoxetine Yes [id number] 20mg Take 1 U nivers 20 mg 5-03 tablet by ity of tablet 00:00: mouth [place] 00 daily. Medical Branch PARoxetine 0 Yes [id number] 20mg Take 1 U nivers 20 mg 5-03 tablet by ity of tablet 00:00: mouth [place] 00 daily. Medical Branch PARoxetine 0 Yes [id number] 20mg Take 1 U nivers 20 mg 5-03 tablet by ity of tablet 00:00: mouth [place] 00 daily. Medical Branch PARoxetine 2021- No [id number] 20mg Take 1 Univers 20 mg 5-03 12-18 tablet by ity of tablet 00:00: 00:00 mouth [place] 00 :00 daily. Medical Branch PARoxetine 0 2021- No [id number] 20mg Take 1 Univers 20 mg 5-03 12-18 tablet by ity of tablet 00:00: 00:00 mouth [place] 00 :00 daily. Medical Branch PARoxetine 0 2021- No [id number] 20mg Take 1 Univers 20 mg 5-03 12-18 tablet by ity of tablet 00:00: 00:00 mouth [place] 00 :00 daily. Medical Branch proCHLORper 2021-0 Yes [id number] 10mg Take 1 Univers azine 4-12 tablet by ity of (COMPAZINE) 00:00: mouth [place] 10 mg 00 every 6 Medical tablet (six) Branch hours as needed for Nausea and Vomiting (N/V) for up to 30 doses. proCHLORper 2021-0 Yes [id number] 10mg Take 1 Univers azine 4-12 tablet by ity of (COMPAZINE) 00:00: mouth [place] 10 mg 00 every 6 Medical tablet (six) Branch hours as needed for Nausea and Vomiting (N/V) for up to 30 doses. proCHLORper 2022-0 Yes [id number] 10mg Take 1 Univers azine 4-12 tablet by ity of (COMPAZINE) 00:00: mouth [place] 10 mg 00 every 6 Medical tablet (six) Branch hours as needed for Nausea and Vomiting (N/V) for up to 30 doses. proCHLORper 2022-0 Yes [id number] 10mg Take 1 Univers azine 4-12 tablet by ity of (COMPAZINE) 00:00: mouth [place] 10 mg 00 every 6 Medical tablet (six) Branch hours as needed for Nausea and Vomiting (N/V) for up to 30 doses. proCHLORper 2022-0 Yes [id number] 10mg Take 1 Univers azine 4-12 tablet by ity of (COMPAZINE) 00:00: mouth [place] 10 mg 00 every 6 Medical tablet (six) Branch hours as needed for Nausea and Vomiting (N/V) for up to 30 doses. proCHLORper 2022-0 Yes [id number] 10mg Take 1 Univers azine 4-12 tablet by ity of (COMPAZINE) 00:00: mouth [place] 10 mg 00 every 6 Medical tablet (six) Branch hours as needed for Nausea and Vomiting (N/V) for up to 30 doses. proCHLORper 2022-0 2- No [id number] 10mg Take 1 Univers azine 4-12 12-18 tablet by ity of (COMPAZINE) 00:00: 00:00 [place] 10 mg 00 :00 every 6 Medical tablet (six) Branch hours as needed for Nausea and Vomiting (N/V) for up to 30 doses. proCHLORper 2022-0 2- No [id number] 10mg Take 1 Univers azine 4-12 12-18 tablet by ity of (COMPAZINE) 00:00: 00:00 [place] 10 mg 00 :00 every 6 Medical tablet (six) Branch hours as needed for Nausea and Vomiting (N/V) for up to 30 doses. proCHLORper 2022-0 2- No [id number] 10mg Take 1 Univers azine 4-12 12-18 tablet by ity of (COMPAZINE) 00:00: 00:00 [place] 10 mg 00 :00 every 6 Medical tablet (six) Branch hours as needed for Nausea and Vomiting (N/V) for up to 30 doses. clonazePAM 2022-0 Yes [id number] .5mg Take 1 U nivers 0.5 mg 4-11 tablet by ity of tablet 00:00: mouth [place] (two) Medical times Branch daily. clonazePAM 2022-0 Yes [id number] .5mg Take 1 U nivers 0.5 mg 4-11 tablet by ity of tablet 00:00: mouth [place] (two) Medical times Branch daily. clonazePAM 2022-0 Yes [id number] .5mg Take 1 U nivers 0.5 mg 4-11 tablet by ity of tablet 00:00: mouth [place] (two) Medical times Branch daily. clonazePAM 2022-0 Yes [id number] .5mg Take 1 U nivers 0.5 mg 4-11 tablet by ity of tablet 00:00: mouth [place] (two) Medical times Branch daily. clonazePAM 2022-0 Yes [id number] .5mg Take 1 U nivers 0.5 mg 4-11 tablet by ity of tablet 00:00: mouth [place] (two) Medical times Branch daily. clonazePAM 2022-0 Yes [id number] .5mg Take 1 U nivers 0.5 mg 4-11 tablet by ity of tablet 00:00: mouth [place] (two) Medical times Branch daily. clonazePAM 2022-0 2022- No [id number] .5mg Take 1 Univers 0.5 mg 4-11 12-18 tablet by ity of tablet 00:00: 00:[address] [place] [address] 00 :00 (two) Medical times Branch daily. clonazePAM 2022-0 2022- No [id number] .5mg Take 1 Univers 0.5 mg 4-11 12-18 tablet by ity of tablet 00:00: 00:00 mouth 2 [place] 00 :00 (two) Medical times Branch daily. clonazePAM 2022-0 2022- No [id number] .5mg Take 1 Univers 0.5 mg 4-11 12-18 tablet by ity of tablet 00:00: 00:00 mouth 2 [place] 00 :00 (two) Medical times Branch daily. neomycin 2020-0 2020- No [id number] 1000mg Take 2 Univers 500 mg 9-20 -22 tablets by ity of tablet 00:00: 04:59 mouth [place] 00 :00 every 4 Medical (four) Branch hours for 3 doses. Erythromyci 2020-0 2020- No [id number] 1g Take 1 g Univers n 333 mg -03 12-22 by mouth ity of TbEC 00:00: 04:59 every 4 [place] 00 :00 (four) Medical hours for Branch 3 doses. neomycin 2020-0 2020- No [id number] 1000mg Take 2 Univers 500 mg -03 12-22 tablets by ity of tablet 00:00: 04:59 mouth [place] 00 :00 every 4 Medical (four) Branch hours for 3 doses. Erythromyci 2020-0 2020- No [id number] 1g Take 1 g Univers n 333 mg -03 12- by mouth ity of TbEC 00:00: 04:59 every 4 [place] 00 :00 (four) Medical hours for Branch 3 doses. neomycin 2020-0 2020- No [id number] 1000mg Take 2 Univers 500 mg -03 12-22 tablets by ity of tablet 00:00: 04:59 mouth [place] 00 :00 every 4 Medical (four) Branch hours for 3 doses. Erythromyci 2020-0 2020- No [id number] 1g Take 1 g Univers n 333 mg -03 12- by mouth ity of TbEC 00:00: 04:59 every 4 [place] 00 :00 (four) Medical hours for Branch 3 doses. peg-electro 2020-0 2020- No [id number] 4000mL Take 4,000 Univers lyte soln - 09-20 mL by ity of (GOLYTELY) 00:00: 04:59 mouth once [place] [id number] 00 :00 now for 1 Med ical .74 -5.86 dose. Branch gram solution peg-electro 2020-0 2020- No [id number] 4000mL Take 4,000 Univers lyte soln 9-19 09-20 mL by ity of (GOLYTELY) 00:00: 04:59 mouth once [place] [id number] 00 :00 now for 1 Med ical .74 -5.86 dose. Branch gram solution peg-electro 2020-0 2020- No [id number] 4000mL Take 4,000 Univers lyte soln 9-19 09-20 mL by ity of (GOLYTELY) 00:00: 04:59 mouth once [place] [id number] 00 :00 now for 1 Med ical .74 -5.86 dose. Branch gram solution morpHINE 2020-0 2020- No 4mg 4 mg, Slow Un yonatan injection 4 11-29 IV Push, ity of mg 07:00: 07:12 ONCE, 1 [place] 00 :00 dose, [facility] Medical 11/30/19 at Branch 0200, STAT ondansetron 2019-0 2020- No 4mg 4 mg, Slow Univers (ZOFRAN 11-29 IV Push, ity of (PF)) 05:30: 04:30 ONCE, 1 [place] injection 4 00 :00 dose, Thu Med ical mg 11/30/19 at Branch 0030, MARY morpHINE 2020-0 2020- No 4mg 4 mg, Slow Un yonatan injection 4 11-29 IV Push, ity of mg 05:00: 04:15 ONCE, 1 [place] 00 :00 dose, [facility] Medical 11/30/19 at Branch 0000, STAT morphine ER 2020-0 Yes [id number] 15mg Take 1 Univ ers 15 mg 12 hr 9-16 tablet by ity of tablet 00:00: mouth [place] 00 every 12 Medical (twelve) Branch hours. Indication s: acute pain morphine IR 2020-0 Yes [id number] 15mg Take 1 Univ ers 15 mg 9-16 tablet by ity of tablet 00:00: mouth [place] 00 every 4 Medical (four) Branch hours as needed for Pain (scale 7-10). Indication s: acute pain morphine ER 2020-0 Yes [id number] 15mg Take 1 Univ ers 15 mg 12 hr 9-16 tablet by ity of tablet 00:00: mouth [place] 00 every 12 Medical (twelve) Branch hours. Indication s: acute pain morphine IR 2020-0 Yes [id number] 15mg Take 1 Univ ers 15 mg 9-16 tablet by ity of tablet 00:00: mouth [place] 00 every 4 Medical (four) Branch hours as needed for Pain (scale 7-10). Indication s: acute pain morphine ER 2020-0 Yes [id number] 15mg Take 1 Univ ers 15 mg 12 hr 9-16 tablet by ity of tablet 00:00: mouth [place] 00 every 12 Medical (twelve) Branch hours. Indication s: acute pain morphine IR 2020-0 Yes [id number] 15mg Take 1 Univ ers 15 mg 9-16 tablet by ity of tablet 00:00: mouth [place] 00 every 4 Medical (four) Branch hours as needed for Pain (scale 7-10). Indication s: acute pain morpHINE 10 2019-2019- No 10mg Unive rs mg/5 mL 11-28 ity of oral 21:45: 19:00 [place] solution 10 00 :00 Medical mg Branch morpHINE 10 2019- 2020- No 10mg 10 mg, Uni vers mg/5 mL 11-28 Oral, ity of oral 21:45: 19:00 ONCE, 1 [place] solution 10 00 :00 dose, Tue Med ical mg 11/29/19 at Branch 1645, Routine ciprofloxac 2019- 2020- No [id number] 500mg Take 1 Univers in HCl 500 11-28 tablet by ity of mg tablet 00:00: 04:59 mouth [place] 00 :00 every 12 Medical (twelve) Branch hours for 7 days. clindamycin 2019- 2020- No [id number] 300mg Take 1 Univers 300 mg 11-28 capsule by ity of capsule 00:00: 04:59 mouth 4 [place] 00 :00 (four) Medical times Branch daily for 7 days. ciprofloxac 2019-0 2020- No [id number] 500mg Take 1 Univers in HCl 500 11-28 tablet by ity of mg tablet 00:00: 04:59 mouth [place] 00 :00 every 12 Medical (twelve) Branch hours for 7 days. clindamycin 2020-0 2020- No [id number] 300mg Take 1 Univers 300 mg 11-28 capsule by ity of capsule 00:00: 04:59 mouth 4 [place] 00 :00 (four) Medical times Branch daily for 7 days. ciprofloxac 2020-0 2020- No [id number] 500mg Take 1 Univers in HCl 500 11-28 tablet by ity of mg tablet 00:00: 04:59 mouth [place] 00 :00 every 12 Medical (twelve) Branch hours for 7 days. clindamycin 2020-0 2020- No [id number] 300mg Take 1 Univers 300 mg 11-28 capsule by ity of capsule 00:00: 04:59 mouth 4 [place] 00 :00 (four) Medical times Branch daily for 7 days. ciprofloxac 2020-0 2020- No [id number] 500mg Take 1 Univers in HCl 500 11-28 tablet by ity of mg tablet 00:00: 04:59 mouth [place] 00 :00 every 12 Medical (twelve) Branch hours for 7 days. clindamycin 2019-0 2020- No [id number] 300mg Take 1 Univers 300 mg 11-28 capsule by ity of capsule 00:00: 04:59 mouth 4 [place] 00 :00 (four) Medical times Branch daily for 7 days. morphine ER 2020-0 2020- No [id number] 15mg Take 1 Uni vers 15 mg 12 hr -15 -16 tablet by it y of tablet 00:00: 00:00 mouth [place] 00 :00 every 12 Medical (twelve) Branch hours for 7 days. Indication s: acute pain morphine IR 2020-0 2020- No [id number] 15mg Take 1 Uni vers 15 mg 11-28-16 tablet by ity of tablet 00:00: 00:00 mouth [place] 00 :00 every 4 Medical (four) Branch hours as needed for Pain (scale 7-10) for up to 7 days. Indication s: acute pain morphine ER 2020-0 2019- No [id number] 15mg Take 1 Uni vers 15 mg 12 hr 11-2816 tablet by it y of tablet 00:00: 00:00 mouth [place] 00 :00 every 12 Medical (twelve) Branch hours for 7 days. Indication s: acute pain morphine IR 2020-0 2019- No [id number] 15mg Take 1 Uni vers 15 mg 11-28-16 tablet by ity of tablet 00:00: 00:00 mouth [place] 00 :00 every 4 Medical (four) Branch hours as needed for Pain (scale 7-10) for up to 7 days. Indication s: acute pain clindamycin 2020-0 2020- No [id number] 300mg Take 1 Univers 300 mg 9-12 22- capsule by ity of capsule 00:00: 04:59 mouth [place] 00 :00 every 6 Medical (six) Branch hours for 10 days. clindamycin 2020-0 2020- No [id number] 300mg Take 1 Univers 300 mg 9-10 - capsule by ity of capsule 00:00: 04:59 mouth [place] 00 :00 every 6 Medical (six) Branch hours for 10 days. clindamycin 2020-0 2020- No [id number] 300mg Take 1 Univers 300 mg 9-12 22-21 capsule by ity of capsule 00:00: 04:59 mouth [place] 00 :00 every 6 Medical (six) Branch hours for 10 days. clindamycin 2020-0 2020- No [id number] 300mg Take 1 Univers 300 mg 9-12 22-21 capsule by ity of capsule 00:00: 04:59 mouth [place] 00 :00 every 6 Medical (six) Branch hours for 10 days. clindamycin 2020-0 2020- No [id number] 300mg Take 1 Univers 300 mg 9-10 -21 capsule by ity of capsule 00:00: 04:59 mouth [place] 00 :00 every 6 Medical (six) Branch hours for 10 days. clindamycin 2020-0 2020- No [id number] 300mg Take 1 Univers 300 mg 9-12 22-21 capsule by ity of capsule 00:00: 04:59 mouth [place] 00 :00 every 6 Medical (six) Branch hours for 10 days. clindamycin 2020-0 2020- No [id number] 300mg Take 1 Univers 300 mg 9-12 22-21 capsule by ity of capsule 00:00: 04:59 mouth [place] 00 :00 every 6 Medical (six) Branch hours for 10 days. clindamycin 2020-0 2020- No [id number] 300mg Take 1 Univers 300 mg 9-12 22-21 capsule by ity of capsule 00:00: 04:59 mouth [place] 00 :00 every 6 Medical (six) Branch hours for 10 days. clindamycin 2020-0 2020- No [id number] 300mg Take 1 Univers 300 mg 9-12 22-21 capsule by ity of capsule 00:00: 04:59 mouth [place] 00 :00 every 6 Medical (six) Branch hours for 10 days. clindamycin 2020-0 2020- No [id number] 300mg Take 1 Univers 300 mg 9-10 -21 capsule by ity of capsule 00:00: 04:59 mouth [place] 00 :00 every 6 Medical (six) Branch hours for 10 days. clindamycin 2020-0 2020- No [id number] 300mg Take 1 Univers 300 mg 9-10 -21 capsule by ity of capsule 00:00: 04:59 mouth [place] 00 :00 every 6 Medical (six) Branch hours for 10 days. clindamycin 2020-0 2020- No [id number] 300mg Take 1 Univers 300 mg 9-10 09-21 capsule by ity of capsule 00:00: 04:59 mouth [place] 00 :00 every 6 Medical (six) Branch hours for 10 days. clindamycin 2020-0 2020- No [id number] 300mg Take 1 Univers 300 mg 9-10 -21 capsule by ity of capsule 00:00: 04:59 mouth [place] 00 :00 every 6 Medical (six) Branch hours for 10 days. clindamycin 2020-0 2020- No [id number] 300mg Take 1 Univers 300 mg 9-10 -21 capsule by ity of capsule 00:00: 04:59 mouth [place] 00 :00 every 6 Medical (six) Branch hours for 10 days. acetaminoph 2020-0 Yes [id number] 1{tbl} Take 1 Un yonatan en-codeine 9-01 tablet by ity of 300-30 mg 00:00: mouth [place] tablet 00 every 6 Medical (six) Branch hours as needed for Pain (scale 4-6). Indication s: acute pain acetaminoph 2020-0 Yes [id number] 1{tbl} Take 1 Un [place]onatan en-codeine 9-01 tablet by ity of 300-30 mg 00:00: mouth [place] tablet 00 every 6 Medical (six) Branch hours as needed for Pain (scale 4-6). Indication s: acute pain acetaminoph 2020-0 Yes [id number] 1{tbl} Take 1 Un [place]onatan en-codeine 9-01 tablet by ity of 300-30 mg 00:00: mouth [place] tablet 00 every 6 Medical (six) Branch hours as needed for Pain (scale 4-6). Indication s: acute pain acetaminoph 2020-0 Yes [id number] 1{tbl} Take 1 Un yonatan en-codeine 9-01 tablet by ity of 300-30 mg 00:00: mouth [place] tablet 00 every 6 Medical (six) Branch hours as needed for Pain (scale 4-6). Indication s: acute pain acetaminoph 2020-0 Yes [id number] 1{tbl} Take 1 Un yonatan en-codeine 9-01 tablet by ity of 300-30 mg 00:00: mouth [place] tablet 00 every 6 Medical (six) Branch hours as needed for Pain (scale 4-6). Indication s: acute pain acetaminoph 2020-0 Yes [id number] 1{tbl} Take 1 Un yonatan en-codeine 9-01 tablet by ity of 300-30 mg 00:00: mouth [place] tablet 00 every 6 Medical (six) Branch hours as needed for Pain (scale 4-6). Indication s: acute pain acetaminoph 2020-0 Yes [id number] 1{tbl} Take 1 Un yonatan en-codeine 9-01 tablet by ity of 300-30 mg 00:00: mouth [place] tablet 00 every 6 Medical (six) Branch hours as needed for Pain (scale 4-6). Indication s: acute pain acetaminoph 2020-0 Yes 4647 1{tbl} Take 1 Un yonatan en-codeine 9-01 tablet by ity of 300-30 mg 00:00: mouth [place] tablet 00 every 6 Medical (six) Branch hours as needed for Pain (scale 4-6). Indication s: acute pain acetaminoph 2020-0 Yes 4647 1{tbl} Take 1 Un [facility] en-codeine 9-01 tablet by ity of 300-30 mg 00:00: mouth [place] tablet 00 every 6 Medical (six) Branch hours as needed for Pain (scale 4-6). Indication s: acute pain acetaminoph 2020-0 Yes 4647 1{tbl} Take 1 Un [facility] en-codeine 9-01 tablet by ity of 300-30 mg 00:00: mouth [place] tablet 00 every 6 Medical (six) Branch hours as needed for Pain (scale 4-6). Indication s: acute pain acetaminoph 2020-0 Yes 4647 1{tbl} Take 1 Un [facility] en-codeine 9-01 tablet by ity of 300-30 mg 00:00: mouth [place] tablet 00 every 6 Medical (six) Branch hours as needed for Pain (scale 4-6). Indication s: acute pain acetaminoph 2020-0 Yes 4647 1{tbl} Take 1 Un [facility] en-codeine 9-01 tablet by ity of 300-30 mg 00:00: mouth [place] tablet 00 every 6 Medical (six) Branch hours as needed for Pain (scale 4-6). Indication s: acute pain acetaminoph 2020-0 Yes 4647 1{tbl} Take 1 Un [facility] en-codeine 9-01 tablet by ity of 300-30 mg 00:00: mouth [place] tablet 00 every 6 Medical (six) Branch hours as needed for Pain (scale 4-6). Indication s: acute pain acetaminoph 2020-0 Yes 4647 1{tbl} Take 1 Un [facility] en-codeine 9-01 tablet by ity of 300-30 mg 00:00: mouth [place] tablet 00 every 6 Medical (six) Branch hours as needed for Pain (scale 4-6). Indication s: acute pain acetaminoph 2020-0 Yes 4647 1{tbl} Take 1 Un [facility] en-codeine 9-01 tablet by ity of 300-30 mg 00:00: mouth [place] tablet 00 every 6 Medical (six) Branch hours as needed for Pain (scale 4-6). Indication s: acute pain acetaminoph 2020-0 Yes 4647 1{tbl} Take 1 Un [facility] en-codeine 9-01 tablet by ity of 300-30 mg 00:00: mouth [place] tablet 00 every 6 Medical (six) Branch hours as needed for Pain (scale 4-6). Indication s: acute pain acetaminoph 2020-0 Yes 4647 1{tbl} Take 1 Un [facility] en-codeine 9-01 tablet by ity of 300-30 mg 00:00: mouth [place] tablet 00 every 6 Medical (six) Branch hours as needed for Pain (scale 4-6). Indication s: acute pain acetaminoph 2020-0 Yes 4647 1{tbl} Take 1 Un [facility] en-codeine 9-01 tablet by ity of 300-30 mg 00:00: mouth [place] tablet 00 every 6 Medical (six) Branch hours as needed for Pain (scale 4-6). Indication s: acute pain acetaminoph 2020-0 Yes 4647 1{tbl} Take 1 Un [facility] en-codeine 9-01 tablet by ity of 300-30 mg 00:00: mouth [place] tablet 00 every 6 Medical (six) Branch hours as needed for Pain (scale 4-6). Indication s: acute pain contrast 2020-0 2020- No Intravenou Un yonatan previously 11-10 s, ONCE, 1 it y of administere 20:30: 19:31 dose, Fri [place] d 0 mL 00 :00 11/11/19 at Medical 1530, Branch Routine iohexol 2020-0 2020- No 120mL 120 mL, Unive rs (OMNIPAQUE 11-10 Intravenou it y of 350 20:15: 19:31 s, ONCE, 1 [place] BULK-150 00 :00 dose, Fri Medica l mL) 11/11/19 at Branch injection 1515, 120 mL Routine iohexol 2020-0 2020- No 25mL 25 mL, Univers (OMNIPAQUE 11-10 Oral, ity of 350 BULK) 18:30: 18:25 ONCE, 1 [place] 25 mL 00 :00 dose, Fri Medical 11/11/19 at Branch 1330, Routine clindamycin 2020-0 Yes 300mg Take 300 U nivers 300 mg 8-27 mg by ity of capsule 00:00: mouth [place] 00 every 6 Medical (six) Branch hours. clindamycin 2020-0 Yes 300mg Take 300 U nivers 300 mg 8-27 mg by ity of capsule 00:00: mouth [place] 00 every 6 Medical (six) Branch hours. clindamycin 2020-0 Yes 300mg Take 300 U nivers 300 mg 8-27 mg by ity of capsule 00:00: mouth [place] 00 every 6 Medical (six) Branch hours. clindamycin 2020-0 Yes 300mg Take 300 U nivers 300 mg 8-27 mg by ity of capsule 00:00: mouth [place] 00 every 6 Medical (six) Branch hours. clindamycin 2020-0 Yes 300mg Take 300 U nivers 300 mg 8-27 mg by ity of capsule 00:00: mouth [place] 00 every 6 Medical (six) Branch hours. clindamycin 2020-0 Yes 300mg Take 300 U nivers 300 mg 8-27 mg by ity of capsule 00:00: mouth [place] 00 every 6 Medical (six) Branch hours. clindamycin 2020-0 Yes 300mg Take 300 U nivers 300 mg 8-27 mg by ity of capsule 00:00: mouth [place] 00 every 6 Medical (six) Branch hours. clindamycin 2020-0 Yes 300mg Take 300 U nivers 300 mg 8-27 mg by ity of capsule 00:00: mouth [place] 00 every 6 Medical (six) Branch hours. clindamycin 2020-0 Yes 300mg Take 300 U nivers 300 mg 8-27 mg by ity of capsule 00:00: mouth [place] 00 every 6 Medical (six) Branch hours. clindamycin 2020-0 Yes 300mg Take 300 U nivers 300 mg 8-27 mg by ity of capsule 00:00: mouth [place] 00 every 6 Medical (six) Branch hours. clindamycin 2019-0 2020- No 300mg Take 300 Univers 300 mg 11-09 09-15 mg by ity of capsule 00:00: 00:00 mouth [place] 00 :00 every 6 Medical (six) Branch hours. gadoteridol 2020-0 2020- No .2mL/kg 0.2 mL/kg, Univers (PROHANCE-1 11-07 Intravenou i ty of 5 mL) 16:30: 16:30 s, ONCE, 1 [place] injection 00 :00 dose, Tue Medic al 0.2 mL/kg 11/08/19 at [facility] 1130, Routine FENTanyl PF 2019- 2020- No Slow IV Un yonatan (SUBLIMAZE 10-30 Push, PRN, it y of (PF)) 16:27: 16:35 Starting [place] injection 35 :38 Mon Medical 10/31/19 at [place] [address], Until Discontinu ed, Routine midazolam 2019-0 2020- No IV Push, Uni vers (VERSED) 10-30 PRN, ity of injection 16:27: 16:35 Starting [place] as 30 :35 Mon Medical 10/31/19 at [place] [address], Until Discontinu ed, Routine ceFAZolin 2019-0 2020- No Slow IV Univ ers (ANCEF) 10-30 Push, PRN, ity o f injection 16:27: 16:27 Starting [place] as 12 :12 [facility] Medical 10/31/19 at [place] [address], Until Discontinu ed, MARY ciprofloxac 2019- 2020- No 500mg Take 1 Un yonatan in HCl 500 10-30 tablet by ity of mg tablet 00:00: 04:59 mouth [place] 00 :00 every 12 Medical (twelve) Branch hours for 7 days. acetaminoph 2020-0 Yes TAKE 1 Univ ers en-codeine 8-03 TABLET BY ity of 300-30 mg 00:00: MOUTH [place] tablet 00 EVERY 6 Medical HOURS Branch NEEDED FOR PAIN acetaminoph 2020-0 Yes TAKE 1 Univ ers en-codeine 8-03 TABLET BY ity of 300-30 mg 00:00: MOUTH [place] tablet 00 EVERY 6 Medical HOURS Branch NEEDED FOR PAIN acetaminoph 2020-0 Yes TAKE 1 Univ ers en-codeine 8-03 TABLET BY ity of 300-30 mg 00:00: MOUTH [place] tablet 00 EVERY 6 Medical HOURS Branch NEEDED FOR PAIN acetaminoph 2020-0 Yes TAKE 1 Univ ers en-codeine 8-03 TABLET BY ity of 300-30 mg 00:00: MOUTH [place] tablet 00 EVERY 6 Medical HOURS Branch NEEDED FOR PAIN acetaminoph 2020-0 Yes TAKE 1 Univ ers en-codeine 8-03 TABLET BY ity of 300-30 mg 00:00: MOUTH [place] tablet 00 EVERY 6 Medical HOURS Branch NEEDED FOR PAIN acetaminoph 2020-0 Yes TAKE 1 Univ ers en-codeine 8-03 TABLET BY ity of 300-30 mg 00:00: MOUTH [place] tablet 00 EVERY 6 Medical HOURS Branch NEEDED FOR PAIN acetaminoph 2020-0 Yes TAKE 1 Univ ers en-codeine 8-03 TABLET BY ity of 300-30 mg 00:00: MOUTH [place] tablet 00 EVERY 6 Medical HOURS Branch NEEDED FOR PAIN acetaminoph 2020-0 Yes TAKE 1 Univ ers en-codeine 8-03 TABLET BY ity of 300-30 mg 00:00: MOUTH [place] tablet 00 EVERY 6 Medical HOURS Branch NEEDED FOR PAIN acetaminoph 2020-0 Yes TAKE 1 Univ ers en-codeine 8-03 TABLET BY ity of 300-30 mg 00:00: MOUTH [place] tablet 00 EVERY 6 Medical HOURS Branch NEEDED FOR PAIN acetaminoph 2020-0 Yes TAKE 1 Univ ers en-codeine 8-03 TABLET BY ity of 300-30 mg 00:00: MOUTH [place] tablet 00 EVERY 6 Medical HOURS Branch NEEDED FOR PAIN acetaminoph 2020-0 Yes TAKE 1 Univ ers en-codeine 8-03 TABLET BY ity of 300-30 mg 00:00: MOUTH [place] tablet 00 EVERY 6 Medical HOURS Branch NEEDED FOR PAIN acetaminoph 2020-0 2020- No TAKE 1 Uni vers en-codeine 8-03 - TABLET BY ity of 300-30 mg 00:00: 00:00 MOUTH [place] tablet 00 :00 EVERY 6 Medical HOURS Branch NEEDED FOR PAIN acetaminoph 2020-0 2020- No TAKE 1 Uni vers en-codeine 8-03 - TABLET BY ity of 300-30 mg 00:00: 00:00 MOUTH [place] tablet 00 :00 EVERY 6 Medical HOURS Branch NEEDED FOR PAIN acetaminoph 2020-0 2020- No TAKE 1 Uni vers en-codeine 10-16 TABLET BY ity of 300-30 mg 00:00: 00:00 MOUTH [place] tablet 00 :00 EVERY 6 Medical HOURS Branch NEEDED FOR PAIN acetaminoph 2019-0 2020- No TAKE 1 Uni vers en-codeine 10-16 TABLET BY ity of 300-30 mg 00:00: 00:00 MOUTH [place] tablet 00 :00 EVERY 6 Medical HOURS Branch NEEDED FOR PAIN acetaminoph 2019-0 2020- No TAKE 1 Uni vers en-codeine 10-16 TABLET BY ity of 300-30 mg 00:00: 00:00 MOUTH [place] tablet 00 :00 EVERY 6 Medical HOURS Branch NEEDED FOR PAIN BENEFIBER, 2019-0 Yes Take by [employer] WHEAT 08-22 mouth. ity of DEXTRIN, 19:07: Indication [place] ORAL 10 s: OTC Medical SUPPLEMENT Branch BENEFIBER, 2020-0 Yes Take by [employer] WHEAT 6 mouth. ity of DEXTRIN, 19:07: Indication [place] ORAL 10 s: OTC Medical SUPPLEMENT Branch BENEFIBER, 2019-0 Yes Take by [employer] WHEAT 6 mouth. ity of DEXTRIN, 19:07: Indication [place] ORAL 10 s: OTC Medical SUPPLEMENT Branch BENEFIBER, 2020-0 Yes Take by [employer] 6 mouth. ity of DEXTRIN, 19:07: Indication [place] ORAL 10 s: OTC Medical SUPPLEMENT Branch BENEFIBER, 2020-0 Yes Take by [employer] WHEAT 6 mouth. ity of DEXTRIN, 19:07: Indication [place] ORAL 10 s: OTC Medical SUPPLEMENT Branch BENEFIBER, 2020-0 Yes Take by [employer] WHEAT 6 mouth. ity of DEXTRIN, 19:07: Indication [place] ORAL 10 s: OTC Medical SUPPLEMENT Branch BENEFIBER, 2020-0 Yes Take by [employer] WHEAT 6 mouth. ity of DEXTRIN, 19:07: Indication [place] ORAL 10 s: OTC Medical SUPPLEMENT Branch BENEFIBER, 2020-0 Yes Take by [employer] WHEAT 6 mouth. ity of DEXTRIN, 19:07: Indication [place] ORAL 10 s: OTC Medical SUPPLEMENT Branch BENEFIBER, 2020-0 Yes Take by [employer] 6 mouth. ity of DEXTRIN, 19:07: Indication [place] ORAL 10 s: OTC Medical SUPPLEMENT Branch BENEFIBER, 2020-0 Yes Take by [facility] ers WHEAT 6-09 mouth. ity of DEXTRIN, 19:07: Indication [place] ORAL 10 s: OTC Medical SUPPLEMENT Branch BENEFIBER, 2020-0 Yes Take by [facility] ers WHEAT 6-09 mouth. ity of DEXTRIN, 19:07: Indication [place] ORAL 10 s: OTC Medical SUPPLEMENT Branch BENEFIBER, 2020-0 Yes Take by [facility] ers WHEAT 6-09 mouth. ity of DEXTRIN, 19:07: Indication [place] ORAL 10 s: OTC Medical SUPPLEMENT Branch BENEFIBER, 2020-0 Yes Take by Univ ers WHEAT 6-09 mouth. ity of DEXTRIN, 19:07: Indication [place] ORAL 10 s: OTC Medical SUPPLEMENT Branch BENEFIBER, 2019-0 Yes Take by [facility] ers WHEAT 6- mouth. ity of DEXTRIN, 19:07: Indication [place] ORAL 10 s: OTC Medical SUPPLEMENT Branch BENEFIBER, 2019-0 Yes Take by [facility] ers WHEAT 6- mouth. ity of DEXTRIN, 19:07: Indication [place] ORAL 10 s: OTC Medical SUPPLEMENT Branch BENEFIBER, 2019-0 Yes Take by Univ ers WHEAT 6-09 mouth. ity of DEXTRIN, 19:07: Indication [place] ORAL 10 s: OTC Medical SUPPLEMENT Branch BENEFIBER, 2019-0 Yes Take by [facility] ers WHEAT 6-09 mouth. ity of DEXTRIN, 19:07: Indication [place] ORAL 10 s: OTC Medical SUPPLEMENT Branch BENEFIBER, 2019-0 Yes Take by [facility] ers WHEAT 6-09 mouth. ity of DEXTRIN, 19:07: Indication [place] ORAL 10 s: OTC Medical SUPPLEMENT Branch BENEFIBER, 2019-0 Yes Take by Uni vers WHEAT 6-09 mouth. ity of DEXTRIN, 19:07: Indication [place] ORAL 10 s: OTC Medical SUPPLEMENT Branch BENEFIBER, 2020-0 Yes Take by [facility] ers WHEAT 6-09 mouth. ity of DEXTRIN, 19:07: Indication [place] ORAL 10 s: OTC Medical SUPPLEMENT Branch BENEFIBER, 2019-0 Yes Take by [facility] ers WHEAT 6-09 mouth. ity of DEXTRIN, 19:07: Indication [place] ORAL 10 s: OTC Medical SUPPLEMENT Branch BENEFIBER, 2020-0 Yes Take by [facility] ers WHEAT 6-09 mouth. ity of DEXTRIN, 19:07: Indication [place] ORAL 10 s: OTC Medical SUPPLEMENT Branch BENEFIBER, 2020-0 Yes Take by Univ ers WHEAT 6-09 mouth. ity of DEXTRIN, 19:07: Indication [place] ORAL 10 s: OTC Medical SUPPLEMENT Branch BENEFIBER, 2020-0 Yes Take by Univ ers WHEAT 6-09 mouth. ity of DEXTRIN, 19:07: Indication [place] ORAL 10 s: OTC Medical SUPPLEMENT Branch BENEFIBER, 2020-0 Yes Take by Univ ers WHEAT 6-09 mouth. ity of DEXTRIN, 19:07: Indication [place] ORAL 10 s: OTC Medical SUPPLEMENT Branch BENEFIBER, 2020-0 Yes Take by Univ ers WHEAT 6-09 mouth. ity of DEXTRIN, 19:07: Indication [place] ORAL 10 s: OTC Medical SUPPLEMENT Branch BENEFIBER, 2020-0 Yes Take by Univ ers WHEAT 6-09 mouth. ity of DEXTRIN, 19:07: Indication [place] ORAL 10 s: OTC Medical SUPPLEMENT Branch BENEFIBER, 2020-0 Yes Take by Univ ers WHEAT 6-09 mouth. ity of DEXTRIN, 19:07: Indication [place] ORAL 10 s: OTC Medical SUPPLEMENT Branch BENEFIBER, 2020-0 Yes Take by Univ ers WHEAT 6-09 mouth. ity of DEXTRIN, 19:07: Indication [place] ORAL 10 s: OTC Medical SUPPLEMENT Branch BENEFIBER, 2020-0 Yes Take by Univ ers WHEAT 6-09 mouth. ity of DEXTRIN, 19:07: Indication [place] as ORAL 10 s: OTC Medical SUPPLEMENT Branch BENEFIBER, 2020-0 Yes Take by Univ ers WHEAT 6-09 mouth. ity of DEXTRIN, 19:07: Indication [place] ORAL 10 s: OTC Medical SUPPLEMENT Branch BENEFIBER, 2020-0 Yes Take by Univ ers WHEAT 6-09 mouth. ity of DEXTRIN, 19:07: Indication [place] as ORAL 10 s: OTC Medical SUPPLEMENT Branch BENEFIBER, 2020-0 Yes Take by Univ ers WHEAT 6-09 mouth. ity of DEXTRIN, 19:07: Indication [place] ORAL 10 s: OTC Medical SUPPLEMENT Branch BENEFIBER, 2020-0 Yes Take by Univ ers WHEAT 6-09 mouth. ity of DEXTRIN, 19:07: Indication [place] ORAL 10 s: OTC Medical SUPPLEMENT Branch BENEFIBER, 2020-0 Yes Take by Univ ers WHEAT 6-09 mouth. ity of DEXTRIN, 19:07: Indication [place] as ORAL 10 s: OTC Medical SUPPLEMENT Branch BENEFIBER, 2020-0 Yes Take by Univ ers WHEAT 6-09 mouth. ity of DEXTRIN, 19:07: Indication [place] ORAL 10 s: OTC Medical SUPPLEMENT Branch BENEFIBER, 2020-0 Yes Take by Univ ers WHEAT 6-09 mouth. ity of DEXTRIN, 19:07: Indication [place] ORAL 10 s: OTC Medical SUPPLEMENT Branch BENEFIBER, 2020-0 Yes Take by Univ ers WHEAT 6-09 mouth. ity of DEXTRIN, 19:07: Indication [place] ORAL 10 s: OTC Medical SUPPLEMENT Branch BENEFIBER, 2020-0 Yes Take by Univ ers WHEAT 6-09 mouth. ity of DEXTRIN, 19:07: Indication [place] as ORAL 10 s: OTC Medical SUPPLEMENT Branch BENEFIBER, 2020-0 Yes Take by Univ ers WHEAT 6-09 mouth. ity of DEXTRIN, 19:07: Indication [place] as ORAL 10 s: OTC Medical SUPPLEMENT Branch BENEFIBER, 2020-0 Yes Take by Univ ers WHEAT 6-09 mouth. ity of DEXTRIN, 19:07: Indication [place] as ORAL 10 s: OTC Medical SUPPLEMENT Branch BENEFIBER, 2020-0 Yes Take by Univ ers WHEAT 6-09 mouth. ity of DEXTRIN, 19:07: Indication [place] as ORAL 10 s: OTC Medical SUPPLEMENT Branch BENEFIBER, 2020-0 Yes Take by Univ ers WHEAT 6-09 mouth. ity of DEXTRIN, 19:07: Indication [place] as ORAL 10 s: OTC Medical SUPPLEMENT Branch BENEFIBER, 2020-0 Yes Take by Univ ers WHEAT 6-09 mouth. ity of DEXTRIN, 19:07: Indication [place] as ORAL 10 s: OTC Medical SUPPLEMENT Branch BENEFIBER, 2020-0 Yes Take by Univ ers WHEAT 6-09 mouth. ity of DEXTRIN, 19:07: Indication [place] as ORAL 10 s: OTC Medical SUPPLEMENT Branch BENEFIBER, 2020-0 Yes Take by Univ ers WHEAT 6-09 mouth. ity of DEXTRIN, 19:07: Indication [place] as ORAL 10 s: OTC Medical SUPPLEMENT Branch BENEFIBER, 2020-0 Yes Take by Univ ers WHEAT 6-09 mouth. ity of DEXTRIN, 19:07: Indication [place] as ORAL 10 s: OTC Medical SUPPLEMENT Branch BENEFIBER, 2020-0 Yes Take by Univ ers WHEAT 6-09 mouth. ity of DEXTRIN, 19:07: Indication [place] ORAL 10 s: OTC Medical SUPPLEMENT Branch BENEFIBER, Yes Take by [facility] ers WHEAT 6-09 mouth. ity of DEXTRIN, 19:07: Indication [place] as ORAL 10 s: OTC Medical SUPPLEMENT Branch BENEFIBER, Yes Take by [facility] ers WHEAT 6-09 mouth. ity of DEXTRIN, 19:07: Indication [place] as ORAL 10 s: OTC Medical SUPPLEMENT Branch BENEFIBER, Yes Take by [facility] [place] [employer] WHEAT 6-09 mouth. ity of DEXTRIN, 19:07: Indication [place] as ORAL 10 s: OTC Medical SUPPLEMENT Branch BENEFIBER, Yes Take by [facility] [place] [employer] WHEAT 6-09 mouth. ity of DEXTRIN, 19:07: Indication [place] as ORAL 10 s: OTC Medical SUPPLEMENT Branch Vital Signs Vital Name Observation Time Observation Value Comments Source Systolic blood 2022-04-09 15:37:00 124 mm[Hg] Univer [facility]ity of [facility] Diastolic blood 2022-04-09 15:37:00 89 [facility]Hg[facility] 2022-04-09 15:32:00 96 /min [facility] Body temperature 2022-04-09 15:32:00 36.06 [facility] Respiratory rate 2022-04-09 15:32:00 18 /min [facility] Body height 2022-04-09 15:32:00 160 cm [facility] Body weight 2022-04-09 15:32:00 63.912 kg [facility] BMI 2022-04-09 15:32:00 24.96 kg/m2 [facility] Oxygen saturation in 2022-04-09 15:32:00 98 /min [facility] Arterial blood by [facility] Pulse oximetry Branch Systolic blood 2022-02-26 15:16:00 115 mm[Hg] Univer sity of [facility] Diastolic blood 2022-02-26 15:16:00 73 mm[Hg] Unive rsity of [facility] Heart rate 2022-02-26 15:16:00 90 /min [facility] Body temperature 2022-02-26 15:16:00 36.28 [place] [place] [facility] Respiratory rate 2022-02-26 15:16:00 16 /min [facility] [place] [facility] Body weight 2022-02-26 15:16:00 59.603 kg [facility] [place] [facility] BMI 2022-02-26 15:16:00 23.28 kg/m2 [facility] [place] [facility] Oxygen saturation in 2022-02-26 15:16:00 97 /min [facility] Arterial blood by [place] [facility] Pulse oximetry [facility] Systolic blood 2021-10-02 16:22:00 114 mm[Hg] Univer sity of [facility] [place] [facility] Diastolic blood 2021-10-02 16:22:00 76 mm[Hg] Unive rsity of [facility] [place] [facility] Heart rate 2021-10-02 16:22:00 92 /min [facility] [place] [facility] Body temperature 2021-10-02 16:22:00 35.78 [place] [facility] [place] [facility] Respiratory rate 2021-10-02 16:22:00 16 /min [facility] [place] [facility] Body height 2021-10-02 16:22:00 160 cm [facility] [place] [facility] Body weight 2021-10-02 16:22:00 51.801 kg [facility] [place] [facility] BMI 2021-10-02 16:22:00 20.23 kg/m2 [facility] [place] [facility] Oxygen saturation in 2021-10-02 16:22:00 99 /min University of Arterial blood by [facility] german Pulse oximetry Branch Systolic blood 2019-11-30 08:09:00 107 mm[Hg] Univer sity of [facility] [place] [facility] Diastolic blood 2019-11-30 08:09:00 64 mm[Hg] Unive rsity of [facility] [place] [facility] Heart rate 2019-11-30 08:09:00 68 /min [facility] [place] [facility] Respiratory rate 2019-11-30 08:09:00 14 /min [facility] ers[facility] [place] [facility] Oxygen saturation in 2019-11-30 08:09:00 98 /min University of Arterial blood by [place] [facility] Pulse oximetry Branch Body temperature 2019-11-30 00:24:00 36.17 [place] [facility] [place] [facility] Body weight 2019-11-30 00:24:00 48.997 kg [facility] [place] [facility] BMI 2019-11-30 00:24:00 18.54 kg/m2 [facility] [place] [facility] Systolic blood 2019-11-29 19:20:00 101 mm[Hg] Univer sity of [facility] [place] [facility] Diastolic blood 2019-11-29 19:20:00 76 mm[Hg] Unive rsity of [facility] [place] [facility] Heart rate 2019-11-29 19:20:00 76 /min [facility] [place] [facility] Body temperature 2019-11-29 19:20:00 37.33 [place] [facility] [place] [facility] Respiratory rate 2019-11-29 19:20:00 20 /min Univ [facility] [place] [facility] Oxygen saturation in 2019-11-29 19:20:00 98 /min University of Arterial blood by [facility] Pulse oximetry Branch Systolic blood 2019-11-24 20:45:00 98 mm[Hg] Univer sity of [facility] [place] [facility] Diastolic blood 2019-11-24 20:45:00 67 mm[Hg] Unive rsity of [facility] [place] [facility] Heart rate 2019-11-24 20:45:00 72 /min [facility] [place] [facility] Body temperature 2019-11-24 20:45:00 36.89 [place] [facility] [place] [facility] Body height 2019-11-24 20:45:00 160 cm [facility] [place] [facility] Body weight 2019-11-24 20:45:00 49.442 kg [facility] [place] [facility] BMI 2019-11-24 20:45:00 19.31 kg/m2 [facility] [place] [facility] Oxygen saturation in 2019-11-24 20:45:00 98 /min University of Arterial blood by [facility] Pulse oximetry Branch Systolic blood 2019-11-15 16:37:00 100 mm[Hg] Univer sity of [facility] [place] [facility] Diastolic blood 2019-11-15 16:37:00 67 mm[Hg] Unive rsity of [facility] [place] [facility] Heart rate 2019-11-15 16:37:00 70 /min [facility] [place] [facility] Body temperature 2019-11-15 16:37:00 37.22 [place] [facility] [place] [facility] Body height 2019-11-15 16:37:00 160 cm [facility] [place] [facility] Body weight 2019-11-15 16:37:00 49.85 kg [facility] [place] [facility] BMI 2019-11-15 16:37:00 19.47 kg/m2 [facility] [place] [facility] Oxygen saturation in 2019-11-15 16:37:00 98 /min [facility] of Arterial blood by [place] [facility] Pulse oximetry Branch Systolic blood 2019-10-31 18:00:00 120 mm[Hg] Univer sity of [facility] [place] [facility] Diastolic blood 2019-10-31 18:00:00 80 mm[Hg] Unive rsity of [facility] [place] [facility] Heart rate 2019-10-31 18:00:00 61 /min [facility] [place] [facility] Oxygen saturation in 2019-10-31 18:00:00 98 /min University of Arterial blood by [facility] Pulse oximetry Branch Respiratory rate 2019-10-31 17:20:00 16 /min Univ [facility] [place] [facility] Body temperature 2019-10-31 15:17:00 36.5 [place] [facility] [place] [facility] Body height 2019-10-31 15:17:00 160 cm [facility] [place] [facility] Body weight 2019-10-31 15:17:00 48.988 kg [facility] [place] [facility] BMI 2019-10-31 15:17:00 19.13 kg/m2 [facility] [place] [facility] Systolic blood 2019-10-31 18:00:00 120 mm[Hg] Univer sity of [facility] [place] [facility] Diastolic blood 2019-10-31 18:00:00 80 mm[Hg] Unive rsity of [facility] [place] [facility] Heart rate 2019-10-31 18:00:00 61 /min [facility] [place] [facility] Oxygen saturation in 2019-10-31 18:00:00 98 /min University of Arterial blood by [facility] Pulse oximetry Branch Respiratory rate 2019-10-31 17:20:00 16 /min [facility] [place] [facility] Body temperature 2019-10-31 15:17:00 36.5 [place] [facility] [place] [facility] Body height 2019-10-31 15:17:00 160 cm [facility] [place] [facility] Body weight 2019-10-31 15:17:00 48.988 kg [facility] [place] [facility] BMI 2019-10-31 15:17:00 19.13 kg/m2 [facility] [place] [facility] Systolic blood 2019-10-27 19:31:00 100 mm[Hg] Univer sity of [facility] [place] [facility] Diastolic blood 2019-10-27 19:31:00 65 mm[Hg] Unive rsity of [facility] [place] [facility] Heart rate 2019-10-27 19:31:00 96 /min [facility] [place] [facility] Body temperature 2019-10-27 19:31:00 37.06 [place] [facility] [place] [facility] Body height 2019-10-27 19:31:00 160 cm [facility] [place] [facility] Body weight 2019-10-27 19:31:00 49.125 kg [facility] [place] [facility] BMI 2019-10-27 19:31:00 19.18 kg/m2 [facility] [place] [facility] Oxygen saturation in 2019-10-27 19:31:00 97 /min University of Arterial blood by [facility]erman Pulse oximetry Branch Systolic blood 2019-10-27 19:31:00 100 mm[Hg] Univer sity of [facility] [place] [facility] Diastolic blood 2019-10-27 19:31:00 65 mm[Hg] Unive rsity of [facility] [place] [facility] Heart rate 2019-10-27 19:31:00 96 /min [facility] [place] [facility] Body temperature 2019-10-27 19:31:00 37.06 [place] [facility] Body height 2019-10-27 19:31:00 160 cm [facility] Body weight 2019-10-27 19:31:00 49.125 kg [facility] BMI 2019-10-27 19:31:00 19.18 kg/m2 [facility] Oxygen saturation in 2019-10-27 19:31:00 97 /min [facility] Ar[facility]ial blood by [place] [facility] Pulse oximetry Branch Systolic blood 2019-10-24 19:31:00 100 mm[Hg] [facility] Diastolic blood 2019-10-24 19:31:00 72 mm[Hg] [facility]ive [facility] Heart rate 2019-10-24 19:31:00 80 /min [facility] Body temperature 2019-10-24 19:31:00 36.17 Nereyda [facility] Respiratory rate 2019-10-24 19:31:00 17 /min [facility] height 2019-10-24 19:31:00 160 cm [facility] [place] [facility] [place] Body weight 2019-10-24 19:31:00 50.077 kg [facility] [place] [facility] [place] BMI 2019-10-24 19:31:00 19.56 kg/m2 [facility] Oxygen saturation in 2019-10-24 19:31:00 98 /min University of Arterial blood by [facility] Pulse oximetry Branch Systolic blood 2019-08-23 19:06:00 101 mm[Hg] Univer sity of pressure [facility] Diastolic blood 2019-08-23 19:06:00 68 mm[Hg] Unive rsity of pressure [facility] Heart rate 2019-08-23 19:06:00 74 /min [facility] Body temperature 2019-08-23 19:06:00 36.22 Nereyda [facility] Respiratory rate 2019-08-23 19:06:00 18 /min [facility] Body height 2019-08-23 19:06:00 160 cm [facility] [place] [facility] [place] Body weight 2019-08-23 19:06:00 51.574 kg [facility] [place] [facility] [place] BMI 2019-08-23 19:06:00 20.14 kg/m2 [facility] Oxygen saturation in 2019-08-23 19:06:00 98 /min University of Arterial blood by [facility] Pulse oximetry Branch Procedures Procedure Date / Time Performing Clinician Source Performed MR PELVIS W WO CONTRAST 2022-03-26 16:09:00 Margaret Martinez [facility] HB CREATININE 2022-03-14 18:13:00 Justin Aggarwal [facility] SERUM/BLOOD FOR IMAGING [facility] Branch AUTHORIZATION FOR 2022-01-21 06:01:00 Doctor Unassigned, No [facility] RELEASE OF PHI Name Medical Branch COVID-19 (ID NOW RAPID 2019-11-30 04:14:00 Banipal Morrical, Uni [facility] TESTING) [facility] LIPASE 2019-11-30 02:40:00 Graeme Sanchez [facility] COMP. METABOLIC PANEL 2019-11-30 02:40:00 Graeme Sanchez [facility] ([id number]) Medical Branch CBC WITH DIFF 2019-11-30 02:40:00 Graeme Sanchez [facility] URINALYSIS 2019-11-30 02:40:00 Graeme Sanchez [facility] EXTRA TUBE LT. BLUE 2019-11-30 02:40:00 Graeme Sanchez [facility] EXTRA TUBE ORANGE 2019-11-30 02:40:00 Graeme Sanchez [facility] POCT TEST 2019-11-30 02:29:00 Graeme Sanchez [facility] COVID-19 (ID NOW RAPID 2019-11-25 18:21:00 Andie Dow [facility] TESTING) Medical Branch DISCLOSURE AND CONSENT, 2019-11-15 05:01:00 Doctor Unassigned, N o [facility] MEDICAL AND SURGICAL [facility] Medical [facility] PROCEDURES DISCLOSURE AND CONSENT, 2019 05:01:00 Doctor Unassigned, N o [facility] MEDICAL AND SURGICAL Name Medical [facility] PROCEDURES CT ABDOMEN PELVIS W 2019-11-11 20:18:49 Omi Buckley [facility] CONTRAST [facility] CT THORAX W CONTRAST 2019-11-11 20:08:56 Omi Buckley [facility] MR PELVIS W WO CONTRAST 2019-11-08 17:33:17 Omi Buckley [facility] IR CENTRALLY INSERTED 2019-10-31 17:24:22 Omi Buckley [facility] DEVICE TUNNELED CATHETER [facility] Branch WITH PORT 5 OR OLDER CBC WITH DIFF 2019-10-31 15:13:00 Georges Pat [facility] Martinez [facility] URINALYSIS 2019-10-31 15:13:[address] [facility] Dary [facility] SCANNED LAB RESULTS 2019-10-14 05:01:00 Doctor Unassigned, No Un [facility] [place] Encounters Start End Encounter Admission Attending Care Care Encounter Source Date/Time Date/Time Type Type Clinicians Facility Department ID 2021-04-19 Outpatient R [facility] [id number] Univers 10:50:18 GERI itchapo [facility] 2021-01-15 Emergency [facility] [id number] Univers 09:53:16 ity of [facility] 2021-01-12 Inpatient BEA [facility] [id number] Univers 18:42:33 GERI itchapo [facility] 2021-01-12 Emergency [facility] [id number] Univers 12:28:58 ity [facility] 2021-01-12 Inpatient R MAGDI PELAYO [facility] KEAGAN [id number] Univers 06:40:19 ity of [facility] 2021-01-12 Emergency [facility] [id number] Univers 03:48:01 ity [facility] 2021-01-11 Outpatient R BEA [facility] [id number] Univers 18:01:29 GERI chapo [facility] 2021-01-11 Outpatient BEA [facility] [id number] Univers 17:45:37 GERI chapo [facility] 2021-01-11 Emergency [facility] [id number] Univers 17:44:07 ity [facility] 2020-02-03 Inpatient R ABIMBOLA [facility] [id number] Univers 15:43:00 IMELDA [facility] 2019-12-01 Outpatient SYSTEM, [facility] [id number] 11:16:54 PROVIDER Mukesh arellano 2022-05-02 2022-05-02 Outpatient R PALOMA [facility] [id number] Univers 11:30:00 11:30:00 ANDIE itchapo [facility] 2022-04-30 2022-04-30 Outpatient R JUSTIN AGGARWAL [facility] [id number] Univers 09:30:00 09:30:00 JUSTIN AGGARWAL chapo [facility] 2022-04-30 2022-04-30 Case GAUDENCIO Martinez 1.2.840.114 [id number] Univers 00:00:00 00:00:00 Management Margaret Tolliver 350.1.13.10 ity [facility] 4.2.7.2.686 [place] [id number] [place] [address] Branch 2022-04-25 2022-04-25 Outpatient JUSTIN COLES [facility] [id number] Univers 00:00:00 00:00:00 JUSTIN AGGARWAL [facility] 2022-04-23 2022-04-23 Case MichelleGAUDENCIO 1.2.840.114 [id number] Univers 00:00:00 00:00:00 Management Margaret Tolliver 350.1.13.10 ity of [facility] BUILDING 4.2.7.2.686 [place] [id number] [address] 2022-04-23 2022-04-23 Multidisci Jasen UNIVERSIT 1.2.840.114 1 [id number] Univers 00:00:00 00:00:00 plinary Justin Landon HEALTH 350.1.13.10 i ty of [facility] CLINICS 4.2.7.2.686 [place] [id number] [address] 2022-04-09 2022-04-09 Outpatient R JUSTIN AGGARWAL [facility] [id number] Univers 09:00:00 12:58:10 JUSTIN AGGARWAL [facility] 2022-04-09 2022-04-09 Office Michelle Margaret Nancy RATLIFF 1.2.840.114 [id number] Univers 09:00:00 12:58:10 Visit Vinay Aggarwale Unruly 350.1.13.10 ity of BUILDING 4.2.7.2.686 [place] [id number] [address] 2022-04-09 2022-04-09 Automobile Service Advisor [facility] UNIVERSIT 1.2.840.114 [id number] Univers 11:00:00 11:15:00 Visit Jasen Justin Chapo HEALTH 350.1.13.10 it[id number] [address] 2022-03-26 2022-03-26 Outpatient JUSTIN COLES [facility] [id number] Univers 08:31:09 23:59:00 JASEN JUSTIN miller [facility] 2022-03-26 2022-03-26 [facility] 1.2.840.114 [id number] Univers 08:31:09 23:59:00 Encounter Justin TRIMBLE 350.1.13.10 ity of [facility] 4.2.7.2.686 [facility] [id number] [facility] 804 Branch 2022-03-18 2022-03-18 Outpatient R JUSTIN AGGARWAL [facility] [id number] Univers 00:00:00 00:00:00 JUSTIN AGGARWAL itchapo [facility] 2022-03-14 2022-03-14 [facility] 1.2.840.114 [id number] Univers 10:56:10 23:59:00 Encounter Justin TRIMBLE 350.1.13.10 ity of [place] 4.2.7.2.686 [facility] [id number] [facility] [address] [place] 2022-03-14 2022-03-14 Outpatient R JUSTIN AGGARWAL [facility] [id number] Univers 10:55:48 10:55:00 JUSTNI AGGARWAL ity [facility] 2022-03-14 2022-03-14 [facility] 1.2.840.114 [id number] Univers 10:50:00 10:55:00 Encounter Justin ROSENSHAYY 350.1.13.10 ity of [facility] 4.2.7.2.686 [facility] [id number] [facility] [address] [place] 2022-03-03 2022-03-03 Telephone GAUDENCIO Martinez 1.2.840.114 [id number] Univers 00:00:00 00:00:00 Margaret H 350.1.13.10 it y of [place] BUILDING 4.2.7.2.686 [place] [id number] [facility] 080 Branch 2022-02-27 2022-02-27 Telephone GAUDENCIO Martinez 1.2.840.114 [id number] Univers 00:00:00 00:00:00 Margaret H 350.1.13.10 it y of [place] BUILDING 4.2.7.2.686 [place] [id number] [place] [address] [place] 2022-02-26 2022-02-26 Outpatient R JUSTIN AGGARWAL [facility] [id number] Univers 09:00:00 09:48:11 AGGARWALJUSTIN angela [facility] 2022-02-26 2022-02-26 Office Margaret Martinez FELIXCaryl 1.2.840.114 [id number] Univers 09:00:00 09:48:11 Visit Jasen Justin Unruly 350.1.13.10 ity of [facility] 4.2.7.2.686 [place] [id number] [place] [address] [place] 2022-01-21 2022-01-21 Orders Doctor NEVAREZ 1.2.840.114 [id number] Univers 00:00:00 00:00:00 Only Unassigned, PATRICIO 350.1.13.10 ity of [place] [facility] 4.2.7.2.686 [place] [id number] [place] [address] Branch 2021-12-09 2021-12-09 Outpatient R MICKEY, [facility] [id number] Univers 10:45:00 10:45:00 [facility] 2021-10-30 2021-10-30 Outpatient R [facility] [id number] Univers 11:00:00 11:00:00 ity [facility] 2021-10-30 2021-10-30 Outpatient R JUTSIN AGGARWAL [facility] [id number] Univers 11:00:00 11:00:00 JUSTIN AGGARWAL [facility] 2021-10-30 2021-10-30 Outpatient R JUSTIN AGGARWAL [facility] [id number] Univers 11:00:00 11:00:00 JUSTIN AGGARWAL [facility] 2021-10-30 2021-10-30 Outpatient R JUSTIN AGGARWAL [facility] [id number] Univers 11:00:00 11:00:00 JUSTIN AGGARWAL [facility] 2021-10-30 2021-10-30 [facility] RUBY Aggarwal .2.840.114 [id number] Univers 00:00:00 00:00:00 plinary Justin Landon [facility] 350.1.13.10 i ty of [place] CLINICS 4.2.7.2.686 [place] [id number] [facility] 080 Branch 2021-10-28 2021-10-28 Automobile Service Advisor [facility] UNIVERSIT 1.2.840.114 [id number] Univers 10:45:00 11:00:00 Visit AggarwalJustin molina Chapo HEALTH 350.1.13.10 ity of [place] [id number] [facility] 316 Branch 2021-10-28 2021-10-28 Outpatient R [facility] [id number] Univers 10:45:00 10:45:00 ity of [facility] 2021-10-28 2021-10-28 Outpatient R JUSTIN AGGARWAL [facility] [id number] Univers 10:45:00 10:45:00 JUSTIN AGGARWAL [facility] 2021-10-15 2021-10-15 Outpatient R PALOMA [facility] [id number] Univers 13:32:36 23:59:00 [facility]IE [facility] 2021-10-15 2021-10-15 [facility] UNIVERSIT 1.2.840.114 [id number] Univers 13:00:00 23:59:00 Encounter Andie Landon [facility] 350.1.13.10 ity of [place] [id number] [facility] 804 Branch 2021-10-15 2021-10-15 [facility] [id number] Univers 00:00:00 00:00:00 ANDIE itchapo [facility] 2021-10-02 2021-10-02 Outpatient R JUSTIN AGGARWAL [facility] [id number] Univers 11:30:00 12:00:14 JUSTIN AGGARWAL [facility] 2021-10-02 2021-10-02 Office Margaret Martinez 1.2.840.114 [id number] Univers 11:30:00 12:00:14 Visit Justin Aggarwal 350.1.13.10 ity of BUILDING 4.2.7.2.686 [place] [phone] [address] 2021-10-02 2021-10-02 Outpatient R JUSTIN AGGARWAL [facility] [id number] Univers 11:30:00 12:00:14 [facility] 2021-09-18 2021-09-18 [facility] [id number] [id number] Univers 10:17:22 23:59:00 Encounter Grazyna Martin SPECIALTY 350.1.13.10 ity of [place] [id number] Wi celina [address] 2021-09-18 2021-09-18 Outpatient R [facility] [id number] Univers 10:16:35 10:16:00 [facility] 2021-09-18 2021-09-18 [facility] [id number] Univers 10:16:35 10:16:00 [facility] 2021-09-18 2021-09-18 [facility] [id number] [id number] Univers 10:00:00 10:16:00 Encounter Grazyna Martin SPECIALTY 350.1.13.10 ity of [place] [id number] Wi celina [place] [address] [place] [address] 2021-09-18 2021-09-18 Outpatient R PALOMA [facility] [id number] Univers 00:00:00 00:00:00 [facility] 2021-09-18 2021-09-18 Outpatient R PALOMA [facility] [id number] Univers 00:00:00 00:00:00 [facility] 2021-09-02 2021-09-02 Outpatient R PALOMA [facility] [id number] Univers 13:00:00 14:12:19 [facility] 2021-09-02 2021-09-02 Office Margaret Martinez 1.2.840.114 [id number] Univers 13:00:00 14:12:19 Visit Paloma Andie Unruly 350.1.13.10 ity of BUILDING 4.2.7.2.686 [place] [id number] [place] [address] [place] 2021-09-02 2021-09-02 [facility] [id number] Univers 13:00:00 13:00:00 [facility] 2021-08-26 2021-08-26 [facility] [id number] Univers 00:00:00 00:00:00 [facility] 2021-08-26 2021-08-26 [facility] [id number] Univers 00:00:00 00:00:00 GRAZYNA [facility] 2021-08-14 2021-08-14 [facility] [id number] Univers 09:00:00 09:00:00 [facility]IE [facility] 2021-08-14 2021-08-14 Case GAUDENCIO Martinez 1.2.840.114 [id number] Univers 00:00:00 00:00:00 Management Margaret Tolliver 350.1.13.10 ity [facility] 4.2.7.2.686 [place] [phone] [address] 2021-08-09 2021-08-09 [facility] [id number] Univers 11:15:00 16:40:54 [facility]IE [facility] 2021-08-09 2021-08-09 Automobile Service Advisor [facility] UNIVERSIT 1.2.840.114 [id number] Univers 11:15:00 11:30:00 Visit Andie Dow [facility] 350.1.13.10 ity of [place] [id number] [address] 2021-08-09 2021-08-09 Outpatient R PALOMA [facility] [id number] Univers 11:15:00 11:15:00 ANDIE ity [facility] 2021-08-08 2021-08-08 Outpatient R PALOMA [facility] [id number] Univers 00:00:00 00:00:00 ANDIE ity [facility] 2021-08-01 2021-08-01 Outpatient R PALOMA [facility] [id number] Univers 14:00:00 14:00:00 ANDIE ity [facility] 2021-07-31 2021-07-31 Case Paloma, UNIVERSIT 1.2.840.114 [id number] Univers 00:00:00 00:00:00 Management Andie Y HEALTH 350.1.13.10 it[place] [id number] [address] 2021-07-30 2021-07-30 Nurse 4, [facility] Infusion Chair UNIVERSIT 1. 2.840.114 [id number] Univers 08:30:00 12:00:00 Visit Moses Dyer Y HEALTH 350.1.13.10 ity of [place] [id number] [address] 2021-07-30 2021-07-30 Outpatient R MANISHA [facility] [id number] Univers 08:30:00 08:30:00 MOSES ity [facility] 2021-07-30 2021-07-30 Outpatient R MANISHA [facility] [id number] Univers 08:30:00 08:30:00 MOSES ity [facility] 2021-07-30 2021-07-30 Case Navaluisitogerald GAUDENCIO 1.2.840.114 [id number] Univers 00:00:00 00:00:00 Management Margaret H 350.1.13.10 ity of [facility] 4.2.7.2.686 [place] as [id number] [address] 2021-07-29 2021-07-29 Outpatient R PALOMA [facility] [id number] Univers 13:15:00 16:27:43 ANDIE ity [facility] 2021-07-29 2021-07-29 Automobile Service Advisor [facility] UNIVERSIT 1.2.840.114 [id number] Univers 13:15:00 13:30:00 Visit Andie Dow 350.1.13.10 ity of [place] [id number] [address] 2021-07-29 2021-07-29 [facility] [id number] Univers 13:15:00 13:15:00 ANDIE [facility] 2021-07-23 2021-07-23 Outpatient [facility] [id number] Univers 12:30:00 12:30:00 [facility] 2021-07-23 2021-07-23 Outpatient [facility] [id number] Univers 12:30:00 12:30:00 [facility] 2021-07-23 2021-07-23 Automobile Service Advisor [facility] UNIVERSIT 1.2.840.114 [id number] Univers 08:15:00 10:27:40 Visit Andie Dow [facility] 350.1.13.10 ity of [place] [id number] [address] 2021-07-23 2021-07-23 Outpatient [facility] [id number] Univers 08:15:00 08:15:00 [facility] 2021-07-23 2021-07-23 Case GAUDENCIO Dow 1.2.840.114 [id number] Univers 00:00:00 00:00:00 Management [facility] 350.1.13.10 ity of BUILDING 4.2.7.2.686 [place] [id number] [place] [address] [place] 2021-07-22 2021-07-22 Outpatient [facility] [id number] Univers 13:00:00 17:03:27 [facility] 2021-07-222021-07-22 Office Margaret Martinez 1.2.840.114 [id number] Univers 13:00:00 17:03:27 Visit Paloma Andie Unruly 350.1.13.10 ity of BUILDING 4.2.7.2.686 [place] as [id number] [facility] 080 Branch 2021-07-22 2021-07-22 [facility] [id number] Univers 13:00:00 13:00:00 ANDIE [facility] 2021-07-22 2021-07-22 Outpatient [facility] [id number] Univers 13:00:00 13:00:00 [facility] 2021-07-22 2021-07-22 Outpatient [facility] [id number] Univers 12:15:00 12:15:00 [facility] 2021-07-22 2021-07-22 Outpatient [facility] [id number] Univers 12:15:00 12:15:00 ANDIE [facility] 2021-07-17 2021-07-17 Patient GAUDENCIO Martinez 1.2.840.114 [id number] Univers 00:00:00 00:00:00 Secure Msg Margaret Tolliver 350.1.13.10 ity of [facility] BUILDING 4.2.7.2.686 [place] as [id number] [facility] 181 [address] 2021-07-16 2021-07-16 Case WHIT DowIT 1.2.840.114 [id number] Univers 00:00:00 00:00:00 Management Andie HEALTH 350.1.13.10 ity of [place] [id number] [facility] 053 Branch 2021-07-11 2021-07-11 Outpatient [facility] [id number] Univers 14:00:00 14:00:00 ANDIE [facility] 2021-07-11 2021-07-11 Outpatient R [facility] [id number] Univers 14:00:00 14:00:00 ANDIE itchapo [facility] 2021-07-09 2021-07-09 [facility] [id number] Univers 09:00:00 14:03:49 GRAZYNA miller [facility] 2021-07-09 2021-07-09 Office GAUDENCIO Narayanan 1.2.840.114 [id number] Univers 09:00:00 14:03:49 Visit Grazyna Tolliver 350.1.13.10 ity of BUILDING 4.2.7.2.686 [place] [id number] [facility] [address] [place] 2021-07-09 2021-07-09 Office GAUDENCIO Narayanan 1.2.840.114 [id number] Univers 09:00:00 14:03:49 Visit Grazyna Tolliver 350.1.13.10 ity of BUILDING 4.2.7.2.686 [place] as [id number] [facility] [address] [place] 2021-07-09 2021-07-09 Outpatient R ORACIO [facility] [id number] Univers 09:00:00 14:03:49 GRAZYNA miller [facility] 2021-07-09 2021-07-09 Nurse 1, [facility] Infusion Chair UNIVERSIT 1. 2.840.114 [id number] Univers 10:00:00 13:30:00 Visit Andie Dow [facility] 350.1.13.10 ity of CL[place] [id number] [facility] 053 [address] 2021-07-09 2021-07-09 Nurse 1, [facility] Infusion Chair UNIVERSIT 1. 2.840.114 [id number] Univers 10:00:00 13:30:00 Visit Andie Dow HEALTH 350.1.13.10 ity of [place] [id number] [facility] 053 Branch 2021-07-09 2021-07-09 Nurse 1, [facility] Infusion Chair UNIVERSIT 1. 2.840.114 [id number] Univers 10:00:00 13:30:00 Visit Andie Dow HEALTH 350.1.13.10 ity of CL[place] 4[place] [id number] [facility] 053 [address] 2021-07-09 2021-07-09 Nurse 1, [facility] Infusion Chair UNIVERSIT 1. 2.840.114 [id number] Univers 10:00:00 13:30:00 Visit Andie Dow HEALTH 350.1.13.10 ity of [place] [id number] [place] [address] Branch 2021-07-09 2021-07-09 Outpatient R PALOMA, [facility] [id number] Univers 10:00:00 10:00:00 ANDIE ity [facility] 2021-07-09 2021-07-09 Automobile Service Advisor [facility] UNIVERSIT 1.2.840.114 [id number] Univers 08:30:00 08:36:14 Visit Moses Dyer B Y HEALTH 350.1.13.10 ity of [place] [id number] [facility] 316 [address] 2021-07-09 2021-07-09 Case GAUDENCIO Martinez 1.2.840.114 [id number] Univers 00:00:00 00:00:00 Management Margaret H 350.1.13.10 ity of [place] BUILDING 4.2.7.2.686 [place] as [id number] [facility] 080 [address] 2021-07-09 2021-07-09 Case WHIT DowIT 1.2.840.114 [id number] Univers 00:00:00 00:00:00 Management Andie HEALTH 350.1.13.10 ity of [place] [id number] [facility] 080 [address] 2021-07-09 2021-07-09 Case GAUDENCIO Martinez 1.2.840.114 [id number] Univers 00:00:00 00:00:00 Management Margaret H 350.1.13.10 ity of [place] BUILDING 4.2.7.2.686 Juna as [id number] [facility] 080 [address] 2021-07-09 2021-07-09 Case MichelleGAUDENCIO 1.2.840.114 [id number] Univers 00:00:00 00:00:00 Management Margaret H 350.1.13.10 ity of [place] BUILDING 4.2.7.2.686 [place] as [id number] [facility] 080 [address] 2021-07-08 2021-07-08 Case PalomaGAUDENCIO mustafa 1.2.840.114 [id number] Univers 00:00:00 00:00:00 Management Andie H 350.1.13.10 ity of BUILDING 4.2.7.2.686 [place] as [id number] [facility] 0[address] 2021-07-05 2021-07-05 Wagner MartinezGAUDENCIO 1.2.840.114 [id number] Univers 00:00:00 00:00:00 Management Margaret H 350.1.13.10 ity of [place] BUILDING 4.2.7.2.686 [place] as [id number] [facility] 080 [address] 2021-07-04 2021-07-04 Case Michelle UNIVERSIT 1.2.840.114 [id number] Univers 00:00:00 00:00:00 Management Margaret HEALTH 350.1.13.10 ity of [place] CL[place] [id number] [facility] 053 Branch 2021-07-03 2021-07-03 Case JOSH Martinez 1.2.840.114 [id number] Univers 00:00:00 00:00:00 Management Ed [facility] [id number] [place] [id number] [facility] [address] 2021-06-27 2021-06-27 Nurse 7, [facility] Infusion Chair UNIVERSIT 1. [id number] Univers 12:00:00 15:00:00 Visit PalomaShantelleit Y B[place] [id number] ity of [place] 4[place] [id number] [place] [id number] [place] 2021-06-27 2021-06-27 [facility] [id number] Univers 12:00:00 12:00:00 ANDIE [facility] 2021-06-27 2021-06-27 Outpatient R [facility] [id number] Univers 12:00:00 12:00:00 [facility] 2021-06-26 2021-06-26 Nurse 2, [facility] Infusion Chair UNIVERSIT 1. 2.840.114 [id number] Univers 14:15:00 14:45:00 Visit Andie Dow [facility] 350.1.13.10 it[place] [id number] [address] 2021-06-26 2021-06-26 Outpatient R [facility] [id number] Univers 14:15:00 14:15:00 [facility] 2021-06-26 2021-06-26 Outpatient R [facility] [id number] Univers 14:15:00 14:15:00 [facility] 2021-06-26 2021-06-26 Nurse GERI Lim 1.2.840.114 [id number] Univers 00:00:00 00:00:00 Triage Renee CURRY 350.1.13.10 it y of [facility] 4.2.7.2.686 [place] [id number] [facility] [address] [place] 2021-06-25 2021-06-25 Nurse 2, [facility] Infusion Chair UNIVERSIT 1. 2.840.114 [id number] Univers 08:30:00 15:00:00 Visit Andie Dow [facility] 350.1.13.10 it[place] [id number] [facility] [address] [place] 2021-06-25 2021-06-25 Nurse 2, [facility] Infusion Chair UNIVERSIT 1. 2.840.114 [id number] Univers 08:30:00 15:00:00 Visit Andie Dow [facility] 350.1.13.10 it[place] [id number] [facility] [address] 2021-06-25 2021-06-25 Outpatient R [facility] [id number] Univers 08:30:00 08:30:00 ANDIE ity of [facility] 2021-06-25 2021-06-25 Orders Doctor NEVAREZ 1.2.840.114 [id number] Univers 00:00:00 00:00:00 Only Unassigned, PATRICIO 350.1.13.10 ity of [place] [facility] 4.2.7.2.686 [place] as [phone] [address] 2021-06-25 2021-06-25 Telephone GAUDENCIO Dow 1.2.840.11 [id number] Univers 00:00:00 00:00:00 Andie H 350.1.13.10 it y of [facility] 4.2.7.2.686 [place] as [phone] [facility] [address] [place] 2021-06-25 2021-06-25 Case GAUDENCIO Martinez 1.2.840.114 [id number] Univers 00:00:00 00:00:00 Management Margaret Tolliver 350.1.13.10 ity of [facility] 4.2.7.2.686 [place] [phone] [facility] [address] [place] 2021-06-25 2021-06-25 Patient GAUDENCIO Leblanc 1.2.840.114 [id number] Univers 00:00:00 00:00:00 Outreach Kaleyindy Janett H 350.1.13.10 ity of [facility] 4.2.7.2.686 [place] [phone] [address] 2021-06-24 2021-06-24 Outpatient R [facility] [id number] Univers 16:00:00 17:12:44 ANDIE ity of [facility] 2021-06-24 2021-06-24 Telemedici [facility] 1.2.840.114 [id number] Univers 16:00:00 17:12:44 ne Visit Andie Dow 350.1.13.10 ity of [place]ILD[place] 4.2.7.2.686 [place] [phone] [address] 2021-06-24 2021-06-24 [facility] 1.2.840.114 [id number] Univers 16:00:00 17:12:44 ne Visit Andie Dow 350.1.13.10 ity of [facility] 4.2.7.2.686 [place] as [phone] [address] 2021-06-24 2021-06-24 [facility] Margaret Martinez [facility] CULLOU 1.2.840.114 [id number] Univers 16:00:00 17:12:44 ne Visit Andie Dow 350.1.13.10 ity of [facility] 4.2.7.2.686 [place] [phone] [address] 2021-06-24 2021-06-24 [facility] [id number] Univers 16:00:00 17:12:44 [facility] 2021-06-24 2021-06-24 [facility] [id number] Univers 16:00:00 16:00:00 [facility] 2021-06-24 2021-06-24 Outpatient [facility] [id number] Univers 16:00:00 16:00:00 [facility] 2021-06-24 2021-06-24 Automobile Service Advisor Sergio, Leopoldo Lab Main [facility] 1.2.8 40.114 [id number] Univers 14:30:00 14:45:00 Visit Andie Dow 350.1.13.10 ity of [place] [phone] Wi dical [facility] 353 [facility] 2021-06-24 2021-06-24 Out[facility] [id number] Univers 14:30:00 14:30:00 ANDIE ity [facility] 2021-06-24 2021-06-24 Outpatient R [facility] [id number] Univers 14:30:00 14:30:00 ANDIE ity [facility] 2021-06-24 2021-06-24 Orders Doctor NEVAREZ 1.2.840.114 [id number] Univers 00:00:00 00:00:00 Only Unassigned, PATRICIO 350.1.13.10 ity of [facility] 4.2.7.2.686 [place] as [phone] [facility] [address] 2021-06-21 2021-06-21 Outpatient R [facility] [id number] Univers 11:00:00 11:00:00 ity of [facility] 2021-06-21 2021-06-21 Outpatient R [facility] [id number] Univers 11:00:00 11:00:00 ity [facility] 2021-06-21 2021-06-21 Outpatient R [facility]Y [facility] [id number] Univers 11:00:00 11:00:00 ity [facility] 2021-06-19 2021-06-19 Outpatient [facility] [id number] Univers 15:35:54 23:59:00 JESUS ity of [facility] 2021-06-19 2021-06-19 [facility] Silvio, UNIVERSIT 1.2.840.114 [id number] Univers 15:15:00 23:59:00 Encounter Jesus Landon HEALTH 350.1.13.10 ity of [facility] [place].7.2.[place] [id number] [facility] [address] 2021-06-19 2021-06-19 Outpatient R [facility] [id number] Univers 12:35:46 15:14:00 ANDIE ity [facility] 2021-06-19 2021-06-19 [facility] Paloma UNIVERSIT 1.2.840.114 [id number] Univers 11:30:00 15:14:00 Encounter Andie Y HEALTH 350.1.13.10 ity of [place] [id number] [facility] [address] 2021-06-19 2021-06-19 GAUDENCIO Turner 1.2.840.114 [id number] Univers 00:00:00 00:00:00 Management Andie H 350.1.13.10 ity of [place]ILD[place] 4.2.7.2.686 [place] [phone] [facility] [address] 2021-06-19 2021-06-19 GAUDENCIO Gupta 1.2.840.114 [id number] Univers 00:00:00 00:00:00 Management Margaret Tolliver 350.1.13.10 ity of [place] 4.2.7.2.686 [place] as [phone] [facility] [address] [place] 2021-06-17 2021-06-17 Laboratory Only, Adc Test [facility] 1.2.840. 114 [id number] Univers 11:00:00 11:15:00 Only Radiology [place] 350.1.13.10 ity of [place]ARY [phone] [facility] [address] 2021-06-17 2021-06-17 Outpatient R [facility]Y [facility] [id number] Univers 11:00:00 11:00:00 ity [facility] 2021-06-14 2021-06-14 Outpatient Scooby [facility] [id number] Univers 08:30:00 08:30:00 GERI ity [facility] 2021-06-12 2021-06-12 Multidisci RUBY Figueredo 1.2.840.114 [id number] Univers 00:00:00 00:00:00 plinary [facility] 350.1.13.10 i ty of [facility] 4.2.7.2.686 [place] [phone] [facility] [address] 2021-06-11 2021-06-11 Outpatient Scooby [facility] [id number] Univers 13:37:58 23:59:00 GERI ity [facility] 2021-06-11 2021-06-11 [facility] 1.2.840.114 [id number] Univers 13:30:00 23:59:00 Encounter Geri ALONSO 350.1.13.10 ity of [place] C[place] AT [phone] Wi dickorin VICTORY 804 [facility] 2021-06-11 2021-06-11 Outpatient Scooby [facility] [id number] Univers 00:00:00 00:00:00 GREI miller [facility] 2021-06-11 2021-06-11 Outpatient Scooby [facility] [id number] Univers 00:00:00 00:00:00 GERI miller [facility] 2021-06-07 2021-06-07 Outpatient Scooby [facility] [id number] Univers 08:15:00 08:54:38 GERI miller [facility] 2021-06-07 2021-06-07 Office [facility] 1.2.840.114 [id number] Univers 08:15:00 08:54:38 Visit Geri TRIMBLE 350.1.13.10 i ty of [place].7.2.[place] [phone] Wi celina NAL 188 [facility] 2021-06-07 2021-06-07 Outpatient Scooby [facility] [id number] Univers 08:15:00 08:54:38 GERI miller [facility] 2021-06-07 2021-06-07 Orders Doctor GERI 1.2.840.114 [id number] Univers 00:00:00 00:00:00 Only Unassigned, PATRICIO 350.1.13.10 ity of [place] [facility] 4.2.7.2.686 [place] [phone] [address] 2021-06-04 2021-06-04 Outpatient R [facility] [id number] Univers 09:30:00 09:30:00 ANDIE miller [facility] 2021-06-04 2021-06-04 Outpatient Scooby DOW [facility] [id number] Univers 09:30:00 09:30:00 [facility] 2021-05-27 2021-05-27 Office Margaret Martinez 1.2.840.114 [id number] Univers 15:00:00 16:12:12 Visit Paloma Andie Tolliver 350.1.13.10 ity of [facility] 4.2.7.2.686 [place] as [id number] [facility] [address] 2021-05-27 2021-05-27 Outpatient R [facility] [id number] Univers 15:00:00 16:12:12 [facility] 2021-05-27 2021-05-27 Outpatient R [facility] [id number] Univers 15:00:00 15:00:00 [facility] 2021-05-20 2021-05-20 Outpatient R [facility] [id number] Univers 13:00:00 13:00:00 [facility] 2021-05-20 2021-05-20 Outpatient R [facility] [id number] Univers 13:00:00 13:00:00 [facility] 2021-05-15 2021-05-15 Multidisci Walker, UNIVERSIT 1..840.114 [id number] Univers 00:00:00 00:00:00 plinary [facility] 350.1.13.10 i ty of [place] [facility] 4.2.7.2.686 T exclaudia [phone] [facility] [address] [place] 2021-05-13 2021-05-13 Patient Doctor [facility] 1.2.840.114 [id number] Univers 00:00:00 00:00:00 Secure Msg Unassigned, NAI 350.1.13.10 ity of [place] 4.2.7.2.686 Roxanna GROSS [phone] [facility] 188 [facility] 2021-05-10 2021-05-10 [facility] 1.2.840.114 [id number] Univers 13:00:31 23:59:00 Encounter Andie TRIMBLE 350.1.13.10 ity of [facility] 4.2.7.2.686 [facility] [phone] [facility] [address] 2021-05-10 2021-05-10 Outpatient R [facility] [id number] Univers 12:59:55 12:59:55 ANDIE ity [facility] 2021-05-10 2021-05-10 [facility] 1.2.840.114 [id number] Univers 12:59:55 12:59:55 Encounter Andie TRIMBLE 350.1.13.10 ity of [place] 4.2.7.2.686 [facility] [id number] [facility] [address] 2021-05-10 2021-05-10 Orders Doctor GERI 1.2.840.114 [id number] Univers 00:00:00 00:00:00 Only Unassigned, PATRICIO 350.1.13.10 ity of [place] [facility] 4.2.7.2.686 [facility] [id number] [facility] [address] 2021-05-09 2021-05-09 Office [facility] 1.2.840.114 [id number] Univers 15:45:00 16:00:00 Visit [facility] 350.1.13.10 it y of [place] CANCER 4.2.7.2.686 [facility] - [phone] Med ical [facility] [address] 2021-05-09 2021-05-09 Outpatient R [facility]A [facility] [id number] Univers 15:45:00 15:45:00 GERI miller [facility] 2021-05-06 2021-05-06 Outpatient R [facility] [id number] Univers 14:30:00 14:30:00 ANDIE miller [facility] 2021-05-06 2021-05-06 Outpatient R [facility] [id number] Univers 14:30:00 14:30:00 ANDIE miller [facility] 2021-05-01 2021-05-01 Outpatient R [facility] [id number] Univers 14:30:00 14:30:00 GERI miller [facility] 2021-04-26 2021-04-26 Outpatient R BEA [facility] MAURO [id number] Univers 13:19:00 15:45:00 GERI itchapo [facility] 2021-04-26 2021-04-26 Hospital [facility] 1.2.840.114 [id number] Univers 13:19:00 15:45:00 Encounter Geri TRIMBLE 350.1.13.10 ity of [place].2.[place] SURGICAL [phone] [facility] [address] 2021-04-26 2021-04-26 Surgery [facility] 1.2.840.114 [id number] Univers 13:00:00 14:55:00 Geri TRIMBLE 350.1.13.10 i ty of [place] SUR[place]ICAL [id number] [facility] [address] 2021-04-26 2021-04-26 Orders Doctor NEVAREZ 1.2.840.114 [id number] Univers 00:00:00 00:00:00 Only UnassignedPATRICIO 350.1.13.10 ity of [place] [facility] 4.2.7.2.686 Juan as [id number] [facility] [address] 2021-04-25 2021-04-25 Laboratory Only, Adc Test [facility] 1.2.840. 114 [id number] Univers 08:30:00 08:45:00 Only Geri Figueredo 350.1.13 .10 ity of [place] C[place]US [id number] [facility] [address] 2021-04-25 2021-04-25 Outpatient R [facility] [id number] Univers 08:30:00 08:30:00 GERI miller [facility] 2021-04-25 2021-04-25 Outpatient R [facility] [id number] Univers 08:30:00 08:30:00 GERI miller [facility] 2021-04-25 2021-04-25 Orders Doctor NEVAREZ 1.2.840.114 [id number] Univers 00:00:00 00:00:00 Only Unassigned, PATRICIO 350.1.13.10 ity of [place] [facility] 4.2.7.2.686 [place] as [id number] [address] 2021-04-23 2021-04-23 Outpatient R [facility] [id number] Univers 10:00:00 10:00:00 [facility] 2021-04-23 2021-04-23 Outpatient R [facility] [id number] Univers 00:00:00 00:00:00 [facility] 2021-04-23 2021-04-23 [facility] [id number] Univers 00:00:00 00:00:00 [facility] 2021-04-18 2021-04-18 Office [facility] 1.2.840.114 [id number] Univers 16:00:00 16:15:00 Visit [facility] 350.1.13.10 it y of [place] 4.2.7.2.686 [facility] [phone] [facility] ical [facility] [address] [place] 2021-04-18 2021-04-18 [facility]patient [facility] [id number] Univers 16:00:00 16:00:00 GERI chapo [facility] 2021-04-18 2021-04-18 Outpatient Sco[facility] [id number] Univers 16:00:00 16:00:00 GERI miller [facility] 2021-04-18 2021-04-18 Orders Doctor GERI 1.2.840.114 [id number] Univers 00:00:00 00:00:00 Only Unassigned, PATRICIO 350.1.13.10 ity of [place] [facility] 4.2.7.2.686 [place] as [phone] [address] 2021-04-11 2021-04-11 Automobile Service Advisor 1, Adc Lab [facility] 1.2.840.114 [id number] Univers 10:00:00 10:15:00 Visit Mamta Westbrook 350.1.13.10 ity of [place] 4.2.7.2.686 [facility] [id number] [facility] [address] 2021-04-11 2021-04-11 Outpatient R [facility] [id number] Univers 10:00:00 10:00:00 MAMTA [facility] 2021-04-11 2021-04-11 [facility]patient [facility] [id number] Univers 10:00:00 10:00:00 MAMTA [facility] 2021-04-11 2021-04-11 Orders Doctor GERI 1.2.840.114 [id number] Univers 00:00:00 00:00:00 Only Unassigned, PATRICIO 350.1.13.10 ity of [facility] 4.2.7.2.686 [place] as [id number] [facility] [address] 2021-04-08 2021-04-08 Outpatient [facility] [id number] Univers 17:00:00 17:00:00 [facility] 2021-04-08 2021-04-08 Outpatient [facility] [id number] Univers 17:00:00 17:00:00 [facility] 2021-04-08 2021-04-08 Outpatient [facility] [id number] Univers 16:00:00 16:49:09 [facility] 2021-04-08 2021-04-08 Office Margaret Martinez 1.2.840.114 [id number] Univers 16:00:00 16:49:09 Visit Shantelle Dowit 350.1.13.10 ity of [facility] 4.2.7.2.686 [place] as [id number] [facility] [address] 2021-04-08 2021-04-08 Outpatient [facility] [id number] Univers 16:00:00 16:49:09 [facility] 2021-04-08 2021-04-08 Outpatient [facility] [id number] Univers 16:00:00 16:49:09 [facility] 2021-04-08 2021-04-08 Outpatient [facility] [id number] Univers 16:00:00 16:49:09 ANDIE ity [facility] 2021-04-08 2021-04-08 Outpatient R [facility] [id number] Univers 16:00:00 16:00:00 ity of [facility] 2021-03-06 2021-03-06 Outpatient [facility] [id number] Univers 08:00:00 08:00:00 ANDIE ity [facility] 2021-03-04 2021-03-04 Telephone GAUDENCIO Martinez 1.2.840.114 [id number] Univers 00:00:00 00:00:00 Margaret H 350.1.13.10 it y of [place] 4.2.7.2.686 [place] [id number] [address] 2021-02-27 2021-02-27 Telephone GAUDENCIO Martinez 1.2.840.114 [id number] Univers 00:00:00 00:00:00 Margaret H 350.1.13.10 it y of [place] 4.2.7.2.686 [place] as [phone] [address] 2021-02-20 2021-02-20 Outpatient [facility] [id number] Univers 08:00:00 08:00:00 ANDIE ity [facility] 2021-02-19 2021-02-19 Case GAUDENCIO Martinez 1.2.840.114 [id number] Univers 00:00:00 00:00:00 Management Margaret H 350.1.13.10 ity of [place] 4.2.7.2.686 [place] [id number] [address] 2021-02-18 2021-02-18 Outpatient [facility] [id number] Univers 15:30:00 15:30:00 ANDIE ity [facility] 2021-02-18 2021-02-18 Outpatient R [facility] [id number] Univers 15:30:00 15:30:00 ANDIE ity [facility] 2021-02-06 2021-02-06 Outpatient R [facility] [id number] Univers 10:00:00 10:00:00 [facility] 2021-02-04 2021-02-04 Outpatient [facility] [id number] Univers 15:00:00 15:00:00 [facility] 2021-02-04 2021-02-04 Outpatient R [facility] [id number] Univers 15:00:00 15:00:00 [facility] 2021-02-04 2021-02-04 Outpatient R [facility] [id number] Univers 15:00:00 15:00:00 [facility] 2021-01-24 2021-01-24 Patient Anita Sharma 1.2.840.114 [id number] Univers 00:00:00 00:00:00 Outreach E JEONG 350.1.13.10 i ty [facility] [place] [id number] [facility] [address] [place] 2021-01-23 2021-01-23 Outpatient [facility] [id number] Univers 08:30:00 08:30:00 [facility] 2021-01-23 2021-01-23 Outpatient [facility] [id number] Univers 08:30:00 08:30:00 [facility] 2021-01-23 2021-01-23 Refill GAUDENCIO Dow 1.2.840.114 [id number] Univers 00:00:00 00:00:00 Andie H 350.1.13.10 it y of [place] 4.2.7.2.686 [place] [id number] [facility] [address] 2021-01-22 2021-01-22 Outpatient [facility] [id number] Univers 15:00:00 15:00:00 TEJO ity [facility] 2021-01-22 2021-01-22 Outpatient R [facility]IN [facility] [id number] Univers 15:00:00 15:00:00 [facility] 2021-01-21 2021-01-21 Automobile Service Advisor Sergio, Adc Lab Main [facility] 1.2.8 40.114 [id number] Univers 12:56:26 13:11:26 Visit Andie Dow 350.1.13.10 ity [place] [address].[place] [id number] [address] 2021-01-21 2021-01-21 Outpatient R [facility] [id number] Univers 10:30:00 10:30:00 [facility] 2021-01-21 2021-01-21 Outpatient R [facility] [id number] Univers 10:30:00 10:30:00 [facility] 2021-01-21 2021-01-21 Outpatient R [facility] [id number] Univers 10:30:00 10:30:00 [facility] 2021-01-17 2021-01-17 Refill GAUDENCIO Dow 1.2.840.114 [id number] Univers 00:00:00 00:00:00 Andie H 350.1.13.10 it y of [address]686 [place] [phone] [address] 2021-01-17 2021-01-17 Refill GAUDENCIO Dow 1.2.840.114 [id number] Univers 00:00:00 00:00:00 Andie H 350.1.13.10 it y of [facility] 42.7.2.686 [place] [id number] [address] 2021-01-17 2021-01-17 Patient GAUDENCIO Dow 1.2.840.114 [id number] Univers 00:00:00 00:00:00 Secure Msg Andie H 350.1.13.10 ity of [place] 4.2.7.2.686 [place] [id number] [facility] [address] 2021-01-16 2021-01-16 Refkimi MendezPaloma GAUDENCIO 1.2.840.114 [id number] Univers 00:00:00 00:00:00 Andie H 350.1.13.10 it y of [place] 4.2.7.2.686 [place] [phone] [facility] [address] 2021-01-15 2021-01-15 Patient Anita Sharma 1.2.840.114 [id number] Univers 00:00:00 00:00:00 Outreach Gilberto JEONG 350.1.13.10 i ty [place] [id number] [facility] [address] 2021-01-15 2021-01-15 Transition YUKI Najera 1.2.840.114 [id number] Univers 00:00:00 00:00:00 of Care Joy DUPREEY 350.1.13.10 it [place] of [place] [id number] [facility] [address] 2021-01-11 2021-01-14 Hospital [facility] 1.2.840.1 [id number] Univers 12:29:00 19:00:00 Encounter Arturo Juarez 350.1.1 3.10 ity of [facility] 4.2.7.2.6 [place] [id number] [facility] [address] 2021-01-11 2021-01-14 Inpatient X PAM [facility] [id number] Univers 12:29:00 19:00:00 MAMTA chapo [facility] 2021-01-11 2021-01-14 Inpatient X PAM [facility] [id number] Univers 12:29:00 19:00:00 MAMTA chapo [facility] 2021-01-11 2021-01-14 Inpatient X PAM [facility] [id number] Univers 12:29:00 19:00:00 MAMTA angela [facility] 2021-01-09 2021-01-09 Outpatient R [facility] [id number] Univers 08:30:00 08:30:00 ANDIE miller [facility] 2021-01-09 2021-01-09 Outpatient R [facility]OMA, [facility] [id number] Univers 08:30:00 08:30:00 ANDIE chapo [facility] 2021-01-08 2021-01-08 Emergency X [facility] ERT [id number] Univers 14:49:00 17:51:00 ity [facility] 2021-01-08 2021-01-08 Emergency TRAUMA [id number] Univers 14:49:00 17:51:00 CENTER [id number] [id number] [id number] [address] 2021-01-08 2021-01-08 Outpatient R Y[facility]IN [facility] [id number] Univers 13:00:00 14:51:09 DACIA miller [facility] 2021-01-08 2021-01-08 Office Mariana Avina [id number]. [id number] Univers 12:27:56 14:51:09 Visit Dacia Hamlin H [id number] ity of BUILDING 4.2.7.2.686 [place] as [phone] [address] 2021-01-08 2021-01-08 Office Mariana Avina 1.2.840. [id number] Univers 12:27:56 14:51:09 Visit Dacia Hamlin H [id number] ity of BUILDING [id number] [place] as [id number] [address] 2021-01-08 2021-01-08 Outpatient Scooby AVINA [facility] [id number] Univers 13:00:00 13:00:00 MARIANA mayenchapo [facility] 2021-01-08 2021-01-08 Outpatient R FABRICE [facility] [id number] Univers 13:00:00 13:00:00 MARIANA ity [facility] 2021-01-08 2021-01-08 Outpatient R FABRICE, [facility] [id number] Univers 12:30:00 12:30:00 MARIANA ity [facility] 2021-01-08 2021-01-08 Outpatient R [facility] [id number] Univers 12:30:00 12:30:00 MARIANA ity [facility] 2020-12-31 2020-12-31 [facility] 1.2.840.114 [id number] Univers 11:40:40 23:59:00 Encounter Andie [place] [id number] ity [facility] [id number] [facility] [id number] [facility] [address] 2020-12-31 2020-12-31 [facility] 1.2.840.114 [id number] Univers 11:39:47 11:39:47 Encounter Andie Trimble [id number] ity [facility] [id number] [facility] [phone] [facility] [address] 2020-12-31 2020-12-31 Outpatient R [facility] [id number] Univers 00:00:00 00:00:00 ANDIE ity [facility] 2020-12-31 2020-12-31 Outpatient R [facility] [id number] Univers 00:00:00 00:00:00 ANDIE ity [facility] 2020-12-28 2020-12-28 Patient GAUDENCIO Martinez .2.840.114 [id number] Univers 00:00:00 00:00:00 Secure Msg Robles Unruly [id number] ity of [facility] [id number] Juan [id number] [facility] [address] 2020-12-28 2020-12-28 Case RUBY Dow .2.840.114 [id number] Univers 00:00:00 00:00:00 Management [facility] [id number] [id number] [id number] [facility] [address] 2020-12-27 2020-12-27 Nurse 5, [facility] Infusion Chair [facility]ERS[facility] 1. 2.840.114 [id number] Univers 12:06:05 15:06:05 Visit Andie Dow [facility] [id number] [id number] [id number] [facility] [address] 2020-12-27 2020-12-27 Nurse 5, [facility] Infusion Chair UN[facility]ERSIT 1. 2.840.114 [id number] Univers 12:06:05 15:06:05 Visit Andie Dow [facility] [id number] [id number] [id number] [address] 2020-12-27 2020-12-27 [facility] [id number] Univers 11:30:00 11:30:00 [facility] 2020-12-27 2020-12-27 [facility] [id number] Univers 11:30:00 11:30:00 [facility] 2020-12-26 2020-12-26 [facility] [id number] Univers 08:30:00 08:30:00 [facility] 2020-12-26 2020-12-26 [facility] [id number] Univers 08:30:00 08:30:00 [facility] 2020-12-24 2020-12-24 [facility] [id number] Univers 10:30:00 11:48:12 ANDIE miller [facility] 2020-12-24 2020-12-24 Automobile Service Advisor [facility] UN[facility]ERSIT 1.2.840.114 [id number] Univers 10:50:17 11:05:17 Visit Andie Dow [facility] [id number] [id number] [id number] [facility] [address] 2020-12-24 2020-12-24 Outpatient R [facility] [id number] Univers 10:30:00 10:30:00 ANDIE ity [facility] 2020-12-20 2020-12-20 Outpatient R [facility] [id number] Univers 00:00:00 00:00:00 ANDIE ity [facility] 2020-12-20 2020-12-20 Outpatient R [facility] [id number] Univers 00:00:00 00:00:00 ANDIE [facility] 2020-12-13 2020-12-13 Outpatient R [facility] [id number] Univers 00:00:00 00:00:00 [facility] 2020-12-13 2020-12-13 Outpatient R [facility]OMA[facility] [id number] Univers 00:00:00 00:00:00 [facility] 2020-12-13 2020-12-13 Outpatient R [facility]OMA [facility] [id number] Univers 00:00:00 00:00:00 [facility] 2020-12-13 2020-12-13 Outpatient R [facility]OMA [facility] [id number] Univers 00:00:00 00:00:00 [facility] 2020-12-12 2020-12-12 Nurse 2, [facility] Infusion Chair UN[facility]ERSIT 1. 2.840.114 [id number] Univers 08:24:09 11:24:09 Visit Dacia Hamlin [facility] [id number] it[id number] [id number] [facility] [address] 2020-12-12 2020-12-12 Outpatient R [facility]IN [facility] [id number] Univers 08:30:00 08:30:00 [facility] 2020-12-12 2020-12-12 Outpatient R YAKELIN[facility] [id number] Univers 08:30:00 08:30:00 DACIA itchapo [facility] 2020-12-10 2020-12-10 Automobile Service Advisor 1, Adc Lab [facility] 1.2.840.114 [id number] Univers 16:10:23 16:25:23 Visit Mamta [place] [id number] ity of [id number] [place] [facility] [phone] [facility] [address] 2020-12-10 2020-12-10 Outpatient R PIETRO[facility] [id number] Univers 10:15:00 10:15:00 MAMTA chapo [facility] 2020-12-10 2020-12-10 Outpatient R PIETRO, [facility] [id number] Univers 10:15:00 10:15:00 MAMTA chapo [facility] 2020-12-10 2020-12-10 Orders Doctor NEVAREZ 1.2.840.114 [id number] Univers 00:00:00 00:00:00 Only Unassigned, PATRICIO [id number] ity of [place] [facility] 4.2.7.2.686 Juan as [id number] [facility] [address] 2020-12-09 2020-12-09 Patient GAUDENCIO Martinez 1.2.840.114 [id number] Univers 00:00:00 00:00:00 Secure Msg Margaret Tolliver [id number] ity of [facility] [id number] Juan as [id number] [facility] [address] 2020-12-03 2020-12-04 Outpatient R MANISHA [facility] [id number] Univers 12:45:00 09:32:44 MOSES itchapo [facility] 2020-12-03 2020-12-03 Office JaradMargaret anrdews [facility] 1.2.840.114 [id number] Univers 14:36:49 16:51:48 Visit Andie Dow [id number] ity of [facility] [id number] Juan as [id number] [facility] [address] 2020-12-03 2020-12-03 Outpatient R PALOMA [facility] [id number] Univers 14:30:00 16:51:48 ANDIE itchapo [facility] 2020-12-03 2020-12-03 Outpatient R [facility]OMA [facility] [id number] Univers 14:30:00 14:30:00 ANDIE itchapo [facility] 2020-12-03 2020-12-03 [facility] [id number] Univers 14:30:00 14:30:00 ANDIE [facility] 2020-12-03 2020-12-03 Automobile Service Advisor [facility] 1.2.840.114 [id number] Univers 14:02:06 14:17:06 Visit Moses Dyer [facility] HEALTH [id number] it[id number] [id number] [facility] [address] 2020-12-03 2020-12-03 Outpatient R MANISHA [facility] [id number] Univers 12:45:00 12:45:00 [facility] 2020-11-28 2020-11-28 Nurse 7, [facility] Infusion Chair UNIVERSIT 1. 2.840.114 [id number] Univers 08:21:59 10:51:59 Visit Andie Dow [facility] [id number] it[id number] [id number] [facility] [address] 2020-11-28 2020-11-28 Outpatient R PALOMA [facility] [id number] Univers 08:00:00 08:00:00 ANDIE itchapo [facility] 2020-11-28 2020-11-28 Outpatient R [facility] [id number] Univers 08:00:00 08:00:00 ANDIE itchapo [facility] 2020-11-28 2020-11-28 Outpatient R [facility]OMA [facility] [id number] Univers 08:00:00 08:00:00 [facility] 2020-11-28 2020-11-28 Case GAUDENCIO Martinez 1.2.840.114 [id number] Univers 00:00:00 00:00:00 Management Margaret Tolliver [id number] ity of [facility] [id number] Juan [id number] [facility] [address] 2020-11-26 2020-11-26 Automobile Service Advisor 1, Adc Lab [facility] 1.2.840.114 [id number] Univers 11:11:45 11:26:45 Visit Paloma Andie [place] [id number] ity of [place] [id number] [facility] [id number] [facility] [address] 2020-11-26 2020-11-26 Outpatient R [facility] [id number] Univers 10:15:00 10:15:00 [facility] 2020-11-26 2020-11-26 Outpatient R PALOMA [facility] [id number] Univers 10:15:00 10:15:00 [facility] 2020-11-01 2020-11-01 Outpatient R PIETRO [facility] [id number] Univers 13:00:00 13:00:00 MAMTA [facility] 2020-11-01 2020-11-01 Outpatient R PIETRO [facility] [id number] Univers 13:00:00 13:00:00 MAMTA [facility] 2020-10-26 2020-10-26 Outpatient R PALOMA [facility] [id number] Univers 00:00:00 00:00:00 [facility] 2020-10-26 2020-10-26 Outpatient R [facility]OMA [facility] [id number] Univers 00:00:00 00:00:00 [facility] 2020-10-26 2020-10-26 Outpatient R [facility]OMA [facility] [id number] Univers 00:00:00 00:00:00 [facility] 2020-10-262020-10-26 Outpatient R [facility]OMA [facility] [id number] Univers 00:00:00 00:00:00 [facility] 2020-10-26 2020-10-26 Outpatient R [facility]OMA [facility] [id number] Univers 00:00:00 00:00:00 [facility] 2020-10-26 2020-10-26 Outpatient R [facility]OMA [facility] [id number] Univers 00:00:00 00:00:00 [facility] 2020-10-22 2020-10-22 Office MichelleMargaret Nancy RATLIFF 1.2.840.114 [id number] Univers 15:04:29 16:15:04 Visit Andie Dow [id number] ity [facility] [id number] Juan as [id number] [address] 2020-10-22 2020-10-22 Outpatient R PALOMA [facility] [id number] Univers 15:00:00 15:00:00 [facility] 2020-10-22 2020-10-22 [facility]patient [facility] [id number] Univers 13:00:00 13:00:00 [facility] 2020-09-25 2020-09-25 Outpatient Scooby DYER [facility] [id number] Univers 15:00:00 15:00:00 [facility] 2020-09-12 2020-09-12 Outpatient R [facility]OMA [facility] [id number] Univers 00:00:00 00:00:00 [facility] 2020-09-07 2020-09-07 Outpatient R [facility]OMA [facility] [id number] Univers 00:00:00 00:00:00 [facility] 2020-09-07 2020-09-07 Outpatient Scooby DOW [facility] [id number] Univers 00:00:00 00:00:00 [facility] 2020-09-07 2020-09-07 Outpatient R PALOMA [facility] [id number] Univers 00:00:00 00:00:00 [facility] 2020-09-03 2020-09-03 Outpatient R PALOMA [facility] [id number] Univers 13:30:00 13:30:00 [facility] 2020-07-30 2020-07-30 Outpatient Scooby DOW [facility] [id number] Univers 13:30:00 13:30:00 [facility] 2020-07-20 2020-07-20 Outpatient Scooby [facility] [id number] Univers 10:00:00 10:00:00 GERI [facility] 2020-07-16 2020-07-16 [facility] [id number] Univers 10:00:00 10:00:00 JOVON [facility] 2020-07-09 2020-07-09 Outpatient Scooby DOW [facility] [id number] Univers 15:00:00 15:00:00 [facility] 2020-07-06 2020-07-06 Outpatient Scooby [facility] [id number] Univers 10:30:00 10:30:00 GERI [facility] 2020-06-14 2020-06-14 Outpatient Scooby DOW [facility] [id number] Univers 00:00:00 00:00:00 [facility] 2020-06-14 2020-06-14 Outpatient Scooby DOW [facility] [id number] Univers 00:00:00 00:00:00 [facility] 2020-06-14 2020-06-14 Outpatient Scooby DOW [facility] [id number] Univers 00:00:00 00:00:00 [facility] 2020-06-08 2020-06-08 Outpatient Scooby [facility]O [facility] [id number] Univers 10:30:00 10:30:00 GERI [facility] 2020-06-06 2020-06-06 Outpatient Scooby HARP [facility] [id number] Univers 10:00:00 10:00:00 SYLVIA chapo [facility] 2020-06-04 2020-06-04 Outpatient Scooby BUCKLEY [facility] [id number] Univers 14:00:00 14:00:00 OMI [facility] 2020-06-01 2020-06-01 Outpatient Scooby [facility] [id number] Univers 11:15:00 11:15:00 GERI miller [facility] 2020-06-01 2020-06-01 Outpatient Scooby [facility] [id number] Univers 10:00:00 10:00:00 GERI [facility] 2020-05-28 2020-05-28 Outpatient Scooby HARP [facility] [id number] Univers 11:30:00 11:30:00 SYLVIA [facility] 2020-05-17 2020-05-17 Outpatient Scooby [facility]O [facility] [id number] Univers 14:15:00 14:15:00 GERI [facility] 2020-05-15 2020-05-15 Outpatient Scooby DOW [facility] [id number] Univers 11:30:00 11:30:00 ANDIE [facility] 2020-05-14 2020-05-14 Outpatient Scooby BUCKLEY [facility] [id number] Univers 16:00:00 16:00:00 OMI [facility] 2020-05-11 2020-05-11 Outpatient Scooby [facility] [id number] Univers 11:00:00 12:13:47 GERI [facility] 2020-05-11 2020-05-11 Outpatient Scooby [facility] [id number] Univers 11:00:00 12:13:47 GERI [facility] 2020-05-11 2020-05-11 Outpatient Scooby [facility] [id number] Univers 11:00:00 11:00:00 [facility] 2020-05-07 2020-05-07 Outpatient Scooby BUCKLEY [facility] [id number] Univers 13:00:00 13:00:00 OMI [facility] 2020-05-03 2020-05-03 Outpatient R BEA [facility] [id number] Univers 14:45:00 14:45:00 GERI chapo [facility] 2020-04-30 2020-04-30 Outpatient R MARCIO [facility] [id number] Univers 14:00:00 14:00:00 OMI [facility] 2020-04-23 2020-04-26 Inpatient R BEA [facility] MAURO [id number] Univers 07:42:00 16:50:00 GERI [facility] 2020-04-20 2020-04-20 Outpatient R PIETRO [facility] [id number] Univers 11:30:00 11:30:00 MAMTA [facility] 2020-04-12 2020-04-12 Outpatient R PALOMA [facility] [id number] Univers 11:00:00 15:21:53 [facility] 2020-04-12 2020-04-12 Outpatient R [facility]OMA [facility] [id number] Univers 11:00:00 11:00:00 ANDIE [facility] 2020-04-10 2020-04-10 Outpatient R [facility]OMA [facility] [id number] Univers 09:00:00 16:25:55 ANDIE [facility] 2020-04-10 2020-04-10 Outpatient R [facility]OMA [facility] [id number] Univers 09:00:00 09:00:00 ANDIE [facility] 2020-04-06 2020-04-06 Outpatient R [facility]OMA [facility] [id number] Univers 09:00:00 12:38:59 ANDIE [facility] 2020-04-06 2020-04-06 Outpatient R [facility]OMA [facility] [id number] Univers 09:00:00 09:00:00 ANDIE chapo [facility] 2020-04-05 2020-04-05 Outpatient Scooby [facility]O [facility] [id number] Univers 15:00:00 15:00:00 GERI chapo [facility] 2020-04-05 2020-04-05 Outpatient R [facility]OMA [facility] [id number] Univers 10:00:00 10:00:00 [facility] 2020-04-03 2020-04-03 Outpatient R PALOMA [facility] [id number] Univers 09:00:00 17:54:45 [facility] 2020-04-03 2020-04-03 Outpatient R [facility]OMA [facility] [id number] Univers 09:00:00 09:00:00 [facility] 2020-03-30 2020-03-30 Outpatient R PALOMA [facility] [id number] Univers 09:00:00 09:00:00 [facility] 2020-03-30 2020-03-30 Outpatient R PALOMA, [facility] [id number] Univers 09:00:00 09:00:00 [facility] 2020-03-29 2020-03-29 Outpatient R PALOMA [facility] [id number] Univers 10:00:00 10:00:00 [facility] 2020-03-29 2020-03-29 Outpatient R [facility]OMA [facility] [id number] Univers 10:00:00 10:00:00 [facility] 2020-03-28 2020-03-28 Outpatient R [facility]OMA [facility] [id number] Univers 08:30:00 08:30:00 [facility] 2020-03-28 2020-03-28 Outpatient R MARCIO [facility] [id number] Univers 08:30:00 08:30:00 OMI [facility] 2020-03-27 2020-03-27 Outpatient R PALOMA [facility] [id number] Univers 09:00:00 11:09:23 [facility] 2020-03-27 2020-03-27 Outpatient R [facility]OMA [facility] [id number] Univers 09:00:00 09:00:00 ANDIE chapo [facility] 2020-03-26 2020-03-26 Outpatient R MARCIO [facility] [id number] Univers 14:00:00 16:29:12 OMI [facility] 2020-03-26 2020-03-26 Outpatient R MARCIO [facility] [id number] Univers 14:00:00 14:00:00 OMI [facility] 2020-03-23 2020-03-23 Outpatient R PALOMA [facility] [id number] Univers 09:00:00 09:00:00 ANDIE [facility] 2020-03-23 2020-03-23 Outpatient Scooby DOW [facility] [id number] Univers 09:00:00 09:00:00 [facility] 2020-03-21 2020-03-21 Outpatient Scooby GUPTA [facility] [id number] Univers 11:30:00 12:28:10 [facility] 2020-03-21 2020-03-21 Outpatient Scooby GUPTA [facility] [id number] Univers 11:30:00 11:30:00 [facility] 2020-03-20 2020-03-20 Outpatient Scooby DOW [facility] [id number] Univers 09:00:00 12:10:54 [facility] 2020-03-20 2020-03-20 Outpatient Scooby DOW [facility] [id number] Univers 09:00:00 09:00:00 ANDIE [facility] 2020-03-19 2020-03-19 Outpatient Scooby DOW [facility] [id number] Univers 10:32:51 10:33:00 [facility] 2020-03-19 2020-03-19 Outpatient Scooby DOW [facility] [id number] Univers 00:00:00 00:00:00 [facility] 2020-03-14 2020-03-14 Outpatient R ORACIO [facility] [id number] Univers 14:00:00 14:00:00 GRAZYNA chapo [facility] 2020-03-14 2020-03-14 Outpatient R MARCIO [facility] [id number] Univers 09:00:00 09:00:00 OMI chapo [facility] 2020-03-14 2020-03-14 Outpatient R MARCIO [facility] [id number] Univers 09:00:00 09:00:00 OMI [facility] 2020-03-05 2020-03-05 Emergency X , [facility] ERT [id number] Univers 12:36:00 16:55:00 DHARA ity [facility] 2020-03-01 2020-03-01 Outpatient R PALOMA, [facility] [id number] Univers 13:00:00 16:33:39 ANDIE miller [facility] 2020-03-01 2020-03-01 Outpatient R BEA [facility] [id number] Univers 14:00:00 14:00:00 GERI chapo [facility] 2020-03-01 2020-03-01 Outpatient R PALOMA [facility] [id number] Univers 13:00:00 13:00:00 ANDIE chapo [facility] 2020-02-28 2020-02-28 Outpatient R PALOMA, [facility] [id number] Univers 09:00:00 13:50:20 ANDIE chapo [facility] 2020-02-28 2020-02-28 Outpatient R PALOMA, [facility] [id number] Univers 09:00:00 09:00:00 ANDIE miller [facility] 2020-02-24 2020-02-24 Outpatient R PALOMA [facility] [id number] Univers 11:00:00 11:00:00 ANDIE chapo [facility] 2020-02-24 2020-02-24 Outpatient R PALOMA [facility] [id number] Univers 11:00:00 11:00:00 ANDIE chapo [facility] 2020-02-23 2020-02-23 Outpatient R MANISHA [facility] [id number] Univers 14:30:00 14:30:00 MOSES [facility] 2020-02-23 2020-02-23 Outpatient R MANISHA, [facility] [id number] Univers 14:30:00 14:30:00 MOSES mayeny [facility] 2020-02-21 2020-02-21 Outpatient R BRIAN, [facility] [id number] Univers 08:30:00 08:30:00 COLIN miller o f [facility] 2020-02-21 2020-02-21 Outpatient R BRIAN, [facility] [id number] Univers 08:30:00 08:30:00 COLIN mayeny o rahda [facility] 2020-02-20 2020-02-20 Outpatient R MARCIO [facility] [id number] Univers 13:30:00 14:36:17 OMI chapo [facility] 2020-02-20 2020-02-20 Outpatient R ROGEESTERRANJITH [facility] [id number] Univers 13:30:00 13:30:00 OMI [facility] 2020-02-20 2020-02-20 Outpatient R BRIAN [facility] [id number] Univers 11:30:00 11:30:00 COLIN miller o radha [facility] 2020-02-20 2020-02-20 Outpatient R BRIAN, [facility] [id number] Univers 11:30:00 11:30:00 COLIN miller o radha [facility] 2020-02-13 2020-02-13 Outpatient R PALOMA, [facility] [id number] Univers 14:34:43 14:34:43 ANDIE [facility] 2020-01-31 2020-01-31 Outpatient R MARCIO, [facility] [id number] Univers 10:00:00 10:00:00 OMI [facility] 2020-01-30 2020-01-30 Outpatient R MARCIO, [facility] [id number] Univers 13:30:00 13:30:00 OMI [facility] 2020-01-30 2020-01-30 Outpatient R ChapoSUSANESTERRANJITH, [facility] [id number] Univers 12:00:00 12:00:00 OMI [facility] 2020-01-20 2020-01-20 Outpatient R MARCIO [facility] [id number] Univers 14:30:00 14:30:00 OMI [facility] 2020-01-18 2020-01-18 Outpatient R MARCIO [facility] [id number] Univers 10:30:00 10:30:00 OMI [facility] 2020-01-18 2020-01-18 Outpatient R MARCIO [facility] [id number] Univers 10:30:00 10:30:00 OMI [facility] 2020-01-17 2020-01-17 Outpatient R PALOMA [facility] [id number] Univers 00:00:00 00:00:00 ANDIE [facility] 2020-01-17 2020-01-17 Outpatient R PALOMA [facility] [id number] Univers 00:00:00 00:00:00 ANDIE [facility] 2020-01-04 2020-01-04 Outpatient R ORACIO [facility] [id number] Univers 13:45:00 13:45:00 GRAZYNA [facility] 2020-01-04 2020-01-04 Outpatient R ORACIO [facility] [id number] Univers 13:30:00 13:30:00 GRAZYNA [facility] 2020-01-02 2020-01-02 Outpatient R MARCIO [facility] [id number] Univers 16:15:00 16:15:00 OMI [facility] 2020-01-02 2020-01-02 Outpatient R ChapoSUSANESTERRANJITH [facility] [id number] Univers 14:30:00 14:30:00 OMI [facility] 2019-12-22 2019-12-22 Outpatient R BEA [facility] [id number] Univers 15:45:00 15:45:00 GERI [facility] 2019-12-21 2019-12-21 Outpatient R ORACIO [facility] [id number] Univers 13:45:00 13:45:00 GRAZYNA [facility] 2019-12-15 2019-12-15 Outpatient R NARAYANAN [facility] [id number] Univers 13:30:00 13:30:00 GRAZYNA angela [facility] 2019-12-13 2019-12-13 Outpatient R JAMELCHIKISPARKER [facility] [id number] Univers 13:00:00 13:00:00 DAISYGUEVARAEva ity o f [facility] 2019-12-06 2019-12-06 Outpatient R MINI DONATO [facility] [id number] Univers 14:30:00 14:30:00 DONATO, MINI chapo [facility] 2019-12-06 2019-12-06 Outpatient R DONATO MINI [facility] [id number] Univers 14:30:00 14:30:00 TANMAY MINI [facility] 2019-11-30 2019-11-30 Outpatient R [facility] [id number] Univers 13:30:00 13:30:00 GRAZYNA [facility] 2019-11-29 2019-11-30 [facility] ERT [id number] Univers 19:24:00 03:15:00 DOT, faheemy [facility] 2019-11-29 2019-11-30 Emergency Unknown, Attending TRAUMA 1.2.8 40.114 [id number] Univers 19:24:00 03:15:00 [facility] 350. 1.13.10 [place] [id number] [facility] [address] [place] 2019-11-30 2019-11-30 Case Alanna NEVAREZ 1.2.840.114 [id number] Univers 00:00:00 00:00:00 Management , Jadyn CURRY 350.1.13.10 ity of HOSPITAL 4.2.7.2.686 [place] as [id number] [facility] [address] [place] 2019-11-29 2019-11-29 [facility] Grazyna Narayanan 1.2 .840.114 [id number] Univers 13:20:35 19:23:00 Encounter 1Latanya [facility] Jon Linac H 35 0.1.13.10 ity of BUILDING 4.2.7.2.686 [place] as [id number] [address] 2019-11-29 2019-11-29 [facility] [id number] Univers 15:00:00 17:15:15 GRAZYNA [facility] 2019-11-29 2019-11-29 Treatment GAUDENCIO Narayanan 1.2.840.114 [id number] Univers 13:21:53 17:15:15 Management Grazyna Tolliver 350.1.13.10 ity of BUILDING 4.2.7.2.686 [place] as [id number] [address] 2019-11-29 2019-11-29 Outpatient R [facility] [id number] Univers 14:00:00 14:00:00 ANDIE [facility] 2019-11-29 2019-11-29 Outpatient R TANMAY MINI [facility] [id number] Univers 11:00:00 11:00:00 MINI DONATO [facility] 2019-11-28 2019-11-28 [facility] NarayananGrazyna 1.2 .840.114 [id number] Univers 13:12:11 23:59:00 Encounter GiniLatanya Linac H 35 0.1.13.10 ity of BUILDING 4.2.7.2.686 [place] as [id number] [address] 2019-11-28 2019-11-28 [facility] 1028 [id number] Univers 14:15:00 16:02:59 OMI [facility] 2019-11-28 2019-11-28 Automobile Service Advisor [facility] UNIVERSIT 1.2.840.114 [id number] Univers 14:05:32 14:20:32 Visit Omi Buckley [facility] 350.1.13.10 ity of CL[place] [phone] [address] 2019-11-28 2019-11-28 [facility] [id number] Univers 14:15:00 14:15:00 OMI [facility] 2019-11-28 2019-11-28 [facility] [id number] Univers 13:45:00 13:45:00 GRAZYNA itchapo [facility] 2019-11-28 2019-11-28 Outpatient R [facility]N [facility] [id number] Univers 13:30:00 13:30:00 GRAZYNA miller [facility] 2019-11-28 2019-11-28 Hospital Grazyna Narayanan 1.2 .840.114 [id number] Univers 13:11:39 13:11:39 Encounter 1, [facility] Linac H 35 0.1.13.10 ity of BUILDING 4.2.7.2.686 [place] as [phone] [facility] [address] [place] 2019-11-28 2019-11-28 Case GAUDENCIO Buckley 1.2.840.114 [id number] Univers 00:00:00 00:00:00 Management Omi H 350.1.13.10 ity of BUILDING 4.2.7.2.686 Juan as [id number] [facility] [address] [place] 2019-11-25 2019-11-25 Laboratory Only, Adc Test [facility] 1.2.840. 114 [id number] Univers 13:15:19 13:30:19 Only Andie Dow 350.1.13.10 it[place] of [place] [id number] [facility] [address] [place] 2019-11-25 2019-11-25 Outpatient R [facility] [id number] Univers 13:30:00 13:30:00 ANDIE miller [facility] 2019-11-25 2019-11-25 Automobile Service Advisor Sergio, Adc Lab Main [facility] 1.2.8 40.114 [id number] Univers 13:14:48 13:29:48 Visit Andie Dow 350.1.13.10 it[place] [facility] [phone] Wi dical [facility] 353 [facility] 2019-11-25 2019-11-25 Outpatient R [facility] [id number] Univers 06:15:00 06:15:00 GRAZYNA ity [facility] 2019-11-25 2019-11-25 Case LorenaGAUDENCIO mustafa 1.2.840.114 [id number] Univers 00:00:00 00:00:00 Management Omi H 350.1.13.10 ity of BUILDING 4.2.7.2.686 [place] as [phone] [facility] [address] [place] 2019-11-24 2019-11-24 Office Bea [facility] 1.2.840.114 [id number] Univers 15:03:27 17:58:25 Visit [facility] 350.1.13.10 it y of [place] 4.2.7.2.686 [place] [facility] - [phone] [facility] [address] 2019-11-15 2019-11-24 Office GAUDENCIO Narayanan 1.2.840.114 [id number] Univers 11:01:56 17:27:47 Visit Grazyna Tolliver 350.1.13.10 ity of BUILDING 4.2.7.2.686 [place] as [phone] [facility] [address] [place] 2019-11-24 2019-11-24 Outpatient Scooby [facility] [id number] Univers 15:30:00 15:30:00 GERI ity [facility] 2019-11-24 2019-11-24 Outpatient Scooby [facility] [id number] Univers 15:30:00 15:30:00 [facility] ity [facility] 2019-11-24 2019-11-24 Case Alanna NEVAREZ 1.2.840.114 [id number] Univers 00:00:00 00:00:00 Management , Jadyn CURRY 350.1.13.10 ity of [facility] 4.2.7.2.686 Juan as [id number] [facility] [address] 2019-11-16 2019-11-16 Hospital Grazyna Narayanan 1.2 .840.114 [id number] Univers 09:48:31 23:59:[address], [facility] Rad Oncology H 350.1.1 3.10 ity of BUILDING 4.2.7.2.686 [place] as [id number] [facility] [address] [place] 2019-11-16 2019-11-16 Outpatient [facility] [id number] Univers 11:00:00 11:00:00 GRAZYNA miller [facility] 2019-11-15 2019-11-15 Outpatient R [facility] [id number] Univers 11:00:00 14:28:03 GRAZYNA miller [facility] 2019-11-15 2019-11-15 Outpatient R BELENSUS[facility]ERRANJITH [facility] [id number] Univers 12:45:00 13:13:58 OMI [facility] 2019-11-15 2019-11-15 Automobile Service Advisor [facility] UNIVERSIT 1.2.840.114 [id number] Univers 12:43:33 12:58:33 Visit Omi Buckley [facility] 350.1.13.10 ity of [facility] 4.2.7.2.[place] [id number] [facility] [address] [place] 2019-11-15 2019-11-15 Outpatient R [facility] [id number] Univers 12:45:00 12:45:00 OMI chapo [facility] 2019-11-15 2019-11-15 Outpatient R [facility] [id number] Univers 11:00:00 11:00:00 GRAZYNA chapo [facility] 2019-11-15 2019-11-15 Orders Doctor GERI 1.2.840.114 [id number] Univers 00:00:00 00:00:00 Only Unassigned, PATRICIO 350.1.13.10 ity of [place] [facility] 4.2.7.2.686 Juan as [phone] [facility] [address] 2019 2019 Outpatient R [facility] [id number] Univers 14:00:00 14:00:00 OMI [facility] 2019 2019 Telemedici GAUDENCIO Buckley 1.2.840.11 [id number] Univers 07:47:31 08:17:31 ne Visit Omi Tolliver 350.1.13.10 i ty of BUILDING 4.2.7.2.686 [place] as [phone] [facility] [address] [place] 2019 2019 [id number] Univers 00:00:00 00:00:00 OMI ity [facility] 2019 2019 Refill chaposusanesterGAUDENCIO mustafa 1.2.840.114 [id number] Univers 00:00:00 00:00:00 Omi H 350.1.13.10 it y of [address]686 [place] as [phone] [place] [address] [place] 2019 2019 Orders Doctor GERI 1.2.840.114 [id number] Univers 00:00:00 00:00:00 Only Unassigned, PATRICIO 350.1.13.10 ity of [place] [address].2.7.2.686 Juan as [phone] [address] 2019-11-12 2019-11-12 [facility] [id number] Univers 00:00:00 00:00:00 OMI ity [facility] 2019-11-11 2019-11-11 Outpatient R [facility] [id number] Univers 13:10:01 23:59:00 OMI ity [facility] 2019-11-11 2019-11-11 [facility] 1.2.840.114 [id number] Univers 13:10:01 23:59:00 Encounter Omi [place] 350.1.13.10 ity of [place] 4.2.7.2.686 [facility] [phone] [address] 2019-11-11 2019-11-11 Outpatient R [facility] [id number] Univers 13:08:38 13:09:00 OIM ity [facility] 2019-11-11 2019-11-11 [facility] 1.2.840.114 [id number] Univers 13:00:00 13:09:00 Encounter Omi [place] 350.1.13.10 ity of [place] 4.2.7.2.686 [facility] [id number] [address] 2019-11-11 2019-11-11 Outpatient R [facility] [id number] Univers 00:00:00 00:00:00 OMI ity [facility] 2019-11-11 2019-11-11 Outpatient [place] [id number] Univers 00:00:00 00:00:00 OMI ity [facility] 2019-11-10 2019-11-10 Telephone LATANYA BuckleyNARGIS 1.2.840.114 [id number] Univers 00:00:00 00:00:00 Omi H 350.1.13.10 it y of [facility] 4.2.7.2.686 Juan as [phone] [address] 2019-11-08 2019-11-08 Outpatient [facility] [id number] Univers 10:39:48 23:59:00 OMI ity [facility] 2019-11-08 2019-11-08 Outpatient [facility] [id number] Univers 10:39:48 23:59:00 OMI ity [facility] 2019-11-08 2019-11-08 [facility] 1.2.840.114 [id number] 10:39:48 23:59:00 Encounter Omi [place] 350.1.13.10 [place] [address] [place] [address] [phone] [facility] 2019-11-08 2019-11-08 [facility] 1.2.840.114 [id number] Univers 10:39:48 23:59:00 Encounter Omi [place] 350.1.13.10 ity [facility] 4.2.7.2.686 [facility] [id number] [address] 2019-11-08 2019-11-08 Outpatient R [facility] [id number] Univers 00:00:00 00:00:00 OMI ity [facility] 2019-11-07 2019-11-07 Patient BenjiGAUDENCIO 1.2.840.114 [id number] Univers 00:00:00 00:00:00 Outreach Marti Tolliver 350.1.13.10 ity of BUILDING 4.2.7.2.686 [place] as [phone] [facility] [address] [place] 2019-10-31 2019-10-31 Outpatient R [facility] [id number] Univers 09:56:42 23:59:00 OMI ity [facility] 2019-10-31 2019-10-31 [facility] Marcio, UNIVERSIT 1.2.840.114 [id number] Univers 09:56:42 23:59:00 Encounter Omi Y HEALTH 350.1.13.10 ity of CL[place] 4[place] [id number] [facility] [address] [place] 2019-10-31 2019-10-31 [facility] Marcio, UNIVERSIT 1.2.840.114 [id number] 09:56:42 23:59:00 Encounter Omi Y HEALTH 350.1.13.10 CLINICS 4.2.7.2.686 [id number] [facility] 2019-10-31 2019-10-31 Outpatient R [facility] [id number] Univers 00:00:00 00:00:00 OMI miller [facility] 2019-10-27 2019-10-27 [facility] 1.2.840.114 [id number] Univers 14:13:13 23:00:04 Visit [facility] 350.1.13.10 it y of [place] - [phone] Med ical [facility] [address] [place] 2019-10-27 2019-10-27 [facility] 1.2.840.114 [id number] 14:13:13 23:00:04 Visit [facility] 350.1.13.10 [place] 4.2.7.2.686 Center - [id number] [facility] 408 2019-10-27 2019-10-27 Outpatient Scooby [facility] [id number] Univers 14:30:00 14:30:00 GERI miller [facility] 2019-10-27 2019-10-27 Outpatient Scooby [facility] [id number] Univers 14:30:00 14:30:00 GERI miller [facility] 2019-10-24 2019-10-24 Automobile Service Advisor [facility] UNIVERSIT 1.2.840.114 [id number] Univers 15:18:24 15:33:24 Visit Omi Buckley [facility] 350.1.13.10 ity of [place] [id number] [address] 2019-10-24 2019-10-24 Outpatient [facility] [id number] Univers 15:15:00 15:15:00 OMI ity [facility] 2019-10-24 2019-10-24 Office GAUDENCIO Buckley 1.2.840.114 [id number] Univers 14:23:16 14:53:16 Visit Omi Unruly 350.1.13.10 it y of BUILDING 4.2.7.2.686 [place] as [id number] [address] 2019-10-24 2019-10-24 Outpatient R [facility] [id number] Univers 14:30:00 14:30:00 OMI ity [facility] 2019-10-24 2019-10-24 Outpatient R [facility] [id number] Univers 14:30:00 14:30:00 OMI ity [facility] 2019-10-24 2019-10-24 Case Alanna NEVAREZ 1.2.840.114 [id number] Univers 00:00:00 00:00:00 Management , Jadyn CURRY 350.1.13.10 ity of [facility] 4.2.7.2.686 Juan as [phone] [address] 2019-10-17 2019-10-17 Telephone GAUDENCIO Buckley 1.2.840.114 [id number] Univers 00:00:00 00:00:00 Omi H 350.1.13.10 it y of BUILDING 4.2.7.2.686 Juan as [id number] [address] 2019-10-17 2019-10-17 Wagner NEVAREZ 1.2.840.114 [id number] Univers 00:00:00 00:00:00 Management , Jadyn CURRY 350.1.13.10 ity of HOSPITAL 4.2.7.2.686 Juan as [id number] [facility] [address] [place] 2019-10-14 2019-10-14 Orders Doctor GERI 1.2.840.114 [id number] Univers 00:00:00 00:00:00 Only Unassigned, PATRICIO 350.1.13.10 ity of [place] [facility] 4.2.7.2.686 Juan as [id number] [facility] [address] [place] 2019-10-03 2019-10-03 Outpatient [facility] [id number] Univers 15:00:00 15:00:00 OMI ity of [facility] 2019-09-20 2019-09-20 Telephone GAUDENCIO Buckley 1.2.840.114 [id number] Univers 00:00:00 00:00:00 Omi H 350.1.13.10 it y of [facility] 4.2.7.2.686 Juan as [id number] [address] 2019-09-20 2019-09-20 Patient GAUDENCIO Leblanc 1.2.840.114 [id number] Univers 00:00:00 00:00:00 Outreach Cherindy Rowland H 350.1.13.10 ity of [facility] 4.2.7.2.686 Juan as [id number] [address] 2019-09-14 2019-09-14 Outpatient [facility] [id number] Univers 00:00:00 00:00:00 ity of [facility] 2019-08-24 2019-08-24 Case GAUDENCIO Buckley 1.2.840.114 [id number] Univers 00:00:00 00:00:00 Management Omi H 350.1.13.10 ity of BUILDING 4.2.7.2.686 [place] as [id number] [address] 2019-08-24 2019-08-24 Multidisci RUBY Dyer .2.840.11 4 [id number] Univers 00:00:00 00:00:00 plinary Moses B Y HEALTH 350.1.13.10 i ty of [place] CLINICS 4.2.7.2.686 [place] [id number] [address] 2019-08-23 2019-08-23 Office GAUDENCIO Buckley 1.2.840.114 [id number] [facility] 13:53:35 16:39:18 Visit Omi Unruly 350.1.13.10 it y of BUILDING 4.2.7.2.686 Juan as [id number] [address] 2019-08-23 2019-08-23 Outpatient [facility] [id number] Univers 14:00:00 14:00:00 OMI ity [facility] 2019-08-23 2019-08-23 Patient GAUDENCIO Leblanc 1.2.840.114 [id number] Univers 00:00:00 00:00:00 Outreach Marti Tolliver 350.1.13.10 ity of BUILDING 4.2.7.2.686 [place] as [id number] [address] Results Test Description Test Time Test Comments Results Result Comments Source POCT CREATININE 2022-03-14 21:37:34 Test Item Value Reference Range Interpretation Comme nts POCT Creatinine (test code = 6499338443) 0.8 mg/dL 0.5-1.1 Lab Interpretation (test code = 63082-4) [facility]APID TESTING)2019-11-30 05:07:00 Test Item Value Reference Range Interpretation Comments SARS-CoV-2 Rapid ID NOW Not Detected Not Detected (test code = 09678-2) GOLD (test code = GOLD) ID NOW COVID-19 Assay is an isothermal nucleic acid amplification test intended for the qualitative detection of nucleic acid from SARS-CoV-2 viral RNA in nasopharyngeal (GROUP CARE WORKER) specimens. It is used under Emergency Use Authorization (EUA) by FDA. The limit of detection (LOD) of the assay is 125 Genome Equivalents/mL. A positive result is indicative of the presence of SARS-CoV-2 RNA. ?Clinical correlation with patient history and other diagnostic information is necessary to determine patient infection status. A negative (Not Detected) result does not preclude SARS-CoV-2 infection. In patients with clinical symptoms and other tests that are consistent with SARS-CoV-2 infection, negative results should be treated as presumptive negative and a new specimen should be tested with alternative PCR molecular test. Invalid: Please collect a new specimen for repeat patient testing if clinically indicated. Lab Interpretation Normal (test code = 78032-0) [facility]. METABOLIC PANEL (01053)2019-11-30 03:21:00 Test Item Value Reference Range Interpretation Comments NA (test code = 139 mmol/L 135-145 3216917950) K (test code = 3.8 mmol/L 3.5-5 1898494105) CL (test code = 101 mmol/L 98-108 4439420985) CO2 TOTAL (test code = 26 mmol/L 23-31 5348605920) AGAP (test code = 2-16 7112645134) BUN (test code = 9 mg/dL 7-23 4059609029) GLUCOSE (test code = 105 mg/dL 70-110 9831998819) CREATININE (test code = 0.63 mg/dL 0.5-1.04 3170574752) TOTAL BILI (test code = 0.4 mg/dL 0.1-1.9 4624399653) CALCIUM (test code = 9.8 mg/dL 8.6-10.6 8838402350) T PROTEIN (test code = 8.0 g/dL 6.3-8.2 0999778538) ALBUMIN (test code = 4.5 g/dL 3.5-5 0204071009) ALK PHOS (test code = 63 U/L 34-122 1877965297) ALTv (test code = 9 U/L 5-35 1742-6) AST(SGOT) (test code = 45 U/L 13-40 H 9860988316) eGFR Calculation mL/min/1.73m2 (Non-) (test code = 5023900056) eGFR Calculation mL/min/1.73m2 () (test code = 7028774602) GOLD (test code = GOLD) Association of Glomerular Filtration Rate (GFR) and Staging of Kidney Disease* + --+ --+ ------+| GFR (mL/min/1.73 m2) ?| With Kidney Damage ?| ?Without Kidney Damage+ --------+ --------+ +| ?>90 ?| ?Stage one ?| ? Normal ?+ ---+ ---+ -------+| ?60-89 ?| ?Stage two ?| ? Decreased GFR ? + --+ --+ ------+| ?30-59 ?| ?Stage three ?| ? Stage three ? + --+ --+ ------+| ?15-29 ?| ?Stage four ? | ? Stage four ?+ ---+ ---+ -------+| ?<15 (or dialysis) ? ?| ?Stage five ? | ? Stage five ?+ ---+ ---+ -------+ *Each stage assumes the associated GFR level has been in effect for at least three months. ?Stages 1 to 5, with or without kidney disease, indicate chronic kidney disease. Notes: Determination of stages one and two (with eGFR >59mL/min/1.73 m2) requires estimation of kidney damage for at least three months as defined by structural or functional abnormalities of the kidney, manifested by either:Pathological abnormalities or Markers of kidney damage (including abnormalities in the composition of the blood or urine or abnormalities in imaging tests). Lab Interpretation Abnormal (test code = 91981-6) [facility] 03[facility]21:00 Test Item Value Reference Range Interpretation Comments LIPASE (test code = 0142189597) 66 U/L 0-220 Lab Interpretation (test code = Normal 87887-0) [facility] 02:57:00 Test Item Value Reference Range Interpretation Comments APPEARANCE (test code = Hazy Clear A 3442183403) COLOR (test code = Yellow Yellow 9736501902) PH (test code = 4.8-8.0 4027951517) SP GRAVITY (test code = 1.003-1.030 9216210477) GLU U QUAL (test code = Normal Normal 9374842361) BLOOD (test code = Negative Negative 5610226410) KETONES (test code = Negative Negative 8176963931) PROTEIN (test code = Negative Negative 2887-8) UROBILIN (test code = Normal Normal 8869285867) BILIRUBIN (test code = Negative Negative 5276901126) NITRITE (test code = Negative Negative 1254515626) LEUK MERRITT (test code = 500/uL Negative A 3471075772) RBC/HPF (test code = See_Comment H [Autom ated message] 3076024139) The system SMS [employer] generated this result transmitted ref erence range: 0 - 3 HP F. The reference range was not used to int erpret this result as normal/abnormal . WBC/HPF (test code = See_Comment H [Autom ated message] 2991272161) The system SMS [employer] generated this result transmitted ref erence range: 0 - 5 HP F. The reference range was not used to int erpret this result as normal/abnormal . BACTERIA (test code = Few Negative A 4728157974) MUCOUS (test code = Moderate Negative LPF A 1841225119) SQ EPITH (test code = See_Comment H [Auto mated message] 4198990225) The system SMS [employer] generated this result transmitted ref erence range: <=2 HPF. The reference range was not used to int erpret this result as normal/abnormal . Lab Interpretation (test Abnormal code = 62295-1) [facility] WITH [id number] 02:51:00 Test Item Value Reference Range Interpretation Comments WBC (test code = See_Comment H [Automated 6690-2) message] The sy stem which generated this result transmitted reference range : 4.30 - 11.10 10*3/?L. The reference range was not used to interpret this result as normal/abnormal . RBC (test code = See_Comment [Automated 789-8) message] The sy stem which generated this result transmitted reference range : 3.93 - 5.25 10*6/?L. The reference range was not used to interpret this result as normal/abnormal . HGB (test code = 13.2 g/dL 11.6-15 718-7) HCT (test code = 40.8 % 35.7-45.2 4544-3) MCV (test code = 87.4 fL 80.6-95.5 787-2) MCH (test code = 28.3 pg 25.9-32.8 785-6) MCHC (test code = 32.4 g/dL 31.6-35.1 786-4) RDW-SD (test code = 45.1 fL 39-49.9 77641-6) RDW-CV (test code = 14.0 % 12-15.5 788-0) PLT (test code = See_Comment H [Automated 777-3) message] The sy stem which generated this result transmitted reference range : 166 - 358 10*3/ ?L. The reference r regina was not used to interpret this result as normal/abnormal . MPV (test code = 9.1 fL 9.5-12.9 L 72075-4) NRBC/100 WBC (test See_Comment [Automat ed code = 7424692897) message] The system which generated this result transmitted reference range : 0.0 - 10.0 /100 WBCs. The refer ence range was not u sed to interpret th is result as normal/abnormal . NRBC x10^3 (test code <0.01 See_Comment [Auto mated = 1699371482) message] The s ystem which generated this result transmitted reference range : 10*3/?L. The reference range was not used to interpret this result as normal/abnormal . GRAN MAT (NEUT) % 71.6 % (test code = 770-8) IMM GRAN % (test code 0.30 % = 6912652060) LYMPH % (test code = 21.8 % 736-9) MONO % (test code = 5.3 % 5905-5) EOS % (test code = 0.6 % 713-8) BASO % (test code = 0.4 % 706-2) GRAN MAT x10^3(ANC) 9.90 10*3/uL 1.88-7.09 H (test code = 7525427406) IMM GRAN x10^3 (test 0.04 10*3/uL 0-0.06 code = 8826404309) LYMPH x10^3 (test code 3.02 10*3/uL 1.32-3.29 = 731-0) MONO x10^3 (test code 0.74 10*3/uL 0.33-0.92 = 742-7) EOS x10^3 (test code = 0.09 10*3/uL 0.03-0.39 711-2) BASO x10^3 (test code 0.06 10*3/uL 0.01-0.07 = 704-7) Lab Interpretation Abnormal (test code = 50880-3) [facility] [id number] 02:29:00 Test Item Value Reference Range Interpretation Comments POCT PREG (test code = 1605) negative On board controls acceptable with present C Line (test code = 3574) POCT PREG LOT # (test code = 3575) [id number] POCT PREG TEST DATE (test 2020-11-13 code = 3576) Lab Interpretation (test code = Normal 30350-4) [facility]2019[facility]25 19:37:00 Test Item Value Reference Range Interpretation Comments SARS-CoV-2 Rapid ID NOW Not Detected Not Detected (test code = 57449-7) GOLD (test code = GOLD) ID NOW COVID-19 Assay is an isothermal nucleic acid amplification test intended for the qualitative detection of nucleic acid from SARS-CoV-2 viral RNA in nasopharyngeal ([employer]) specimens. It is used under Emergency Use Authorization (EUA) by FDA. The limit of detection (LOD) of the assay is 125 Genome Equivalents/mL. A positive result is indicative of the presence of SARS-CoV-2 RNA. ?Clinical correlation with patient history and other diagnostic information is necessary to determine patient infection status. A negative (Not Detected) result does not preclude SARS-CoV-2 infection. In patients with clinical symptoms and other tests that are consistent with SARS-CoV-2 infection, negative results should be treated as presumptive negative and a new specimen should be tested with alternative PCR molecular test. Invalid: Please collect a new specimen for repeat patient testing if clinically indicated. Lab Interpretation Normal (test code = 17685-4) [facility] [id number] 21:45:23 1. ?Scattered noncalcified lung nodules, measuring up to 6 mm, nonspecific.Attention on follow-up imaging. 2. ?Mild biapical emphysematous changes I, Javier He MD., have reviewed this study and agree with theabove report. PROCEDURE: CT CHEST WITH CONTRAST - CHEST PROTOCOL CLINICAL INDICATION: Rectal adenocarcinoma ? COMPARISON: ?None. TECHNIQUE: ?Helical CTwas performed of the chest (lung apices to bases)using 120 mL Omnipaque 350 nonionic intravenous contrast, withoutcomplication. Images were reconstructed at 1.25 mm slice thickness. MIP andcoronal & sagittal MPR images were generated and reviewed. (DFOV = 40 cm) FINDINGS: Lower neck/thyroid: Unremarkable. Lungs: Biapical mild centrilobular emphysematous changes are noted. A 7 mm rightposterior lower lobe pulmonary cyst (8:84). The following noncalcified pulmonary nodules are identified:-3 mm ante rior left upper lobe nodule (8:34).-5 mm superior right lower lobe nodule (8:59).- 4 mm lateral leftlower lobe nodule (8:62).-6 mm posterolateral left lower lobe nodule (3:65).-3 mm right middle lobe nodule (8:70). No focal consolidation is identified. Central airway: A focal area and density is seenin the dependent portionof the mid trachea, likely represent a mucous plug. The central airway isotherwise patent. Pleura: No pleural effusion, thickening or pneumothorax. Thoracic aorta and great vessels: Classic three-vessel aortic archbranching of hemorrhage is noted. The opacification and diameterof thethoracic aorta are normal.. Pulmonary arteries: The opacification and diameter of the main pulmonarytrunk, right and left pulmonary arteries are normal. Heart and pericardium: No detectable coronary arterial calcification.Unremarkable cardiac morphology and pericardium. Lymph nodes: No enlarged thoracic lymph nodes. Mediastinum: Unremarkable. Thoracic spine and chest wall: Unremarkable, with normal thoracic vertebralbody heights. Other Lines/Tubes/Devices/Hardware: A right-sided chest wall Chemo-Portterminates in the superior vena cava. Visualized upper abdomen: Please refer to the concurrently obtained andseparately dictated CT abdomen and pelvis for further details. [facility], Radiant Results Inft User - 11/11/2019 4:46 PM CDTPROCEDURE: CT CHEST WITH CONTRAST - CHEST PROTOCOLCLINICAL INDICATION: Rectal adenocarcinoma COMPARISON: None.TECHNIQUE: Helical CT was per formed of the chest (lung apices to bases)using 120 mL Omnipaque 350 nonionic intravenous contrast, withoutcomplication. Images were reconstructed at 1.25 mm slice thickness. MIP andcoronal & sagittal MPR images were generated and reviewed. (DFOV = 40 cm)FINDINGS:Lower neck/thyroid: Unremarkable.Lungs: Biapical mild centrilobular emphysematous changes are noted. A 7 mm rightposterior lower lobe pulmonary cyst (8:84).The following noncalcified pulmonary nodules are identified:-3 mm anterior left upper lobe nodule (8:34).-5 mm superior right lower lobe nodule (8:59).- 4 mm lateral left lower lobenodule (8:62).-6 mm posterolateral left lower lobe nodule (3:65).-3 mm right middle lobe nodule (8:70).No focal consolidation is identified.Central airway: A focal area and density is seen in the dependent portionof the mid trachea, likely represent a mucous plug. The central airway isotherwise patent.Pleura: No pleural effusion, thickening or pneumothorax.Thoracic aorta and great vessels: Classic three-vessel aortic archbranching of hemorrhage is noted. The opacification and diameter of thethoracicaorta are normal..Pulmonary arteries: The opacification and diameter of the main pulmonarytrunk, right and left pulmonary arteries are normal.Heart and pericardium: No detectable coronary arterial calcification.Unremarkable cardiac morphology and pericardium.Lymph nodes: No enlarged thoracic lymph nodes.Mediastinum: Unremarkable.Thoracic spine and chest wall: Unremarkable, with normal thoracic vertebralbody heights.Other Lines/Tubes/Devices/Hardware: A right-sided chest wall Chemo-Portterminates in t he superior vena cava.Visualized upper abdomen: Please refer to the concurrently obtained andseparately dictated CT abdomen and pelvis for further details. IMPRESSION1. Scattered noncalcified lung nodules, measuring up to 6 mm, nonspecific.Attention on follow-up imaging.2. Mild biapical emphysematous changes I, Javier He MD., have reviewed this study and agree with theabove report. [facility] [id number] 18:55:37 Impression: 1. ?A low rectal tumor is seen measuring approximately 5 cm in length andapproaching theanal verge. There is extension outside the muscularisinvolving the left lateral wall (2 to 5:00 position) with involvement ofthe internal anal sphincter and abutment of the external anal sphincter.More inferiorly there is extension to involve the perineal soft tissues(9:26) and suspected involvement of the anterior wall of the vagina (6:39).Tumor characteristics suggest a T3c tumor. 2. ?A right inguinal lymph node measures 0.8 cm in short axis. Small lymphnodes seen in the right perirectal fat measur ing 0.6 cm and 0.4 cm (9:14and 13) are suspicious for paula metastases. Findings suggest N1 disease.Exam: MR PELVIS W WO CONTRAST Clinical History: Follow up of Rectal Adenocarcinoma Comparison: None Findings: The uterus and cervix are unremarkable. Tiny nabothian cysts are seen inthe cervix (6:43). The endometrial thickness measures 0.6 cm. The urinarybladder is unremarkable. The vagina is within normal limits. Bilaterally the ovaries show presenceof developing follicles (8:18 and 20). A corpus luteal cyst is seen in theleft ovary. A low rectal tumor is seen measuring approximately 5 cm in lengthandapproaching the anal verge. The tumor is seen extending outside the analcanal to involve the internal anal sphincter. The tumor abuts the externalanal sphincter (7:20). It involves the rectum/anal canal at this levelcircumferentially. The extension outside the muscularis (measuring 0.8 cm)is seen predominantly involving the left lateral wall (9:17 and 7:19), 2 to5:00 position. More inferiorly there is extension to involve the perinealsoft tissues (9:26) and suspected involvement of the anterior wall of thevagina (6:39). Minimal free fluid is seen in the pelvis. A right inguinal lymph node isseenmeasuring 0.8 cm in short axis (9:7). No evidence of pelviclymphadenopathy. No focal bone lesions are seen. [facility], Radiant Results Inft User - 11/08/2019 1:56 PM CDTExam: MR PELVIS W WO CONTRASTClinicalHistory: Follow up of Rectal Adenocarcinoma Comparison: NoneFindings: The uterus and cervix are unremarkable. Tiny nabothian cysts are seen inthe cervix (6:43). The endometrial thickness measures 0.6 cm. The urinarybladder is unremarkable. The vagina is within normal limits. Bilaterally the ovaries show presenceof developing follicles (8:18 and 20). A corpus luteal cyst is seen in theleft ovary.A lowrectal tumor is seen measuring approximately 5 cm in length andapproaching the anal verge. The tumoris seen extending outside the analcanal to involve the internal anal sphincter. The tumor abuts the e xternalanal sphincter (7:20). It involves the rectum/anal canal at this levelcircumferentially. The extension outside the muscularis (measuring 0.8 cm)is seen predominantly involving the left lateral wall (9:17 and 7:19), 2 to5:00 position. More inferiorly there is extension to involve the perinealsoft tissues (9:26) and suspected involvement of the anterior wall of thevagina (6:39).Minimal free fluid is seen in the pelvis. A right inguinal lymph node isseen measuring 0.8 cm in short axis (9:7). No evidence of pelviclymphadenopathy. No focal bone lesions are seen.IMPRESSIONImpression: 1. A low rectal tumor is seen measuring approximately 5 cm in length andapproaching the anal verge. There is extension outside the muscularisinvolving the left lateral wall (2 to 5:00 position) with involvement ofthe internal anal sphincter and abutment of the external anal sphincter.More inferiorly there is extension to involve the perineal soft tissues(9:26) and suspected involvement of the anterior wall of the vagina (6:39).Tumor characteristics suggest a T3c tumor.2. A right inguinal lymph node measures 0.8 cm in short axis. Small lymphnodes seen in the right perirectal fat measuring 0.6 cm and 0.4 cm (9:14and 13) are suspicious for paula metastases. Findings suggest N1 disease.[facility] CenterURINALYSIS2020-08-17 16:12:00 Test Item Value Reference Range Interpretation Comments APPEARANCE (test code = Hazy Clear A [id number]) COLOR (test code = Yellow Yellow 9070738836) PH (test code = 4.8-8.0 7685363667) SP GRAVITY (test code = 1.003-1.030 0850247169) GLU U QUAL (test code = Normal Normal 4153750706) BLOOD (test code = 1+ Negative A 8205465237) KETONES (test code = Negative Negative 8039290737) PROTEIN (test code = Negative Negative 2887-8) UROBILIN (test code = 2.0 mg/dL Normal A 2077218437) BILIRUBIN (test code = Negative Negative 9293103414) NITRITE (test code = Negative Negative 4852801324) LEUK MERRITT (test code = 25/uL Negative A 6132104461) RBC/HPF (test code = See_Comment [Autom ated message] 2843944926) The system SMS [employer] generated this result transmit glenda reference range : 0 - 3 HPF. The refe rence range was not u sed to interpret th is result as normal/abnormal . WBC/HPF (test code = See_Comment [Autom ated message] 4939025906) The system [employer] generated this result transmit glenda reference range : 0 - 5 HPF. The refe rence range was not u sed to interpret th is result as normal/abnormal . BACTERIA (test code = Few Negative A 8975768829) MUCOUS (test code = Slight Negative LPF A 9976193465) SQ EPITH (test code = See_Comment H [Auto mated message] 9621241985) The system [employer] generated this result transmit glenda reference range : <=2 HPF. The refere nce range was not u sed to interpret th is result as normal/abnormal . Lab Interpretation (test Abnormal code = 81047-1) [facility] WITH [id number] 15:27:00 Test Item Value Reference Range Interpretation Comments WBC (test code = See_Comment H [Automated 6690-2) message] The system which generated this result transmit glenda reference range : 4.30 - 11.10 10*3/?L. The reference range was not used to interpret this result as normal/abnormal . RBC (test code = See_Comment [Automated 789-8) message] The system which generated this result transmit glenda reference range : 3.93 - 5.25 10*6/?L. The reference range was not used to interpret this result as normal/abnormal . HGB (test code = 14.5 g/dL 11.6-15 718-7) HCT (test code = 44.1 % 35.7-45.2 4544-3) MCV (test code = 86.1 fL 80.6-95.5 787-2) MCH (test code = 28.3 pg 25.9-32.8 785-6) MCHC (test code = 32.9 g/dL 31.6-35.1 786-4) RDW-SD (test code = 42.7 fL 39-49.9 46126-8) RDW-CV (test code = 13.6 % 12-15.5 788-0) PLT (test code = See_Comment H [Automated 777-3) message] The system which generated this result transmit glenda reference range : 166 - 358 10*3/ ?L. The reference range was not u sed to interpret th is result as normal/abnormal . MPV (test code = 9.0 fL 9.5-12.9 L 94311-9) NRBC/100 WBC (test See_Comment [Automat ed code = 4800940799) message] The system which generated this result transmit glenda reference range : 0.0 - 10.0 /100 WBCs. The reference range was not used to interpret this result as normal/abnormal . NRBC x10^3 (test code <0.01 See_Comment [Auto mated = 3137435135) message] The system which generated this result transmit glenda reference range : 10*3/?L. The reference range was not used to interpret this result as normal/abnormal . GRAN MAT (NEUT) % 69.8 % (test code = 770-8) IMM GRAN % (test code 0.40 % = 0210612872) LYMPH % (test code = 23.4 % 736-9) MONO % (test code = 5.4 % 5905-5) EOS % (test code = 0.7 % 713-8) BASO % (test code = 0.3 % 706-2) GRAN MAT x10^3(ANC) 10.33 10*3/uL 1.88-7.09 H (test code = 3636527585) IMM GRAN x10^3 (test 0.06 10*3/uL 0-0.06 code = 3999300465) LYMPH x10^3 (test code 3.47 10*3/uL 1.32-3.29 H = 731-0) MONO x10^3 (test code 0.80 10*3/uL 0.33-0.92 = 742-7) EOS x10^3 (test code = 0.11 10*3/uL 0.03-0.39 711-2) BASO x10^3 (test code 0.05 10*3/uL 0.01-0.07 = 704-7) Lab Interpretation Abnormal (test code = 48711-9) [facility]"
--- NOTE | 2022-05-07 19:35 | EDPHYS ---
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 19:25 The patient presents with vaginal discharge, that is a small amount of isaac. Onset: The rn symptoms/episode began/occurred this morning. Modifying factors: The symptoms are alleviated by nothing, the symptoms are aggravated by nothing. Associated signs and symptoms: Pertinent positives: cramping, Pertinent negatives: fever, hematuria, vaginal bleeding. Severity of symptoms: At their worst the symptoms were mild, in the emergency department the symptoms are unchanged. The patient has experienced similar episodes in the past. The patient has not recently seen a physician. Pt reports has hx of colon and uterine/vulvar cancer, this AM began with isaac vaginal discharge. Reports has had this before and told related to her uterine cancer. No external skin changes other than "being raw". No trauma. Just got out of retirement. Her doctors are at [facility]. . Historical: - Allergies: 19:16 No Known Allergies; as6 - PMHx: 19:16 colon cancer; kidney infection; as6 - PSHx: 19:16 Colostomy; as6 - Immunization history:: Client reports having NOT received the Covid vaccine. - Social history:: Smoking status: Patient reports the use of cigarette tobacco products, denies chronic smoking, but will smoke occasionally. - Family history:: not pertinent. - Hospitalizations: : No recent hospitalization is reported. ROS: 19:25 Constitutional: Negative for fever, chills, and weight loss, Cardiovascular: Negative rn for chest pain, palpitations, and edema, Respiratory: Negative for shortness of breath, cough, wheezing, and pleuritic chest pain, Abdomen/GI: Negative for nausea, vomiting, diarrhea, and constipation, Back: Negative for injury and pain, : + vaginal discharge MS/Extremity: Negative for injury and deformity, Skin: Negative for injury, rash, and discoloration, Neuro: Negative for headache, weakness, numbness, tingling, and seizure. Exam: 19:25 Constitutional: This is a well developed, well nourished patient who is awake, alert, rn and in no acute distress. Head/Face: Normocephalic, atraumatic. Cardiovascular: Regular rate and rhythm. No pulse deficits. Respiratory: No increased work of breathing, no retractions or nasal flaring. Abdomen/GI: soft, non-tender, LLQ colostomy bag in place Skin: Warm, dry MS/ Extremity: Pulses equal, no cyanosis. Neuro: Awake and alert, GCS 15 Vital Signs: 19:13 BP 119 / 76; Pulse 94; Resp 18 S; Temp 98.3(TE); Pulse Ox 97% on R/A; Weight 68.04 kg as6 (R); Height 5 ft. 3 in. (160.02 cm) (R); Pain 9/10; 19:13 Body Mass Index 26.57 (68.04 kg, 160.02 cm) as6 MDM: 19:11 Patient medically screened. rn 19:25 Differential diagnosis: cervicitis, malignancy, uterine fibroids, vaginosis, vaginitis, rn uterine infection, abscess. Data reviewed: vital signs, nurses notes. I considered the following discharge prescriptions or medication management in the emergency department I discussed and recommended Over The Counter medications. Test considered but Not performed: Ultrasound Pelvic ultrasound and CT abdomen/pelvis considered but not done because patient declines, she states knows its "not going to look normal anyway". Counseling: I had a detailed discussion with the patient and/or guardian regarding: the historical points, exam findings, and any diagnostic results supporting the discharge/admit diagnosis, the need for outpatient follow up, to return to the emergency department if symptoms worsen or persist or if there are any questions or concerns that arise at home. ED course: Pt also reports no external skin changes. Offered to wait until she gets into room for full exam, pt declines, states "nothing has changed down there". Will cover her with abx and will have her f/u closely with her physicians at [facility].. 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
--- NOTE | 2022-05-07 19:35 | ER ---
Nurse's Notes [facility] Name: Latosha Wilkinson Age: 36 yrs Sex: Female : 1985 Arrival Date: 05/07/2022 Time: 19:05 Bed DIS5 Private MD: Diagnosis: Abnormal vaginal discharge Presentation: 05/07 19:13 Chief complaint: Patient states: "I have stage 4 colon cancer that is in my uterus, and as6 today I started noticing a flor vaginal discharge and I'm always in pain but today my pain has been worse". Coronavirus screen: At this time, the client does not indicate any symptoms associated with coronavirus-19. Ebola Screen: No symptoms or risks identified at this time. Initial Sepsis Screen: Does the patient meet any 2 criteria? No. Patient's initial sepsis screen is negative. Does the patient have a suspected source of infection? No. Patient's initial sepsis screen is negative. Risk Assessment: Do you want to hurt yourself or someone else? Patient reports no desire to harm self or others. Onset of symptoms was May 07, 2022. 19:13 Method Of Arrival: Ambulatory as6 19:13 Acuity: MARIANNE 3 as6 Triage Assessment: 19:30 General: Appears uncomfortable, Behavior is calm, cooperative. Pain: Complains of pain as6 in abdomen. : Reports discharge, from vagina that is flor. Historical: - Allergies: 19:16 No Known Allergies; as6 - PMHx: 19:16 colon cancer; kidney infection; as6 - PSHx: 19:16 Colostomy; as6 - Immunization history:: Client reports having NOT received the Covid vaccine. - Social history:: Smoking status: Patient reports the use of cigarette tobacco products, denies chronic smoking, but will smoke occasionally. - Family history:: not pertinent. - Hospitalizations: : No recent hospitalization is reported. Screenin:31 [facility] ED Fall Risk Assessment (Adult) Score/Fall Risk Level 0 - 2 = Low Risk. Abuse as6 screen: Denies threats or abuse. Denies injuries from another. Nutritional screening: No deficits noted. Tuberculosis screening: No symptoms or risk factors identified. Vital Signs: 19:13 BP 119 / 76; Pulse 94; Resp 18 S; Temp 98.3(TE); Pulse Ox 97% on R/A; Weight 68.04 kg as6 (R); Height 5 ft. 3 in. (160.02 cm) (R); Pain 9/10; 19:13 Body Mass Index 26.57 (68.04 kg, 160.02 cm) as6 ED Course: 19:05 Patient arrived in ED. as 19:11 Felix Diamond MD is Attending Physician. rn 19:16 Triage completed. as6 19:17 Arm band placed on. as6 19:30 Mitchell Angel, PETR is Primary Nurse. as6 19:31 Patient has correct armband on for positive identification. as6 19:31 No provider procedures requiring assistance completed. Patient did not have IV access as6 during this emergency room visit. Administered Medications: No medications were administered Medication: 19:31 VIS not applicable for this client. as6 Outcome: 19:31 Discharged to home ambulatory. as6 19:31 Condition: stable 19:34 Discharge ordered by . rn 19:44 Discharge instructions given to patient, Instructed on discharge instructions, follow as6 up and referral plans. medication usage, Demonstrated understanding of instructions, follow-up care, medications, Prescriptions given X 2. 19:45 Patient left the ED. as6 Signatures: Sudha Covington as Felix Diamond MD MD rn Slawson, Ashby, RN RN as6
[2022-05-07 20:40] VITALS: BP 119/76; TEMP 98.3; O2SAT 97
== END 2022-05-07 19:45 | disposition home or self-care (01) ==
LOC: ER 19:02
DX: N89.8 Other specified noninflammatory disorders of vagina (principal); F17.210 Nicotine dependence, cigarettes, uncomplicated
CPT/HCPCS: 99282